=== PATIENT | female | born 1955 | race Caucasian/White ===

== ENCOUNTER 2025-02-01 17:14 | Outpatient (REF) | payer MEDICARE, MEDICAID, SELFPAY ==
[2025-02-01 17:38] LABS: Hematocrit 44.9 % (36.0-48.0); Hemoglobin 14.3 g/dL (12.0-16.0); Immature Granulocytes Abs Auto 0.18 10^3/uL (0.00-0.03); Immature Granulocytes Pct Auto 1.7 % (0.0-0.5); Lymphocytes Absolute Auto 2.8 10^3/uL (1.2-3.8); Mean Corpuscular HGB Conc 31.8 g/dL (29.9-35.2); Mean Corpuscular Hemoglobin 32.4 pg (26.7-34.0); Mean Corpuscular Volume 101.8 fL (81.0-99.0); Platelet Count 181 10^3/uL (150-450); Red Blood Count 4.41 10^6/uL (4.20-5.40); White Blood Count 10.5 10^3/uL (4.0-11.0)
[2025-02-01 17:52] LABS: Alanine Aminotransferase 16 U/L (14-59); Albumin Globulin Ratio 0.7; Albumin Level 3.0 g/dL (3.4-5.0); Alkaline Phosphatase 174 U/L (46-116); Anion Gap 9.6; Aspartate Amino Transferase 22 U/L (15-37); Blood Urea Nitrogen 15.0 mg/dL (7.0-18.0); Calcium 9.1 mg/dL (8.5-10.1); Carbon Dioxide 34.0 mmol/L (21.0-32.0); Chloride 105 mmol/L (98-107); Estimated GFR (African America >60 (>=60 mL/min/1.73m^2); Estimated GFR (Non-African Ame >60 (>=60 mL/min/1.73m^2); Globulin 4.6 g/dL; Glucose 77 mg/dL (74-106); Magnesium 2.0 mg/dL (1.8-2.4); Potassium 4.6 mmol/L (3.5-5.1); Sodium 144 mmol/L (136-145); Total Protein 7.6 g/dL (6.4-8.2)
== END 2025-02-01 17:15 | disposition home or self-care (01) ==
LOC: LAB 17:14
PROVIDERS: PCP Nurse Practitioner Family; Visit Provider Nurse Practitioner Family
DX: R41.82 Altered mental status, unspecified (principal)
CPT/HCPCS: 36415; 80053; 80164; 83735; 85025

== ENCOUNTER 2025-02-04 14:55 | Outpatient (REF) | payer MEDICARE, MEDICAID, SELFPAY ==
--- OUTSIDE RECORDS SUMMARY | 2025-01-21 15:16 | XMS_ITS | Encounter Summary ---
Author Organization [facility] [employer] [facility] Address [id number] [address] [place] [address] Care Team Providers Care Record Center Specialist Name Role Phone Sandy Tejeda ORCHARD WORKER-PASSENGER SERVICE AGENT Primary Care Provider [phone] Reason for Visit * Reason Comments Fall Pt arrives via ems f [facility]. Pt states she bent over to pick something up and fell backwards falling to her buttocks first. Pt c/o lower back, right ankle, and neck pain. Encounter Details Date Type Department Care Team (Late st Contact Info) Description 01/21/2025 3:16 PM EDT - 01/21/2025 6:10 PM EDT Emergency [facility] - Emergency [address] [place] [id number] Carmen Tejeda, DO [address] [place] [address] Fall, initial encounter (Primary Dx) Discharge Disposition: Home Social History Tobacco Use Types Packs/Day Years Used Date Smoking Tobacco: Former Cigarettes 1 20 Smokeless Tobacco: Never Comments:quit in early 's Alcohol Use Standard Drinks/Week Comments No 0 (1 standard drink = 0.6 oz pur e alcohol) Childcare Answer Date Recorded Childcare Unknown 12/27/2018 Employment Answer Date Recorded Employment Unknown 12/27/2018 Hunger Screening Answer Date Recorded Within the past 12 months we worried whether our food would run out before we got money to buy more. Never True 01/21/2025 Within the past 12 months th e food we bought just didn't last and we didn't have money to get more. Never True 01/21/2025 Purpose - Life Answer Date Recorded Purpose and direction in life Unknown Comments No Sex and Gender Information Value Date Recorded Sex Assigned at Female 08/08/2018 11:46 PM EST Legal Sex Female 11:59 AM EDT Gender Identity Female 08/08/2018 11:46 PM EST Sexual Orientation Straight 08/08/2018 11 :46 PM EST documented as of this encounter Last Filed Vital Signs Vital Sign Reading Time Taken Comments Blood Pressure 138/81 01/21/2025 3:17 PM EDT Pulse 78 01/21/2025 3:17 PM EDT Temperature 36.7 C (98.1 F) 01/21/2025 3:17 PM EDT Respiratory Rate 18 01/21/2025 3:17 PM EDT Oxygen Saturation 93% 01/21/2025 3:17 PM EDT Inhaled Oxygen Concentration - - Weight 81.6 kg (180 lb) 01/21/2025 3:17 PM EDT Height 167.6 cm (5' 6 ) 01/21/2025 3:17 PM EDT Body Mass Index 29.05 01/21/2025 3:17 PM EDT documented in this encounter Discharge Instructions * Discharge Instructions* Carmen Tejeda DO - 01/21/2025 6:01 PM EDT Please continue antibiotics as directed for your uti. If symptoms are persistent or become worse, please return to the emergency department immediately. If you have any other questions or concerns, please return to the emergency department immediately. documented in this encounter Medications at Time of Discharge amantadine (SYMMETREL) 100 mg tablet 02/18/2022 aspirin 81 mg chewable tablet Chew 1 tablet (81 mg total) and swallow in the morning. Stopped on 03/18/2017 for surgery. carbidopa-levodop a (SINEMET) 25-100 mg per tablet Take 1 tablet by mouth 3 (three) times a day. 10/16/2024 divalproex (DEPAKOTE) 500 mg EC tablet Take 1,000 mg by mouth nightly. lamoTRIgine (LaMICtal) 150 mg tablet Take 150 mg by mouth daily. mirabegron (MYRBETRIQ) 25 mg tablet extended release 24 hr Take 1 tablet (25 mg total) by mouth in the morning. 30 tablet 02/24/2022 multivitamin (THERAGRAN) tablet Take 1 tablet by mouth daily. OLANZapine (ZyPREXA) 5 mg tablet Take 5 mg by mouth nightly. propranolol LA (INDERAL LA) 120 mg 24 hr capsule Take 160 mg by mouth daily with breakfast. simvastatin (ZOCOR) 20 mg tablet Take 20 mg by mouth nightly. CEPHalexin (KEFLEX) 500 mg capsule Take 1 capsule (500 mg total) by mouth in the morning and 1 capsule (500 mg total) at noon and 1 capsule (500 mg total) in the evening and 1 capsule (500 mg total) before bedtime. Do all this for 7 days. 28 capsule 01/19/2025 01/26/2025 documented as of this encounter ED Notes * Tara Ho APRN-PASSENGER SERVICE AGENT - 01/21/2025 4:46 PM EDT Images from the original note were not included. [facility] - EMERGENCY Pt Name: Rosemary Horowitz Birthdate: 1955 Chief Complaint: Chief Complaint Patient presents with Fall Pt arrives via ems from [facility]. Pt states she bent over to pick something up and fell backwards falling to her buttocks first. Pt c/o lower back, right ankle, and neck pain. History of Present Illness: Patient here following a fall. She lives in an assisted living facility. Patient was recently diagnosed with urinary tract infection was started on antibiotics yesterday. Today she was bending over to pick something up when she lost her balance and fell backwards onto her buttocks. She was unsure if she was struck her head or lost consciousness. She does not appear to take a blood thinner. She was complaining of lower back pain. Also reports neck pain but states that this is chronic for her. Nochest or abdomen pain. No numbness tingling or weakness. No dizziness or lightheadedness. She does have history of Parkinson's, hyperlipidemia, hypertension, and bipolar disorder Past Medical History: Past Medical History: Diagnosis Date Bipolar affective disorder ([facility]-HCC) Broken wrist right Cancer ([facility]-HCC) skin cancer RODRIGUEZ (headache) HL (hearing loss) Hyperlipidemia Hyperparathyroidism Hypertension unsure how long Skin cancer Tremors of nervous system started on cogentin 2 weeks ago for this Urinary tract infection Visual impairment Past Surgical History: Past Surgical History: Procedure Laterality Date BACK SURGERY CARDIAC CATHETERIZATION unsure where or when COLONOSCOPY 2105 polyps removed COLONOSCOPY N/A 04/30/2021 Performed by Tanmay Ospina MD at [facility] CYSTOSCOPY N/A 04/14/2022 Performed by Xiang Murray MD at [facility] CYSTOSCOPY RETROGRADE PYELOGRAM WITH [facility] BLADDER SOLUTION Bilateral 04/14/2022 Performed by Xiang Murray MD at [facility] FRACTURE SURGERY 01/2017 right wrist PARATHYROIDECTOMY MINIMALLY INVASIVE /PTHI N/A 03/25/2017 Performed by Eliud Bradford MD at [facility] [place] SKIN LESION EXCISION x2 skin cancer TONSILLECTOMY age 6 TUBAL LIGATION Family History: Family History Problem Relation Age of Onset Cancer Mother Lung cancer Mother Hypertension Father Anesthesia problems Neg Hx Social History: Social History Socioeconomic History Marital status: Tobacco Use Smoking status: Former Current packs/day: 1.00 Average packs/day: 1 pack/day for 20.0 years (20.0 ttl pk-yrs) Types: Cigarettes Smokeless tobacco: Never Tobacco comments: quit in early Vaping Use Vaping status: Never Used Substance and Sexual Activity Alcohol use: No Drug use: No Sexual activity: Defer Social Drivers of Health Food Insecurity: No Food Insecurity (01/21/2025) Hunger Screening Food Insecurity - Worry: Never True Food Insecurity - Inability: Never True Review of Systems: Review of Systems Physical Exam: ED Triage Vitals [01/21/25 151] Temp Heart Rate Resp BP SpO2 36.7 ??C (98.1 ??F) 78 18 138/81 93 % Temp src Heart Rate Source Patient Position BP Location FiO2 (%) -- -- -- -- -- Vitals: 01/21/257 BP: 138/81 Temp: 36.7 ??C (98.1 ??F) Pulse: 78 Resp: 18 SpO2: 93% Height: 167.6 cm (5' 6 ) Weight: 81.6 kg (180 lb) 93 Physical Exam Vitals reviewed. HENT: Head: Normocephalic and atraumatic. Eyes: Conjunctiva/sclera: Conjunctivae normal. Neck: Comments: In his C-collar Cardiovascular: Rate and Rhythm: Normal rate. Pulmonary: Effort: Pulmonary effort is normal. Breath sounds: Normal breath sounds. Abdominal: General: There is no distension. Palpations: Abdomen is soft. Musculoskeletal: General: Tenderness present. Normal range of motion. Comments: Tender midline lumbar no obvious contusion or abrasion Skin: General: Skin is warm and dry. Neurological: General: No focal deficit present. Mental Status: She is alert and oriented to person, place, and time. GCS: GCS eye subscore is 4. GCS verbal subscore is 5. GCS motor subscore is 6. Procedure: Procedures Re-evaluation: Re-Evaluation Medical Decision Making Patient here for fall at a nursing facility. She leaned over to pick something up lost her balance and fell backwards onto her buttocks. She complains of back pain. CT scan of the head as neck and lumbar spine show no acute process though they noted some ground-glass opacities in the apex of her lung on CT neck. Patient was absolutely no respiratory complaints and she was saturating adequately. She can follow-up with a primary care provider regarding this. She will be discharged back to her nursing facility Amount and/or Complexity of Data Reviewed Radiology: ordered. Details: CT head interpreted by radiology shows no acute process CT cervical spine interpreted by radiology shows no acute process in the cervical spine but notes ground-glass opacities on left lung apex CT lumbar spine interpreted by radiology shows no acute process Pelvis x-ray interpreted by radiology shows no acute process Risk OTC drugs. ED Course: Clinical Impressions as of 01/21/251 Fall, initial encounter . ED Disposition ED Disposition Discharge Date/Time TueJan 21, 2025 6:01 PM Comment At the time of discharge, the plan has been discussed with the patient regarding the diagnosis and prognosis. All questions have been answered. Verbal discharge instructions were discussed with the patient. The patient has been advised to follow up w ith their Primary Care Provider within 1-2 days.The patient was also instructed to return to the ED if their symptoms change, worsen, new symptoms a rise or if they have any additional concerns. Shared/Split Visit 17:38 EDT IPhi), scribed for and in the presence of: Dr. Tejeda who performed the above service. I, Dr. Tejeda personally performed a [id number] diagnostic evaluation on this patient. I personally made and approved the management plan for this patient and take responsibility for the patient management. Additional Notes/Findings: ----- IPhi (scribe), documented on behalf of Dr. Tejeda. 5:39 PM Rosemary Horowitz is a 70 y.o. female presenting to the ED for chief complaint of a fall. Dr. Tejdea personally saw and evaluated the patient. Dr. Tejeda discussed the plan with the LUIS E/ Resident. Dr. Tejeda personally made/approved the management plan for this patient and takes responsibility for the patient management. Exam findings as follows: Constitutional: Awake and alert HENT: Normocephalic and atraumatic Eyes: Conjunctiva unremarkable Cardiovascular: Heart rate regular Pulmonary: Easy work of breathing, speaking in full sentences Abdominal: Flat and non-distended Skin: Warm and dry Musculoskeletal: Moving all extremities spontaneously ----- Please note that portions of this note were completed with a voice recognition program. Efforts were made to edit the dictations but occasionally words are mis-transcribed. ALETA Haddad 01/21/25 1648 Nam Levine 01/21/25 1740 ALETA Haddad 01/21/25 2201 Cosigned by Carmen Tejeda DO at 01/28/2025 10:02 AM EDT documented in this encounter Plan of Treatment Not on file documented as of this encounter Procedures Procedure Name Priority Date/Time Associated Diagnosis Comments XR PELVIS 1 OR 2 VWS STAT 01/21/2025 5:[address] LUMBAR SPINE WO CONT STAT 01/21/2025 4:[address] CERVICAL SPINE WO CONT STAT 01/21/2025 4:[address] BRAIN WO CONT STAT 01/21/2025 4:32 PM EDT documented in this encounter Results * X-ray pelvis 1 or 2 views (01/21/2025 5:53 PM EDT) Anatomical Region Laterality Modality MSK, Pelvis N/A Computed Radiogr aphy 01/21/2025 6:01 PM EDT Narrative 01/21/2025 6:01 PM EDT XR PELVIS 1 OR 2 VWS: 01/21/2025 5:44 PM Clinical: Injury with pain EXAM: PELVIS RADIOGRAPH Number of views: 1 Comparison: None Findings: There is no fracture or destructive lesion. Mild bilateral hip and lower lumbar degenerative changes. There is no distraction of SI joints or pubic symphysis. Impression: * No acute findings to limits of this single view. Finalized by Darryn Key MD on 01/21/2025 6:01 PM Procedure Note Darryn Key MD - 01/21/2025 XR PELVIS 1 OR 2 VWS: 01/21/2025 5:44 PM Clinical: Injury with pain EXAM: PELVIS RADIOGRAPH Number of views: 1 Comparison: None Findings: There is no fracture or destructive lesion. Mild bilateral hip and lower lumbar degenerative changes. There is no distraction of SI joints or pubic symphysis. Impression: * No acute findings to limits of this single view. Finalized by Darryn Key MD on 01/21/2025 6:01 PM us Tara Ho ORCHARD WORKER-PASSENGER SERVICE AGENT IMG DIAGNOSTIC IMAGIN G ORDERABLES Final Result * CT lumbar spine without contrast (01/21/2025 4:33 PM EDT) Anatomical Region Laterality Modality MSK, Neuro, Spine, L-spine, Spine Covera N/A Computed Tomography 01/21/2025 5:13 PM EDT Narrative 01/21/2025 5:15 PM EDT CLINICAL INFORMATION: Fall with low back pain COMPARISON: None TECHNIQUE: CT lumbar spine without contrast. All CT scans at this facility dose modulation, iterative reconstruction, and/or weight based dosing when appropriate to reduce radiation dose to as low as reasonably achievable. FINDINGS: Satisfactory alignment of the lumbar spine. There is partial sacralization at L5. Vertebral body heights are preserved. No compression fracture visualized. Moderate intervertebral disc space height loss with osteophyte formation at L3-4 and L4-5. Mild intervertebral disc space height loss with osteophyte formation at L2-L3. The posterior elements are intact. Mild facet joint hypertrophy at L4-5. The SI joints are symmetric with mild degenerative sclerosis. No paraspinal mass or fluid collection. IMPRESSION: 1. No acute osseous abnormality in the lumbar spine. 2. Mild to moderate degenerative changes in the lower lumbar spine as above. Finalized by uMmtaz Fox MD on 01/21/2025 5:15 PM Procedure Note Mumtaz Fox MD - 01/21/2025 CLINICAL INFORMATION: Fall with low back pain COMPARISON: None TECHNIQUE: CT lumbar spine without contrast. All CT scans at this facilitydose modulation, iterative reconstruction, and/or weight based dosing whenappropriate to reduce radiation dose to as low as reasonably achievable. FINDINGS: Satisfactory alignment of the lumbar spine. There is partial sacralization at L5. Vertebral body heights are preserved. No compression fracturevisualized. Moderate intervertebral disc space height loss with osteophyte formationat L3-4 and L4-5. Mild intervertebral disc space height loss withosteophyte formation at L2- L3. The posterior elements are intact. Mild facet joint hypertrophy at L4-5. The SI joints are symmetric with mild degenerative sclerosis. No paraspinal mass or fluid collection. IMPRESSION: 1. No acute osseous abnormality in the lumbar spine. 2. Mild to moderate degenerative changes in the lower lumbar spine asabove. Finalized by Mumtaz Fox MD on 01/21/2025 5:15 PM us Tara Ho ORCHARD WORKER-PASSENGER SERVICE AGENT IMG CT ORDERABLES Fin al Result * CT cervical spine without contrast (01/21/2025 4:33 PM EDT) Anatomical Region Laterality Modality MSK, Neuro, Spine, C-spine, Spine Covera N/A Computed Tomography 01/21/2025 4:50 PM EDT Narrative 01/21/2025 4:[address] CERVICAL SPINE WO CONT INDICATION: Fall, neck trauma. TECHNIQUE: CT of the cervical spine without intravenous contrast. Sagittal and coronal reformats created and reviewed. COMPARISON: None. FINDINGS: Straightening of the usual cervical lordosis. There is no evidence of acute fracture or dislocation. The spinal canal is patent. No prevertebral or paraspinal soft tissue swelling. If there is concern for ligamentous or cord injury MRI could be helpful in further evaluation. There are mild multilevel degenerative changes without significant spinal stenosis. Subtle groundglass changes left lung apex. Recommend chest CT. Heterogeneous thyroid with calcifications, nodules, largest nodule on the left roughly 7 mm. IMPRESSION: 1. No acute traumatic injury of the cervical spine. If there is concern for ligamentous or cord injury MRI could be helpful in further evaluation. 2. Subtle groundglass changes left lung apex. Recommend chest CT. THIS REPORT CONTAINS A SIGNIFICANT RESULT AND/OR RECOMMENDATION, WHICH REQUIRES THE ATTENTION OF THE LICENSED CAREGIVER RESPONSIBLE FOR THIS PATIENT. THEREFORE, I SPECIFICALLY DESIGNATED THIS REPORT TO BE TELEPHONED BY THE RADIOLOGY DEPARTMENT. FINDINGS WERE INSTRUCTED TO BE CALLED TO THE CLINICAL SERVICE ON 01/21/2025 4:[address] scans at this facility use dose modulation, iterative reconstruction, and/or weight based dosing when appropriate to reduce radiation dose to as low as reasonably achievable. Finalized by Jason Acevedo MD on 01/21/2025 4:55 PM Procedure Note Jason Acevedo MD - 01/21/2025 CT CERVICAL SPINE WO CONT INDICATION: Fall, neck trauma. TECHNIQUE: CT of the cervical spine without intravenous contrast. [place] coronal reformats created and reviewed. COMPARISON: None. FINDINGS: Straightening of the usual cervical lordosis. There is no evidence ofacute fracture or dislocation. The spinal canal is patent. No prevertebralor paraspinal soft tissue swelling. If there is concern for ligamentous orcord injury MRI could be helpful in further evaluation. There are mild multilevel degenerative changes without significant spinalstenosis. Subtle groundglass changes left lung apex. Recommend chest CT. Heterogeneous thyroid with calcifications, nodules, largest nodule on theleft roughly 7 mm. IMPRESSION: 1. No acute traumatic injury of the cervical spine. If there is concernfor ligamentous or cord injury MRI could be helpful in further evaluation. 2. Subtle groundglass changes left lung apex. Recommend chest CT. THIS REPORT CONTAINS A SIGNIFICANT RESULT AND/OR RECOMMENDATION, WHICHREQUIRES THE ATTENTION OF THE LICENSED CAREGIVER RESPONSIBLE FOR THISPATIENT. THEREFORE, I SPECIFICALLY DESIGNATED THIS REPORT TO BE TELEPHONED BY THERADIOLOGY DEPARTMENT. FINDINGS WERE INSTRUCTED TO BE CALLED TO THE CLINICAL SERVICE ON 54:[address] scans at this facility use dose modulation, iterativereconstruction, and/or weight based dosing when appropriate to reduceradiation dose to as low as reasonably achievable. Finalized by Jason Acevedo MD on 01/21/2025 4:55 PM us Tara Ho ORCHARD WORKER-PASSENGER SERVICE AGENT IMG CT ORDERABLES Fin al Result * CT brain without contrast (01/21/2025 4:32 PM EDT) Anatomical Region Laterality Modality Neuro, Head, Head and Neck, Neuro Covera N/A Computed Tomography 01/21/2025 4:36 PM EDT Narrative 01/21/2025 4:[address] BRAIN WO CONT INDICATION: Fall, head injury. TECHNIQUE: CT of the head without intravenous contrast. Reviewed in brain, bone, and soft tissue windows. COMPARISON: 06/26/2024. FINDINGS: No intracranial hemorrhage. Scattered periventricular and deep cortical white matter areas of low attenuation, likely representing sequelae of chronic microangiopathy. No territorial loss of west-white differentiation. Mild to moderate cerebral volume loss with appropriate size and morphology of the ventricular system. No extra-axial fluid collections or shift of midline structures. Patent basal cisterns. No depressed or displaced calvarial fracture. IMPRESSION: 1. No acute intracranial abnormality. 2. Senescent changes including cerebral volume loss and sequelae of chronic microangiopathy. 3. If there is sufficient clinical concern for acute ischemia or an occult abnormality, further evaluation with brain MRI is recommended. All CT scans at this facility use dose modulation, iterative reconstruction, and/or weight based dosing when appropriate to reduce radiation dose to as low as reasonably achievable. Finalized by Jason Acevedo MD on 01/21/2025 4:42 PM Procedure Note Jason Acevedo MD - 01/21/2025 CT BRAIN WO CONT INDICATION: Fall, head injury. TECHNIQUE: CT of the head without intravenous contrast. Reviewed inbrain, bone, and soft tissue windows. COMPARISON: 06/26/2024. FINDINGS: No intracranial hemorrhage. Scattered periventricular and deep corticalwhite matter areas of low attenuation, likely representing sequelae ofchronic microangiopathy. No territorial loss of west-whitedifferentiation. Mild to moderate cerebral volume loss with appropriate size and morphologyof the ventricular system. No extra-axial fluid collections or shift ofmidline structures. Patent basal cisterns. No depressed or displaced calvarial fracture. IMPRESSION: 1. No acute intracranial abnormality. 2. Senescent changes including cerebral volume loss and sequelae ofchronic microangiopathy. 3. If there is sufficient clinical concern for acute ischemia or an occultabnormality, further evaluation with brain MRI is recommended. All CT scans at this facility use dose modulation, iterativereconstruction, and/or weight based dosing when appropriate to reduceradiation dose to as low as reasonably achievable. Finalized by Jason Acevedo MD on 01/21/2025 4:42 PM Tara Ho ORCHARD WORKER-PASSENGER SERVICE AGENT IMG CT ORDERABLES Fin al Result documented in this encounter Visit Diagnoses Diagnosis Fall, initial encounter- Primary documented in this encounter Administered Medications Inactive Administered Medications - up to 3 most recent administrations Medication Order MAR Action Action Date Dose Rate Site acetaminophen (TYLENOL EXTRA STRENGTH) tablet 1,000 mg 1,000 mg, oral, Once, On Tue01/21/25 at 1735, For 1 dose Given 01/21/2025 5:35 PM EDT 1,000 mg documented in this encounter Active and Recently Administered Medications Times are shown in EDT. Scheduled Medication Order 01/19/2025 01/20/2025 01/21/2025 acetaminophen (TYLENOL EXTRA STRENGTH) tablet 1,000 mg (COMPLETED) 1,000 mg, oral, Once, On Tue01/21/25 at 1735, For 1 dose 1735 (Given - Provid er: Maria Hodges RN) documented in this encounter Care Teams Record Center Specialist Relationship Specialty Start Date End Date Sandy Tejeda, ORCHARD WORKER-PASSENGER SERVICE AGENT [address] [id number] PCP - General Nurse Practitioner 10/18/24 documented as of this encounter
--- OUTSIDE RECORDS SUMMARY | 2025-02-04 14:58 | XMS_ITS | Encounter Summary ---
Author Organization [facility] tem Address [id number] [address] [place] [address] Care Team Providers Care Data Miner Name Role Phone Sandy Tejeda CULLED FRUIT PACKER-ENGLISH INSTRUCTOR Primary Care Provider [phone]- [phone] Encounter Details Date Type Department Care Team ([facility] st Contact Info) Description 03/25/2022 Telephone [facility] [address] [place] [phone] Heather Gregorio PA [address] [place], [place] [id number] Social History Tobacco Use Types Packs/Day Years Used Date Smoking Tobacco: Former Smokeless Tobacco: Never Comments:quit 2007 Alcohol Use Standard Drinks/Week Comments No 0 (1 standard drink = 0.6 oz pur e alcohol) Childcare Answer Date Recorded Childcare Unknown 12/27/2018 Employment Answer Date Recorded Employment Unknown 12/27/2018 Purpose - Life Answer Date Recorded Purpose and direction in life Unknown Comments No Sex and Gender Information Value Date Recorded Sex Assigned at Female 08/08/2018 11:46 PM EST Legal Sex Female 11:59 AM EDT Gender Identity Female 08/08/2018 11:46 PM EST Sexual Orientation Straight 08/08/2018 11 :46 PM EST COVID-19 Exposure Response Date Recorded In the last month, have you been in contact with someone who was confirmed or suspected to have Coronavirus / COVID-19? No / Unsure 03/24/2022 9:40 AM EDT documented as of this encounter Miscellaneous Notes * Telephone Encounter - ADRIÁN Arceo - 03/25/2022 6:10 PM EDT Please schedule her for a renal ultrasound in 1 year and an appointment with Dr. Murray in [place] for the results documented in this encounter Plan of Treatment Not on file documented as of this encounter Visit Diagnoses Diagnosis Angiomyolipoma- Primary documented in this encounter Care Teams Data Miner Relationship Specialty Start Date End Date Sandy Tejeda, CULLED FRUIT PACKER-ENGLISH INSTRUCTOR [address] [place] [address] PCP - General Nurse Practitioner 10/18/24 documented as of this encounter
--- OUTSIDE RECORDS SUMMARY | 2025-02-04 14:58 | XMS_ITS | Encounter Summary ---
Author Organization [facility] [facility] Address [id number] [address] [place] [address] Care Team Providers Care Supervisor Fish Bait Processing Name Role Phone Sandy Tejeda AUDITOR MEDICAL CLAIMS-SENIOR VICE PRESIDENT Primary Care Provider [phone]- [phone] Encounter Details Date Type Department Care Team ([facility] st Contact Info) Description 08/18/2022 [facility] [address] [place] [phone] External, Scanning Provider Social History Tobacco Use Types Packs/Day Years Used Date Smoking Tobacco: Former Cigarettes 1 20 Smokeless Tobacco: Never Comments:quit in early Alcohol Use Standard Drinks/Week Comments No 0 [...] PM EST documented as of this encounter Plan of Treatment Not on file documented as of this encounter Procedures Procedure Name Priority Date/Time Associated Diagnosis Comments XR ABDOMEN AP AND ERECT ONLY Routine 08/20/2022 12:51 PM EST documented in this encounter Results * X-ray abdomen ap and erect only (08/20/2022 12:51 PM EST) Anatomical Region Laterality Modality Body, Abdomen N/A Computed Radiogr aphy us Scanning Provider External IMG DIAGNOSTIC IMAGIN G ORDERABLES Final Result documented in this encounter Visit Diagnoses Not on filedocumented in this encounter Care Teams Supervisor Fish Bait Processing Relationship Specialty Start Date End Date Sandy Tejeda, AUDITOR MEDICAL CLAIMS-SENIOR VICE PRESIDENT [address] [address] PCP - General Nurse Practitioner 10/18/24 documented as of this encounter
--- OUTSIDE RECORDS SUMMARY | 2025-02-04 14:58 | XMS_ITS | Clinical Summary ---
Author Organization [facility] Address [id number] [address] [place] [address] Care Team Providers Care Proposal Manager Writer Name Role Phone Sandy Tejeda FOREIGN STUDENT ADVISER-WORKFLOW DEVELOPER Primary Care Provider [phone]- [phone] Allergies Active Allergy Reactions Criticality Noted Date Comments Oxycodone-Acetaminophen Nausea 02/24/2022 Medications propranolol LA (INDERAL LA) 120 mg 24 hr capsule Take 160 mg by mouth daily with breakfast. Active divalproex (DEPAKOTE) 500 mg EC tablet Take 1,000 mg by mouth nightly. Active simvastatin (ZOCOR) 20 mg tablet Take 20 mg by mouth nightly. Active aspirin 81 mg chewable tablet Chew 1 tablet (81 mg total) and swallow in the morning. Stopped on 03/18/2017 for surgery. Active multivitamin (THERAGRAN) tablet Take 1 tablet by mouth daily. Active OLANZapine (ZyPREXA) 5 mg tablet Take 5 mg by mouth nightly. Active lamoTRIgine (LaMICtal) 150 mg tablet Take 150 mg by mouth daily. Active amantadine (SYMMETREL) 100 mg tablet 02/18/2022 Active mirabegron (MYRBETRIQ) 25 mg tablet extended release 24 hr Take 1 tablet (25 mg total) by mouth in the morning. 30 tablet 02/24/2022 Active carbidopa-levod opa (SINEMET) 25-100 mg per tablet Take 1 tablet by mouth 3 (three) times a day. 10/16/2024 Active CEPHalexin (KEFLEX) 500 mg capsule Take 1 capsule (500 mg total) by mouth in the morning and 1 capsule (500 mg total) at noon and 1 capsule (500 mg total) in the evening and 1 capsule (500 mg total) before bedtime. Do all this for 7 days. 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 We will recheck in 1 year with an ultrasound Recurrent UTI 02/24/2022 Overview (05/31/2022): ==== 05/31/2022 ==== ### cystoscopy negative for cystitis. Retrograde pyelogram no filling defects or obstruction. Some increased ability of bladder but eventually cleared. U of M solution placed as well. ====03/25/22====US showed concerned for renal calcifications. She agreed to CT for further characterization which was negative for renal stones. ====02/24/22====We will check renal/bladder US with PVR and schedule cystoscopy/possible BRPG/U of M instillation. Assessment & Plan (05/31/2022 4:45 PM EST): No interval UTI since last visit. Assessment & Plan (02/24/2022 12:36 PM EDT): I told her to call any time she suspects a Urinary tract infection so we can place an order for UA/C&S. She is symptomatic today although UA is negative, we will send for culture. We will call her with the results. Urinary frequency 02/24/2022 Overview (02/24/2022): ====02/24/22==== longstanding urinary frequency and urgency. Recent abdominal cramping. We will try her on Myrbetriq 25 mg. Assessment & Plan (02/24/2022 12:36 PM EDT): She will call if she wants me to place an order to her pharmacy or if she wants to try the higher dose. We will check a PVR at the time of her ultrasound MADDISON (obstructive sleep apnea) 06/08/2017 Primary hyperparathyroidism 03/16/2017 Encounters Date Type Department Care Team Description 01/21/2025 3:16 PM EDT - 01/21/2025 6:10 PM EDT Emergency [facility] [address] [place] [address] Carmen Tejeda DO Fall, initial encounter (Primary Dx) Discharge Disposition: Home 01/21/2025 Travel 01/19/2025 7:49 PM EDT - 01/19/2025 9:20 PM EDT Emergency [facility] - Emergency [address] [place] [address] Penelope Lui, Acute cystitis with hematuria (Primary Dx) Discharge Disposition: Home 01/19/2025 Travel 11/08/2024 10:30 AM EDT - 11/08/2024 11:59 PM EDT Hospital Encounter [facility] - Lab [address] [place] [address] Other residential (current) drug therapy (Primary Dx) Discharge Disposition: Home 11/08/2024 Travel from Last 3 Months Family History Medical History Relation Name Comments Hypertension Father Cancer Mother Lung cancer Mother Anesthesia problems Neg Hx Relation Name Status Comments Brother Alive Daughter Alive Father Mother Sister Alive Son Alive Social History Tobacco Use Types Packs/Day Years Used Date Smoking Tobacco: Former Cigarettes 1 20 Smokeless Tobacco: Never Tobacco Cessation:Counseling Given: Yes Comments:quit in early 's Alcohol Use Standard [...] Orientation Straight 08/08/2018 11 :46 PM EST Last Filed Vital Signs Vital Sign Reading [...] Mass Index 29.05 01/21/2025 3:17 PM EDT Plan of Treatment Health Maintenance Due Date Last Done Comments Depression Screening 1967 Adult BMI Follow Up Plan 01/12/1974 Zoster (Shingles) Vaccine (1 of 2) 01/12/2006 Fall Risk Screening 01/12/2021 Influenza Vaccine 03/18/2025 05/07/2019, , 06/26/2018, Additional history exists Adult BMI Screening 01/21/2026 01/21/2025 Tobacco Screening 01/21/2026 01/21/2025 DTaP,Tdap and Td Vaccines (2 - Td or Tdap) 05/12/2026 05/12/2016 Medical Devices Not on file Procedures Procedure Name Priority Date/Time Associated Diagnosis Comments XR PELVIS 1 OR 2 VWS STAT 01/21/2025 5:[address] LUMBAR SPINE WO CONT STAT 01/21/2025 4:[address] CERVICAL SPINE WO CONT STAT 01/21/2025 4:[address] BRAIN WO CONT STAT 01/21/2025 4:32 PM EDT URINE CULTURE STAT 01/19/2025 9:00 PM EDT POCT NURSING URINE MACROSCOPIC UA Routine 01/19/2025 8:02 PM EDT VALPROIC ACID DEPAKANE Routine 11/08/2024 10:37 AM EDT Other intermediate school teacher (current) drug therapy from Last 3 Months Results * X-ray pelvis 1 or 2 [...] Darryn Key MD on 01/21/2025 6:01 PM Tara Ho FOREIGN STUDENT ADVISER-WORKFLOW DEVELOPER IMG DIAGNOSTIC IMAGIN G ORDERABLES Final Result [...] lower lumbar spine as above. Finalized by Mumtaz Fox MD on 01/21/2025 5:15 PM Procedure [...] Mumtaz Fox MD on 01/21/2025 5:15 PM Tara Ho FOREIGN STUDENT ADVISER-WORKFLOW DEVELOPER IMG CT ORDERABLES [facility] al Result * CT cervical spine without [...] Jason Acevedo MD on 01/21/2025 4:55 PM Tara Ho FOREIGN STUDENT ADVISER-WORKFLOW DEVELOPER IMG CT ORDERABLES Fin al Result * [...] MD on 01/21/2025 4:42 PM Tara Ho FOREIGN STUDENT ADVISER-WORKFLOW DEVELOPER IM CT ORDERABLES Fin al Result * Urine Culture Urine, Clean Catch Midstream (01/19/2025 9:00 PM EDT) CULTURE RESULTS NO GROWTH AT <1000 CFU/mL 01/21/2025 9:29 AM EDT [facility] Urine Urine specimen collection, clean catch / Unknown 01/19/2025 9:00 PM EDT 01/19/2025 9:11 PM EDT Penelope Lui DO MICROBIOLOGY - GENERAL ORDER JOSE MARIA Final Result [facility] [address] [place] [address], [place] [phone] * (ABNORMAL) POCT Nursing Urine Macroscopic UA (01/19/2025 8:02 PM EDT) POC Urine Specific Mathis <=1.005(A) 1.010, 1.015, 1.020, 1.025 01/19/2025 7:55 PM EDT [facility] Urine Leukocyte Esterase Moderate(A) Negative 01/19/2025 7:55 PM EDT [facility] Urine Nitrite Negative Negative 01/19/2025 7:55 PM EDT [facility] Urine pH 6.0 5.0, 6.0, 6.5, 7.0, 7.5, 8.0, 8.5, 5.5 01/19/2025 7:55 PM EDT [facility] Urine Protein Negative Negative 01/19/2025 7:55 PM EDT [facility] Urine Glucose Negative Negative 01/19/2025 7:55 PM EDT [facility] Urine Ketones Negative Negative 01/19/2025 7:55 PM EDT [facility] Urine Urobilinogen 0.2 E.U./dL 01/19/2025 7:55 PM EDT [facility] Urine Bilirubin Negative Negative 01/19/2025 7:55 PM EDT [facility] Urine Blood/HGB Moderate(A) Negative 01/19/2025 7:55 PM EDT [facility] Urine 01/19/2025 8:02 PM EDT 01/19/2025 7:55 PM EDT us POINT OF CARE TEST ORDERABLES Fi nal Result [facility] [address] [place] [address], [place] * Valproic acid, depakane (11/08/2024 10:37 AM EDT) Valproic acid 61 50 - 100 ug/mL 11/08/2024 1:51 PM EDT [facility] 11/08/2024 10:3 7 AM EDT 11/08/2024 10:39 AM EDT us Nathalie Lindsay FOREIGN STUDENT ADVISER-WORKFLOW DEVELOPER LAB BLOOD ORDERABLES Fin al Result PA [facility] [address] [facility] [place] [address] from Last 3 Months Insurance [employer] [place] Care Teams Proposal Manager Writer Relationship Specialty Start Date End Date Sandy Tejeda, FOREIGN STUDENT ADVISER-WORKFLOW DEVELOPER [address] [facility] [address] [place] [address] PCP - General Nurse Practitioner 10/18/24
--- OUTSIDE RECORDS SUMMARY | 2025-02-04 14:58 | XMS_ITS | Clinical Summary ---
Author Organization [facility] Address [address] [place] [address] Care Team Providers Care Paper Inserter Name Role Phone Carmen Rosales Primary Care Provider [phone] Leida Morrison Unavailable Unavailable Allergies No known active allergies Medications propranolol ER (INDERAL LA) 160 mg Cs24 Take 160 mg by mouth once daily. Active lamoTRIgine (LAMICTAL) 100 mg tablet Take 100 mg by mouth once daily. Active simvastatin (ZOCOR) 20 mg tablet Take 20 mg by mouth daily at bedtime. Active divalproex ER (DEPAKOTE ER) 500 mg 24 hr tablet Take 500 mg by mouth once daily. Active olanzapine (ZYPREXA ORAL) Take by mouth at bedtime as needed. Active benztropine (COGENTIN) 1 mg tablet Take 1 mg by mouth twice daily. Active aspirin, enteric coated (ASPIRIN, ENTERIC COATED) 81 mg EC tablet Take 81 mg by mouth once daily. Active mv-mn/folic acid/calcium/vi t K (ONE-A-DAY WOMEN'S 50 PLUS ORAL) Take by mouth once daily. Active BENEFIBER, GUAR GUM, ORAL Take by mouth. Takes 2 Tsp at night Active IBUPROFEN ORAL Take by mouth as needed. Active acetaminophen (TYLENOL ORAL) Take by mouth as needed. Active meloxicam (MOBIC) 7.5 mg tablet Take 1 tablet by mouth daily with breakfast. 14 tablet 1 07/09/2019 Active Active Problems Problem Noted Date Diagnosed Date Thrombocytopenia 02/14/2018 Osteoarthritis of both knees 02/14/2018 Positive SANDRA (antinuclear antibody) 02/14/2018 Social History Tobacco Use Types Packs/Day Years Used Date Smoking Tobacco: Former Smokeless Tobacco: Never PHQ-2 Answer Date Recorded PHQ-2 score 4 06/22/2019 Area Deprivation Index Answer Date Juan rded National Score (1-100), lower number is lower ri sk Not on file 06/24/2020 State Score (1-10), lower number is lower risk N ot on file 06/24/2020 Data from: https://www.neighborhoodatlas.[facility]/. Last address used for calculation Not on file 06/24/2020 Comments Unknown Sex and Gender Information Value Date Recorded Sex Assigned at Not on file Legal Sex Female 9:08 AM EDT Gender Identity Not on file Sexual Orientation Not on file Last Filed Vital Signs Vital Sign Reading Time Taken Comments Blood Pressure 145/58 06/22/2019 7:44 AM EST Pulse 68 06/22/2019 7:44 AM EST Temperature 36.9 C (98.5 F) 06/22/2019 7:44 AM EST Respiratory Rate - - Oxygen Saturation - - Inhaled Oxygen Concentration - - Weight 75.2 kg (165 lb 12.8 oz) 06/22/2019 7:44 AM EST Height 162 cm (5' 3.78 ) 06/22/2019 7:44 AM EST Body Mass Index 28.66 06/22/2019 7:44 AM EST Plan of Treatment Health Maintenance Due Date Last Done Comments Anxiety Screening 01/12/1974 Depression Screening 01/12/1974 Hepatitis C Screening 01/12/[address] Colonography 01/12/2001 Cologuard (FIT-DNA) 01/12/2001 Colonoscopy 01/12/2001 Colorectal Cancer Screening 01/12/2001 Fecal Occult Blood 01/12/2001 Sigmoidoscopy 01/12/2001 Shingrix Vaccine (1 of 2) 01/12/2006 Pneumococcal Vaccine: 50+ (2 of 2 - PCV) 05/07/2020 05/07/2019 Covid-19 Vaccine (1 - 2023-2 5 season) 2024 Advance Directive Discussion 07/18/2024 Influenza Vaccine (#1) 2025 9, 03/21/2019, 05/13/2017, Additional history exists DTaP,Tdap,Td Vaccine (2 - Td or Tdap) 05/12/2026 05/12/2016 Diabetes Screening 06/26/2027 06/26/2024, 1 08/11/2023, 11/06/2021, Additional history exists Lipid Screening 07/02/2029 07/02/2024, 0401/2022, 09/19/2017 RSV Vaccine (1 - 1-dose 75+ series) 01/12/2031 Bone Density Screening Completed 08/08/2018 Procedures Procedure Name Priority Date/Time Associated Diagnosis Comments COMPREHENSIVE METABOLIC PANEL Routine 06/22/2019 9:14 AM EST Chronic pain of both knees Primary osteoarthritis of both knees from Last 3 Months or Most Recently Relevant to Health Maintenance Results * (ABNORMAL) COMP METABOLIC PANEL (06/22/2019 9:14 AM EST) Pathologist [facility] Protein, Total 7.8 6.3 - 8.0 g/dL 06/22/2019 11:48 AM EST [facility] Albumin 4.2 3.9 - 4.9 g/dL 06/22/2019 11:48 AM EST [facility] Calcium 9.4 8.5 - 10.2 mg/dL 06/22/2019 11:48 AM EST [facility] Bilirubin, Total 0.2 0.2 - 1.3 mg/dL 06/22/2019 11:48 AM EST [facility] Alkaline Phosphatase 92 34 - 123 U/L 06/22/2019 11:48 AM EST [facility] AST 16 13 - 35 U/L 06/22/2019 11:48 AM EST [facility] Glucose 102(H) 74 - 99 mg/dL 06/22/2019 11:48 AM EST [facility] Comment: The [place] Diabetes Association (ADA) provides guidance for cutoff values for fasting glucose and random glucose. The ADA defines fasting as no caloric intake for at least 8 hours. Fasting plasma glucose results between 100 to 125 mg/dL indicate increased risk for diabetes (prediabetes). Fasting plasma glucose results greater than or equal to 126 mg/dL meet the criteria for diagnosis of diabetes. In the absence of unequivocal hyperglycemia, results should be confirmed by repeat testing. In a patient with classic symptoms of hyperglycemia or hyperglycemic crisis, random plasma glucose results greater than or equal to 200 mg/dL meet the criteria for diagnosis of diabetes. Reference: Standards of Medical Care in Diabetes 2016, [place] Diabetes Association. Diabetes Care. 2016.39(Suppl 1). BUN 16 7 - 21 mg/dL 06/22/2019 11:48 AM EST [facility] Creatinine 0.60 0.58 - 0.96 mg/dL 06/22/2019 11:48 AM [facility] Sodium 143 136 - 144 mmol/L 06/22/2019 11:48 AM EST [facility] Potassium 4.5 3.7 - 5.1 mmol/L 06/22/2019 11:48 AM [facility] Chloride 104 97 - 105 mmol/L 06/22/2019 11:48 AM [facility] CO2 26 22 - 30 mmol/L 06/22/2019 11:48 AM [facility] Anion Gap 13 9 - 18 mmol/L 06/22/2019 11:48 AM [facility] ALT 7 7 - 38 U/L 06/22/2019 11:48 AM [facility] eGFR- >60 06/22/2019 11:48 AM [facility] eGFR-All Other Races >60 . 06/22/2019 11:48 AM EST [facility] Comment: eGFR (Estimated GFR) Units of measure: mL/min/1.73 meters squared eGFR is derived from the reexpressed MDRD Study equation using the following parameters: serum creatinine, age, gender and race. The creatinine assay has been calibrated to be traceable to IDMS. An eGFR <60 mL/min/1.73m2 for >3 months is consistent with chronic kidney disease. Refer to KDOQI guidelines for clinical interpretation. In patients with unstable renal function, e.g. those with acute kidney injury, the eGFR may not accurately reflect actual GFR. Blood specimen (specimen) BLOOD SPECIMEN / Unknown 06/22/2019 9:14 AM EST 06/22/2019 9:16 AM EST Daniel Lala DO LABORATORY Final Result [facility] [address] [place] [address] [facility] [address] [place] [address] from Last 3 Months or Most Recently Relevant to Health Maintenance Insurance [employer] Care Teams Paper Inserter Relationship Specialty Start Date End Date Carmen Rosales [address] [place] [id number] PCP - General Family Medicine 02/14/18 Leida Morrison Referring 06/19/19
--- OUTSIDE RECORDS SUMMARY | 2025-02-04 14:58 | XMS_ITS | Continuity of Care Document ---
Author [facility] Address [address] [place] [address] Problems Unknown Problems Results Test Value / Unit Interpretation Reference Ran ge SARS-CoV-2 (COVID-19), RT-PC R/TMA[[id number]] Collected: 04/27/2021 02:07 PM Specimen Received: 04/28/2021 06:15 PM SARS-CoV-2 INTERPRETATION [[id number]] Negative Fadumo l See Note SARS-CoV-2 RNA NOT DETECTEDN egative results do not preclude SARS-CoV-2 infection and should notbe used as the sole basis for patient management decisions. Negativeresults must be combined with clinical observations, patient history,and epidemiological information. Optimum specimen types and timingfor peak viral levels during infections caused by SARS-CoV-2 have notbeen determined. Collection of multiple specimens or types ofspecimens may be necessary to detect virus. Improper specimencollection and handling, sequence variability under primers/probes,or organism present below the limit of detection may lead to falsenegative results. Positive and negative predictive values oftesting are highly dependent on prevalence. False negative testresults are more likely when prevalence is high. SOURCE [[id number]] NASOPHARYNGEAL Normal Note: Methodology is Noreen Mlogas Real-Time RT-PCR. The expected result or reference range is NEGATIVE (Not Detected). For more information regarding COVID-19 testing to include clinicalinformation, methodology detail, intended use, FDA authorization andrecommended fact sheets for patients or healthcare providers, see NewTest Announcement: SARS-CoV-2 (COVID-19) by NAAT at URL below (note,fact sheets are provided by method given in report:[email or web address]/ Alternatively, see downloadable PDF fact sheet at:[email or web address]/[email or web address]-[email or web address]-PCR Allergies, adverse reactions, alerts No known allergies and adverse reactions Medications No administered medications reported Vital Signs No vital signs reported Social History No smoking Hx information available
--- OUTSIDE RECORDS SUMMARY | 2025-02-04 14:58 | XMS_ITS | Encounter Summary ---
Author Organization [employer] tem Address [id number] [address] [place] [address] Care Team Providers Care Powerhouse Mechanic Supervisor Name Role Phone Sandy Tejeda Primary Care Provider [phone] Encounter Details Date Type Department Care Team (Latest Contact Info) Description 01/21/2025 Travel Social History Tobacco Use Types Packs/Day Years [...] documented as of this encounter Visit Diagnoses Not on filedocumented in this encounter Care Teams Powerhouse Mechanic Supervisor Relationship Specialty Start Date End Date Sandy Tejeda, ALETA [address] [place] [address] PCP - General Nurse Practitioner 10/18/24 documented as of this encounter
--- OUTSIDE RECORDS SUMMARY | 2025-02-04 14:58 | XMS_ITS | Encounter Summary ---
Author Organization [facility] Address [id number] [address] [place] [address] Care Team Providers Care Boiler Welder Name Role Phone Sandy Tejeda PHOTONICS ENGINEER-SLOT TAG INSERTER Primary Care Provider [phone]- [phone] Reason for Referral * Diagnostic Imaging (Routine) - Closed Specialty Diagnoses / Procedures Referred By Haider egan Referred To Contact Radiology Diagnoses Abnormal ultrasound of both kidneys Procedures CT abdomen and pelvis without contrast Heather Gregorio PA [facility] [place] [address] Phone: tel: fax: [id number] [place] [address] Phone: tel: Referral ID Status Reason Start Date Expiration Date Visits Re quested Visits Authorized [id number] Closed 03/10/2022 03/10/2023 1 1 Encounter Details Date Type Department Care Team ([facility] st Contact Info) Description 03/10/2022 Telephone [facility] [address] [place] [address] Heather Gregorio PA [address] [place] [id number] Social History Tobacco Use Types Packs/Day Years [...] have Coronavirus / COVID-19? No / Unsure 03/10/2022 12:59 PM EDT documented as of this encounter Miscellaneous Notes * Telephone Encounter - ADRIÁN Arceo - 03/10/2022 2:56 PM EDT Please see report from renal US. I called and spoke to her guardian she agrees to CT for further evaluation Rylie: Please schedule her for a CT without contrast. documented in this encounter Plan of Treatment Not on file documented as of this encounter Results * CT abdomen and pelvis without contrast (03/24/2022 10:04 AM EDT) Anatomical Region Laterality Modality Body, Abdomen, Body Covera N/A Compu elo Tomography 03/25/2022 2:30 PM EDT Narrative 03/25/2022 2:36 PM EDT CLINICAL INFORMATION: Abnormal ultrasound of both kidneys TECHNIQUE: CT Abdomen and Pelvis without intravenous contrast. All CT scans at this facility use dose modulation, iterative reconstruction, and/or weight based dosing when appropriate to reduce radiation dose to as low as reasonably achievable. COMPARISON: Renal ultrasound 03/10/2022, CT abdomen/pelvis 05/30/2015 FINDINGS: Visualized lung bases are unremarkable. Hepatic steatosis. No focal liver mass. The gallbladder, spleen, adrenal glands, and pancreas are unremarkable. There is a 1.8 cm left renal cyst. Partial duplication of the right kidney. Right renal angiomyolipoma measuring 0.9 cm. No collecting system dilatation or obstructing urinary tract stones. Punctate parenchymal calcifications in the upper pole of the left kidney. The bladder is unremarkable. The uterus is present. No enlarged abdominal or pelvic lymph nodes. Left ovarian cyst measuring 2.2 cm, unchanged. No free fluid in the abdomen or pelvis. No free intraperitoneal air. Normal appendix. The small and large bowel are of normal caliber with no evidence of bowel wall thickening. IMPRESSION: * No urinary tract stones or collecting system dilatation * Punctate parenchymal calcifications in the upper pole of the left kidney. * Right renal angiomyolipoma measuring 0.9 cm and left renal cyst measuring 1.8 cm. * Unchanged left ovarian cyst measuring 2.2 cm. Finalized by Marky Waller MD on 03/25/2022 2:36 PM Procedure Note Marky Waller MD - 03/25/2022 CLINICAL INFORMATION: Abnormal ultrasound of both kidneys TECHNIQUE: CT Abdomen and Pelvis without intravenous contrast. All CT scans at this facility use dose modulation, iterativereconstruction, and/or weight based dosing when appropriate to reduceradiation dose to as low as reasonably achievable. COMPARISON: Renal ultrasound 03/10/2022, CT abdomen/pelvis 05/30/2015 FINDINGS: Visualized lung bases are unremarkable. Hepatic steatosis. No focalliver mass. The gallbladder, spleen, adrenal glands, and pancreas areunremarkable. There is a 1.8 cm left renal cyst. Partial duplication ofthe right kidney. Right renal angiomyolipoma measuring 0.9 cm. Nocollecting system dilatation or obstructing urinary tract stones. Punctate parenchymalcalcifications in the upper pole of the left kidney. The bladder isunremarkable. The uterus is present. No enlarged abdominal or pelviclymph nodes. Left ovarian cyst measuring 2.2 cm, unchanged. No freefluid in the abdomen or pelvis. No free intraperitoneal air. Normal appendix. Thesmall and large bowel are of normal caliber with no evidence of bowel wallthickening. IMPRESSION: * No urinary tract stones or collecting system dilatation * Punctate parenchymal calcifications in the upper pole of the leftkidney. * Right renal angiomyolipoma measuring 0.9 cm and left renal cystmeasuring 1.8 cm. * Unchanged left ovarian cyst measuring 2.2 cm. Finalized by Marky Waller MD on 03/25/2022 2:36 PM us Heather SAMPSON IMG CT ORDERABLES Final Res ult documented in this encounter Visit Diagnoses Diagnosis Abnormal ultrasound of both kidneys- Primary Abnormal ultrasound of both kidneys documented in this encounter Care Teams Boiler Welder Relationship Specialty Start Date End Date Sandy Tejeda, PHOTONICS ENGINEER-SLOT TAG INSERTER [address] [facility] [address] [place] [id number] PCP - General Nurse Practitioner 10/18/24 documented as of this encounter
--- OUTSIDE RECORDS SUMMARY | 2025-02-04 14:58 | XMS_ITS | Clinical Summary ---
Author Organization [facility] Address [address], [address] [place] [address] Care Team Providers Care Care Transition Mgr Name Role Phone Marla Acevedo MD Primary Care Provider Social History Tobacco Use Types Packs/Day Years Used Date Smoking Tobacco: Never Assessed Comments Unknown Sex and Gender Information Value Date Recorded Sex Assigned at Female 02/04/2022 10:23 AM EDT Legal Sex Female 12:03 PM EST Gender Identity Female 02/04/2022 10:23 AM EDT Sexual Orientation Straight 02/04/2022 10 :23 AM EDT Plan of Treatment Health Maintenance Due Date Last Done Comments DTaP/Tdap/Td vaccine (1 - Tdap) 01/12/1975 COVID-19 Vaccine ( - 2023-2 5 season) 2024 Flu vaccine (#1) 02/15/2025 Respiratory Syncytial Virus (RSV) or age 60 yrs+ (1 - 1-dose 75+ series) 01/12/2031 Polio vaccine Aged Out No longer elig ible based on patient's age to complete this topic Care Teams Care Transition Mgr Relationship Specialty Start Date End Date Marla Acevedo MD [address] [place] [address] PCP - General Psychiatry 11/11/21
[2025-02-04 15:31] LABS: Glucose Urine UA NEGATIVE (NEGATIVE)
== END 2025-02-04 14:56 | disposition home or self-care (01) ==
LOC: LAB 14:55
PROVIDERS: PCP Nurse Practitioner Family; Visit Provider Nurse Practitioner Family
DX: R41.82 Altered mental status, unspecified (principal)
CPT/HCPCS: 81003

== ENCOUNTER 2025-04-09 17:17 | Outpatient (REF) | payer MEDICARE, MEDICAID, SELFPAY ==
--- OUTSIDE RECORDS SUMMARY | 2025-04-09 17:21 | XMS_ITS | Encounter Summary ---
Author Organization [employer] [facility] Address [id number] [address] [place] [address] Care Team Providers Care Quality Control Representative Name Role Phone Sandy Tejeda GOLF COURSE MANAGER-CORDUROY CUTTER OPERATOR Primary Care Provider [phone]- [phone] Encounter Details Date Type Department Care Team ([facility] st Contact Info) Description 08/18/2022 Abstract [facility] [address] [place] [id number] External, Scanning Provider Social History Tobacco Use [...] Diagnoses Not on filedocumented in this encounter Additional Health Concerns Infection Onset Date Last Indicated Resolved Time Meningitis Rule-Out 03/20/2025 03/22/2025 03/22/20 11:43 AM EDT documented as of this encounter Care Teams Quality Control Representative Relationship Specialty Start Date End Date Sandy Tejeda, GOLF COURSE MANAGER-CORDUROY CUTTER OPERATOR [address] [facility] [address] [place] [address] PCP - General Nurse Practitioner 10/18/24 documented as of this encounter
--- OUTSIDE RECORDS SUMMARY | 2025-04-09 17:21 | XMS_ITS | Clinical Summary ---
Author Organization [facility] Address [address] [place] [address] Care Team Providers Care Locomotive Pipe Fitter Name Role Phone Carmen Rosales MD Primary Care Provider [phone] Leida Morrison Unavailable Unavailable Allergies No known [...] N ot on file 06/24/2020 Data from: [email or web address] Last address used for calculation Not on [...] (2 of 2 - PCV) 05/07/2020 05/07/2019 Advance Directive Discussion 07/18/2024 Influenza Vaccine (#1) 2025 9, 03/21/2019, 05/13/2017, Additional history exists DTaP,Tdap,Td Vaccine (2 - Td or Tdap) 05/12/2026 05/12/2016 Diabetes Screening 06/26/2027 06/26/2024, 1 08/11/2023, 11/06/2021, Additional history exists Lipid Screening 07/02/2029 07/02/2024, 10/17, 09/19/2017 RSV Vaccine (1 - 1-dose 75+ series) 01/12/2031 Bone Density Screening Completed 08/08/2018 Procedures Procedure Name Priority Date/Time Associated Diagnosis Comments COMPREHENSIVE METABOLIC PANEL Routine 06/22/2019 9:14 AM EST Chronic pain of both knees Primary osteoarthritis of both knees from Last 3 Months or Most Recently Relevant to Health Maintenance Results * (ABNORMAL) COMP METABOLIC PANEL (06/22/2019 9:14 AM EST) Pathologist [facility] Protein, Total 7.8 6.3 - 8.0 g/dL 06/22/2019 11:48 AM EST [facility] Albumin 4.2 3.9 - 4.9 g/dL 06/22/2019 11:48 AM EST [facility] Calcium 9.4 8.5 - 10.2 mg/dL 06/22/2019 11:48 AM EST [facility] Bilirubin, Total 0.2 0.2 - 1.3 mg/dL 06/22/2019 11:[address] [facility] Alkaline Phosphatase 92 34 - 123 U/L 06/22/2019 11:48 AM EST [facility] AST 16 13 - 35 U/L 06/22/2019 11:[address] [facility] Glucose 102(H) 74 - 99 mg/dL 06/22/2019 11:[address] [facility] Comment: The [place] Diabetes Association (ADA) provides guidance for cutoff [...] Standards of Medical Care in Diabetes 2016, [place] Diabetes Association. Diabetes Care. 2016.39(Suppl 1). BUN 16 7 - 21 mg/dL 06/22/2019 11:48 AM EST [facility] Creatinine 0.60 0.58 - 0.96 mg/dL 06/22/2019 11:48 AM [facility] Sodium 143 136 - 144 mmol/L 06/22/2019 11:48 AM [facility] Potassium 4.5 3.7 - 5.1 mmol/L 06/22/2019 11:48 AM [facility] Chloride 104 97 - 105 mmol/L 06/22/2019 11:48 AM [facility] CO2 26 22 - 30 mmol/L 06/22/2019 11:48 AM [facility] Anion Gap 13 9 - 18 mmol/L 06/22/2019 11:48 AM [facility] ALT 7 7 - 38 U/L 06/22/2019 11:48 AM [facility] eGFR- >60 06/22/2019 11:48 AM [facility] eGFR-All Other Races >60 . 06/22/2019 11:48 AM [facility] Comment: eGFR (Estimated GFR) Units of [...] EST Daniel Lala DO LABORATORY Final Result [facility] [address] [place] [address] [facility] [address] [place] [address] from Last 3 Months or Most Recently Relevant to Health Maintenance Insurance [employer] Care Teams Locomotive Pipe Fitter Relationship Specialty Start Date End Date Carmen Rosales MD [address] [place] [address] PCP - General Family Medicine 02/14/18 Leida Morrison Referring 06/19/19
--- OUTSIDE RECORDS SUMMARY | 2025-04-09 17:21 | XMS_ITS | Continuity of Care Document ---
Author Organization [facility] Address [address] [place] [address] Care Team Providers Care Pinball Machine Repairer Name Role Phone Tim Andrews MD Attending Physician [phone] Medications Medication Frequency Instructions Diagnosis Start Date End Date Last Administered acetaminophen 325 mg tablet Every 4 Hours - PRN 2 tablets, oral, Every 4 Hours - PRN S32.019D : Unspecified fracture of first lumbar vertebra, subsequent encounter for fracture with routine healing 025 03/26/2025 07:45 PM acidophilus-pecti n, citrus 25 million cell -100 mg tablet Once A Day 1 tablet, oral, Once A Day, Health maintenance 025 03/31/2025 08:20 AM aspirin 81 mg tablet,delayed release (DR/EC) Once A Day 1 tablet, oral, Once A Day, Preventative 025 03/31/2025 08:20 AM atorvastatin 40 mg tablet At Bedtime 1 tablet, oral, At Bedtime E78.2 : Mixed hyperlipidemia 03/30/2025 07:43 PM bisacodyl 10 mg suppository Once A Day - PRN 1 supp, rectal, Once A Day - PRN K59.00 : Constipation, unspecified carbidopa-levodop a 25-100 mg tablet Three Times A Day 1 tablet, oral, Three Times A Day G20.A1 : Parkinson's disease without dyskinesia, without mention of fluctuations 03/31/2025 11:26 AM cholecalciferol (vitamin D3) 50 mcg (2,000 unit) tablet Once A Day 1 tablet, oral, Once A Day E55.9 : Vitamin D deficiency, unspecified 03/31/2025 08:20 AM clonazepam 0.5 mg tablet Twice A Day 1 tablet, oral, Twice A Day R25.1 : Tremor, unspecified 03/31/2025 08:20 AM divalproex 250 mg tablet,delayed release (DR/EC) Once A Day 1 tablet, oral, Once A Day, Take with 500mg dose to equal 750mg F31.9 : Bipolar disorder, unspecified 03/31/2025 08:20 AM divalproex 500 mg tablet,delayed release (DR/EC) Once A Day 1 tablet, oral, Once A Day, Take with 250mg to equal 750mg F31.9 : Bipolar disorder, unspecified 03/31/2025 08:20 AM divalproex 500 mg tablet,delayed release (DR/EC) At Bedtime 2 tablets, oral, At Bedtime F31.9 : Bipolar disorder, unspecified 03/30/2025 07:43 PM fentanyl 25 mcg/hr patch 72 hour Once A Day Every 3 Days one patch, transdermal, Once A Day Every 3 Days S32.019D : Unspecified fracture of first lumbar vertebra, subsequent encounter for fracture with routine healing furosemide 20 mg tablet Once A Day 1 tablet, oral, Once A Day I10 : Essential (primary) hypertension 03/31/2025 08:20 AM gabapentin 400 mg capsule Three Times A Day 1 capsule, oral, Three Times A Day R29.90 : Unspecified symptoms and signs involving the nervous system 03/31/2025 05:43 AM lamotrigine 200 mg tablet Once A Day 1 tablet, oral, Once A Day F31.9 : Bipolar disorder, unspecified 03/31/2025 08:20 AM latanoprost 0.005 % drops Once A Day 1 gtt both eyes, ophthalmic (eye), Once A Day H40.10X0 : Unspecified open-angle glaucoma, stage unspecified 03/30/2025 08:18 AM loperamide 2 mg capsule As Needed 1 tab, oral, As Needed, Give 1 tab as needed every 6 hours as needed for loose stools. Maalox Advanced (alum-mag hydroxide-simeth) 200-200-20 mg/5 mL suspension Every 6 Hours - PRN 30ml, oral, Every 6 Hours - PRN, Dyspepsia magnesium oxide 400 mg magnesium tablet Once A Day 400mg, oral, Once A Day R25.1 : Tremor, unspecified 03/31/2025 11:26 AM melatonin 10 mg tablet At Bedtime 1 tablet, oral, At Bedtime R45.1 : Restlessness and agitation 03/30/2025 07:43 PM Metamucil (psyllium husk) 3.4 gram/5.4 gram powder Once A Day 3.4 grams, oral, Once A Day K59.00 : Constipation, unspecified 03/31/2025 08:20 AM Miralax (polyethylene glycol 3350) 17 gram/dose powder Once A Day - PRN 17 grams, oral, Once A Day - PRN K59.00 : Constipation, unspecified mirtazapine 15 mg tablet At Bedtime 1 tablet, oral, At Bedtime F31.9 : Bipolar disorder, unspecified 03/30/2025 07:43 PM Multiple Vitamins (multivitamin) - tablet Once A Day 1 tablet, oral, Once A Day, savage maintenance 03/31/2025 08:20 AM naloxone 4 mg/actuation spray,non-aerosol Once A Day - PRN 1 spray into alt nostrils, nasal, Once A Day - PRN, opioid use primidone 50 mg tablet Once A Day 4 tablets, oral, Once A Day, Take 4 tablets to equal 200mg F31.9 : Bipolar disorder, unspecified 03/31/2025 08:20 AM primidone 50 mg tablet Once A Day 5 tablets, oral, Once A Day, Administer 5 tablets at HS to equal 250mg total F31.9 : Bipolar disorder, unspecified 03/30/2025 07:43 PM psyllium husk (bulk) 100 % powder Once A Day 1 3.4 g packet, miscellaneous, Once A Day K59.00 : Constipation, unspecified 03/31/2025 08:20 AM Saline Nasal (sodium chloride) 0.65 % aerosol,spray Every 2 Hours - PRN 2 sprays each nostril, nasal, Every 2 Hours - PRN, dryness of the nose sennosides-docusa te sodium 8.6-50 mg tablet Twice A Day - PRN 1 tablet, oral, Twice A Day - PRN K59.00 : Constipation, unspecified timolol 0.5 % drops Once A Day 1 gtt in both eyes, ophthalmic (eye), Once A Day H40.10X0 : Unspecified open-angle glaucoma, stage unspecified 03/31/2025 08:20 AM tizanidine 2 mg tablet Every 8 Hours - PRN 1 tablet, oral, Every 8 Hours - PRN S32.019D : Unspecified fracture of first lumbar vertebra, subsequent encounter for fracture with routine healing tramadol 50 mg tablet Every 6 Hours - PRN 1 tablet, oral, Every 6 Hours - PRN S32.019D : Unspecified fracture of first lumbar vertebra, subsequent encounter for fracture with routine healing 03/31/2025 02:19 AM diphenhydramine HCl 50 mg capsule Every 6 Hours 1 capsule, oral, Every 6 Hours R45.1 : Restlessness and agitation 202403/23/2025 12:03 AM diphenhydramine HCl 50 mg capsule Every 6 Hours - PRN 1 capsule, oral, Every 6 Hours - PRN R45.1 : Restlessness and agitation 2024 haloperidol 5 mg tablet Every 6 Hours - PRN 1 tablet, oral, Every 6 Hours - PRN R45.1 : Restlessness and agitation 2024 magnesium 200 mg tablet Once A Day 2, oral, Once A Day, Health supplement 2024 naloxone 4 mg/actuation spray,non-aerosol Once A Day - PRN 1 spray into alt nostrils, nasal, Once A Day - PRN 2024 primidone 250 mg tablet At Bedtime 1 tablet, oral, At Bedtime R25.1 : Tremor, unspecified 2024 primidone 50 mg tablet At Bedtime 5 tablets, oral, At Bedtime, Administer 5 tablets at HS to equal 250mg total 2024 Problems Code Type Problem ICD Code Effective Date Status ICD-10 Unspecified fracture of first lumbar vertebra, subsequent encounter for fracture with routine healing S32.019D 03/15/2025 Active ICD-10 Parkinson's disease without dyskinesia, without mention of fluctuations G20.A1 03/15/2025 Active ICD-10 Dysphagia, unspecified R13.10 03/15/2025 Ac tive ICD-10 Primary hyperparathyroidism E21.0 03/15/20 25 Active ICD-10 Obstructive sleep apnea (adult) (pediatric) G47 .33 03/15/2025 Active ICD-10 Vitamin D deficiency, unspecified E55.9 Active ICD-10 Essential (primary) hypertension I10 Active ICD-10 Bipolar disorder, unspecified F31.9 2024 Active ICD-10 Tremor, unspecified R25.1 03/15/2025 Activ e ICD-10 Mixed hyperlipidemia E78.2 03/15/2025 Acti ve ICD-10 Unspecified symptoms and signs involving the nervous system R29.90 03/15/2025 Active ICD-10 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 6 03/23/2025 Active ICD-10 Nutritional deficiency, unspecified E63.9 03/26/2025 Active ICD-10 Other speech disturbances R47.89 03/25/2025 Active Current Allergies and Intolerances Category Substance Type Reaction Severity Begin Date Status Drug allergy Percocet Allergy 03/22/2025 Active Vital Signs Height: 65.0 in Date / Time Temperature Pulse (per minute) Respirations (per minute) Systolic BP (mmHg) Diastolic BP (mmHg) O2 Saturation (%) Weight BMI 2024 11:05 AM 98.2 F 79 16 126 63 95.0 2024 11:17 AM 97.8 F 69 16 110 54 95.0 2024 10:52 AM 97.8 F 69 16 110 54 95.0 2024 08:33 AM 98.5 F 86 18 131 79 96.0 2024 12:13 PM 97.8 F 85 18 120 61 96.0 2024 10:46 AM 98.1 F 78 16 130 62 97.0 2024 09:17 AM 98.0 F 82 16 135 66 97.0 2024 02:35 AM 165.5 lbs 27.5 4 2024 12:02 PM 97.8 F 69 16 110 54 95.0 2024 10:45 AM 97.8 F 69 16 110 54 95.0 2024 11:31 PM 97.0 2024 11:30 PM 98.0 F 82 18 132 70 2024 06:21 PM 167.5 lbs 27.8 7 Advance Directives Directive Note Full Code Insurance Providers Payer Policy type Group Name Group number Policy ID Address Phone Medicare A Medicare Part A [id number] P pete: Fax: Private Insurance Levels - [employer] [id number] [address] [place] [address] Fax: Insurance Part B - [employer] Like Medicare Part B [id number] [address] [place] [address] Fax: Vaccinations - [employer] Medicare Part B [id number] [address] [place] [address] Fax: Managed Coins Medicaid [place]) [id number] Default, [address] [place] [address] Phone: Fax: Resident Resource Private Phone: Fax: Private Pay Private Phone: Fax: Immunizations Vaccine Site Safety Manager Date Status Dose Series Complete Pneumococcal Vaccine 05/07/2019 Completed Tetanus Vaccine 05/12/2016 Completed Procedures Not available for this record Results Name Date Time Positive/Negative Value Unit Range TB test 03/22/2025 22:00 Negative 0.0 mm Goals Goal Date The resident will be free from complicat ions r/t med use. 06/22/2025 Resident will have BM at least every 3 d ays until next review 06/22/2025 The resident will be free fr om s/s of complications of cardiac problems through the review date. 06/22/2025 Resident will be free from a dverse reactions from use of blood-thinning medication through review date 06/22/2025 Resident's code status decision will be honored daily through next review 06/22/2025 Resident will maintain psych osocial well being in half-way setting AEB: resident will accept care daily, positive expressions, positive body language thru next review 06/22/2025 Resident will have proper nu trition and hydration/ will be free of pain or bleeding in the oral cavity through next review 06/22/2025 Resident will not have an in terruption in normal activities d/t pain through the next review 06/22/2025 The resident will remain derrek e of further s/sx, discomfort or complications related to Parkinson's disease through review date 06/22/2025 Resident will see (printed m aterial, television, self-care items, faces, etc.)./Resident will not have unrecognized declines in visual impairment. 06/22/2025 Resident's mobility status will return t o pre-fracture status. 06/22/2025 Resident will not exhibit complications . 06/22/2025 Resident will not exhibit si gns of side effects of complications secondary to diuretic use. 06/22/2025 Resident will state feeling rested. 12/2024 Resident will not exhibit si gns of drug related: sedation, hypotension, or anticholinergic symptoms. 06/22/2025 Resident's skin will remain intact. 12/2024 Resident will remain free from injury. 1 08/23/2024 Resident needs will be met w [facility] staff assistance as needed. Res will improve in transfers and dressing. 06/24/2025 Resident will maintain with continent ep isodes daily thru next review 06/24/2025 Promote/encourage independence and resid ent safety at meals 06/29/2025 2. Will be free of s/s dehyd ration, fluid overload, electrolyte imbalance through next review 06/29/2025 1. Will be free of significa nt weight changes q month 5% +/- per nursing/grand rounds, weight reports 06/29/2025 Encounters Admission Date Discharge Date Description MRN Visit Count 03/22/2025 17:45 LTPAC Admission [id number] 01
--- OUTSIDE RECORDS SUMMARY | 2025-04-09 17:21 | XMS_ITS | Encounter Summary ---
Author Organization [facility] Healthcare Address [address] [place] [address] Care Team Providers Care Tour Actor Name Role Phone Carmen Rosales MD Primary Care Provider [phone] Jelena Caldwell CLOTH WEAVER Unavailable [phone] Unallocated, Campbell Provider Primary Care Provi epi Reason for Visit * Reason Comments Med Refill Encounter Details Date Type Department Care Team ([facility] Contact Info) Description 06/03/2023 Refill [facility] Family Medicine [address] [place] [phone] Verónica Choi NP [address] [place], [place] [id number] Essential hypertension (Primary Dx) Social History Tobacco Use Types Packs/Day Years Used Date Smoking Tobacco: Never Smokeless Tobacco: Never Alcohol Use Standard Drinks/Week Comments Not Currently 0 (1 standard drink = 0.6 oz pur e alcohol) Comments Unknown Sex and Gender Information Value Date Recorded Sex Assigned at Not on file Legal Sex Female 7:25 PM EDT Gender Identity Not on file Sexual Orientation Not on file documented as of this encounter Miscellaneous Notes * Telephone Encounter - Maribel Gee NP - 06/03/2023 2:42 PM EST Due for wellness with labs, please schedule documented in this encounter Plan of Treatment Not on file documented as of this encounter Visit Diagnoses Diagnosis Essential hypertension- Primary Unspecified essential hypertension documented in this encounter Care Teams Tour Actor Relationship Specialty Start Date End Date Carmen Rosales MD [address] [place], [place] [phone] PCP - General Family Medicine 01/06/23 06/06/24 Unallocated, Noms Provider, [address] [place] [address] PCP - General Family Medicine 06/07/24 Jelena Caldwell LSW [address] [place] [address] Forest Fire Prevention Manager Family Medicine 10/05/23 03/01/24 documented as of this encounter
--- OUTSIDE RECORDS SUMMARY | 2025-04-09 17:21 | XMS_ITS | Encounter Summary ---
Author Organization [facility] Address [id number] [address] [place] [address] Care Team Providers Care Overlock Operator Name Role Phone Sandy Tejeda TRANSPORTATION MECHANIC-MOLDED GOODS EMBOSSING PRESS OPERATOR Primary Care Provider [phone] Encounter Details Date Type Department Care Team ([facility] st Contact Info) Description 03/10/2025 Results Follow-Up [facility] - Emergency [address] [place] [phone] Mandy Wilson, SUNNY Urine Culture Urine, Clean Catch Midstream Social History Tobacco Use Types Packs/Day Years Used Date Smoking Tobacco: Former Cigarettes 1 20 Smokeless Tobacco: Never Comments:quit in early s Alcohol Use Standard Drinks/Week Comments No 0 (1 standard drink = 0.6 oz pur e alcohol) [facility] Utilities Answer Date Recorded In the past 12 months has e electric, gas, oil, or water company threatened to shut off services in your home? No 03/12/2025 PRAPARE - Transportation Answer Date Re corded In the past 12 months, has l ack of transportation kept you from medical appointments or from getting medications? No 02/16 In the past 12 months, has l ack of transportation kept you from meetings, work, or from getting things needed for daily living? No 03/12/2025 Housing Instability Answer Date Recorde d Are you worried or concerned that in the next two months you may not have stable housing that you own, rent or stay in as a part of a household? No 03/12/2025 Childcare Answer Date Recorded Childcare Unknown 12/27/2018 Employment Answer Date Recorded Employment Unknown 12/27/2018 Hunger Screening Answer Date Recorded Within the past 12 months we worried whether our food would run out before we got money to buy more. Never True 03/12/2025 Within the past 12 months th e food we bought just didn't last and we didn't have money to get more. Never True 03/12/2025 Purpose - Life Answer Date Recorded Purpose and direction in life Unknown Comments No Sex and Gender Information Value Date Recorded Sex Assigned at Female 08/08/2018 11:46 PM EST Legal Sex Female 11:59 AM EDT Gender Identity Female 08/08/2018 11:46 PM EST Sexual Orientation Straight 08/08/2018 11 :46 PM EST documented as of this encounter Functional Status documented as of this encounter Mental Status * Question Answer Entry Date Author Overall Cognitive Status WFL 03/13/2025 1:44 PM EDT Duane Fischer OTR/L * Question Answer Entry Date Author Overall Cognitive Status X 03/13/2025 9:45 AM EDT Emmy Gray, MIKY-NURSERY ATTENDANT documented in this encounter Plan of Treatment Not on file documented as of this encounter Goals Goal Patient Goal Type Associated Problems Recent Progress Patient-Stated? Author return to [facility] per patient; await Guardian confirmation General Yes Christa Das, TEA Note: Evaluation of progress towards goal: echo today, ST evaluation; pt was up in chair documented as of this encounter Visit Diagnoses Not on filedocumented in this encounter Additional Health Concerns Infection Onset Date Last Indicated Resolved Time Meningitis Rule-Out 03/20/2025 03/22/2025 03/22/20 11:43 AM EDT documented as of this encounter Care Teams Overlock Operator Relationship Specialty Start Date End Date Sandy Tejeda, TRANSPORTATION MECHANIC-MOLDED GOODS EMBOSSING PRESS OPERATOR [address] [facility] [address] [place] [address] PCP - General Nurse Practitioner 10/18/24 documented as of this encounter
--- OUTSIDE RECORDS SUMMARY | 2025-04-09 17:21 | XMS_ITS | Encounter Summary ---
[facility] Address [id number] [address] [place] [address] Care Team Providers Care Natural History Collections Curator Name Role Phone Sandy Tejeda MIXED SIGNAL DESIGN ENGINEER-ANIMAL CONTROL OFFICER Primary Care Provider [phone] Encounter Details Date Type Department Care Team ([facility] st Contact Info) Description 03/25/2025 Telephone [facility], A Department of [facility] [address] [facility] [address] [place] [address] Manuela Martin Social History Tobacco Use Types Packs/Day Years Used Date Smoking Tobacco: Former Cigarettes 1 20 Smokeless Tobacco: Never Comments:quit in early Alcohol Use Standard Drinks/Week Comments No 0 (1 standard drink = 0.6 oz pur e alcohol) [facility] Utilities Answer Date Recorded In the [...] PM EST documented as of this encounter Miscellaneous Notes * Telephone Encounter - Manuela Martin - 03/25/2025 9:24 AM EDT What is the reason for the call? Hospital follow up If appointment requested, what is the reason for the appointment? Stroke like symptoms Is there a referral in the chart? Ed visit 03/09/25- Were they seen in the hospital? What hospital were they seen at? Yes, [facility] What is a good call back number? Please call Trevor or ask for nurse station [phone] * Telephone Encounter - Lindsey Betts RN - 03/25/2025 9:[address] Castle to provide follow up recommendations. Can likely follow up with her [facility], established neurologist. * Telephone Encounter - Claire Angulo - 03/25/2025 9:24 AM EDT 1st attempt: Water Conservationist contacted patient and offered to schedule a hospital follow up appointment as we have received a provider message requesting to see patient in office. Water Conservationist contacted [phone]. Same number is listed for Naima in the patients chart. Naima claimed she does not know a Delmis. Unable to schedule. * Telephone Encounter - Geovani Castle MD - 03/25/2025 9:24 AM EDT Stroke team wanted general Neurology to evaluate the patient, I saw the patient on the consult service. Stroke team signed off. She can follow up with primary neurologist if there is none she can follow up with resident Clinic as per earliest availability of any of the restless * Telephone Encounter - Claire Angulo - 03/25/2025 9:24 AM EDT 2nd attempt: Water Conservationist contacted primary number in the patients chart. CallerNaima states that she is no longer the patient guardian and would like her number removed from the chart. She stated she will have the patients family contact the office to schedule. documented in this encounter Plan of Treatment Not on file documented as of this encounter Goals Goal Patient Goal Type Associated Problems Recent Progress Patient-Stated? Author return to [facility] per patient; await Guardian confirmation General Yes Christa Das LSW Note: Evaluation of progress towards goal: echo today, ST evaluation; pt was up in chair documented as of this encounter Visit Diagnoses Not on filedocumented in this encounter Care Teams Natural History Collections Curator Relationship Specialty Start Date End Date Sandy Tejeda, MIXED SIGNAL DESIGN ENGINEER-ANIMAL CONTROL OFFICER [address] [facility] [address] [place] [address] PCP - General Nurse Practitioner 10/18/24 documented as of this encounter
--- OUTSIDE RECORDS SUMMARY | 2025-04-09 17:21 | XMS_ITS | Encounter Summary ---
Author Organization [facility] Address [id number] [address] [place] [address] Care Team Providers Care Snuff Box Finisher Name Role Phone Sandy Tejeda POLICE LIEUTENANT-SOLE TACKER Primary Care Provider [phone] Reason for Referral * Diagnostic Imaging (Routine) - Closed Specialty Diagnoses / Procedures Referred By Haider egan Referred To Contact Radiology Diagnoses Abnormal ultrasound of both kidneys Procedures CT abdomen and pelvis without contrast Heather Gregorio PA [facility] [place] [address] Phone: tel: fax: [place] [id number] [place] [address] Phone: tel: Referral ID Status Reason Start Date Expiration Date Visits Re quested Visits Authorized [id number] Closed 03/10/2022 03/10/2023 1 1 Encounter Details Date Type Department Care Team ([facility] st Contact Info) Description 03/10/2022 Telephone [facility] [address] [place] [address] Heather Gregorio PA [address] [place] [id number] Social History Tobacco Use Types Packs/Day [...] of both kidneys documented in this encounter Additional Health Concerns Infection Onset Date Last Indicated Resolved Time Meningitis Rule-Out 03/20/2025 03/22/2025 03/22/20 11:43 AM EDT documented as of this encounter Care Teams Snuff Box Finisher Relationship Specialty Start Date End Date Sandy Tejeda, POLICE LIEUTENANT-SOLE TACKER [address] [id number] PCP - General Nurse Practitioner 10/18/24 documented as of this encounter
--- OUTSIDE RECORDS SUMMARY | 2025-04-09 17:21 | XMS_ITS | Encounter Summary ---
Author Organization [facility] Address [id number] [address] [place] [address] Care Team Providers Care Classroom Aide Name Role Phone Sandy Tejeda TELEPHONE MAINTAINER-TALENT ACQUISITION SPECIALIST Primary Care Provider [phone] Encounter Details Date Type Department Care Team ([facility] st Contact Info) Description 03/25/2022 Telephone [facility] [address] [place] [phone] Heather Gregorio PA [address] [place], [place] [id number] Social History Tobacco Use Types Packs/Day Years [...] and an appointment with Dr. Murray in [place] for the results documented in this encounter Plan of Treatment Not on file documented as of this encounter Visit Diagnoses Diagnosis Angiomyolipoma- Primary documented in this encounter Additional Health Concerns Infection Onset Date Last Indicated Resolved Time Meningitis Rule-Out 03/20/2025 03/22/2025 03/22/20 11:43 AM EDT documented as of this encounter Care Teams Classroom Aide Relationship Specialty Start Date End Date Sandy Tejeda, TELEPHONE MAINTAINER-TALENT ACQUISITION SPECIALIST [address] [facility] [address] [place] [address] PCP - General Nurse Practitioner 10/18/24 documented as of this encounter
--- OUTSIDE RECORDS SUMMARY | 2025-04-09 17:21 | XMS_ITS | Encounter Summary ---
Author Organization [facility] Healthcare Address [address] [place] [address] Care Team Providers Care Senior Sales Associate Name Role Phone Carmen Rosales MD Primary Care Provider Jelena Caldwell STRIP POLISHER Unavailable [phone] Unallocated, Campbell Tamez MD Primary Care Provi epi Encounter Details Date Type Department [facility] Team ([facility] Contact Info[facility] Description 04/25/2023 Abstract [facility] Family Medicine [address] [place] [phone] Carmen Rosales MD [address] [place] [address] Social History Tobacco Use Types Packs/Day Years [...] on file documented as of this encounter Plan of Treatment Not on file documented as of this encounter Visit Diagnoses Not on filedocumented in this encounter Care Teams Senior Sales Associate Relationship Specialty Start Date End Date Carmen Rosales MD [address] [place] [address] PCP - General Family Medicine 01/06/23 06/06/24 Unallocated, Campbell Tamez MD [address] [place] [address] PCP - General Family Medicine 06/07/24 Jelena Caldwell, TEA [address] [place] [address] Automobile Lights Assembler Family Medicine 10/05/23 03/01/24 documented as of this encounter
--- OUTSIDE RECORDS SUMMARY | 2025-04-09 17:22 | XMS_ITS | Encounter Summary ---
Author Organization [facility] Address [address] [facility] [place] [address] Care Team Providers Care Lamp Shades Supervisor Name Role Phone Unallocated, Noms Provider [facility] Encounter Details Date Type Department Care Team ([facility] Contact Info) Description 07/05/2024 Abstract JASWANT Mcgowan [facility] [address] [facility] [address] [place] [phone] Unallocated, Noms ProviderMD [address] [place] [address] Social History Tobacco Use Types Packs/Day Years [...] on filedocumented in this encounter Care Teams Lamp Shades Supervisor Relationship Specialty Start Date End Date Unallocated, Jaswant Tamez MD [address] [place] [address] PCP - General Family Medicine 06/07/24 documented as of this encounter
--- OUTSIDE RECORDS SUMMARY | 2025-04-09 17:22 | XMS_ITS | Encounter Summary ---
Author Organization [facility] Address [address] [place] [address] Care Team Providers Care Radiological Technologist Name Role Phone Unallocated, Noms Provider Primary Care [facility] epi Encounter Details Date Type Department Care Team ([facility] st Contact Info) Description 03/19/2025 Abstract [facility] DEPARTMENT [address] [place] [phone] Unallocated, [place] [address] Social History Tobacco Use Types Packs/Day Years [...] on filedocumented in this encounter Care Teams Radiological Technologist Relationship Specialty Start Date End Date Unallocated, Jaswant Tamez MD [address] [place] [address] PCP - General Family Medicine 06/07/24 documented as of this encounter
--- OUTSIDE RECORDS SUMMARY | 2025-04-09 17:22 | XMS_ITS | Encounter Summary ---
Author Organization [facility] Address [address] [place] [address] Care Team Providers Care Lodging Facilities Manager Name Role Phone Unallocated, Noms Provider Primary Care Provi epi Encounter Details Date Type Department Care Team ([facility] Contact Info) Description 03/10/2025 [facility] [address] [facility] [address] [place] [phone] Sandy Tejeda, RESTAURANT HOSPITALITY MANAGER [address] [facility] [address] [place] [address] ALL URINALYSIS Social History Tobacco Use Types Packs/Day Years [...] on filedocumented in this encounter Care Teams Lodging Facilities Manager Relationship Specialty Start Date End Date Unallocated, Noms Provider, [place] [address] PCP - General Family Medicine 06/07/24 documented as of this encounter
--- OUTSIDE RECORDS SUMMARY | 2025-04-09 17:22 | XMS_ITS | Encounter Summary ---
Author Organization [facility] Address [address] [place] [address] Care Team Providers Care Set Illustrator Name Role Phone Unallocated, Noms Provider Primary Care [facility] epi Reason for Visit * Reason Comments Med Refill Encounter Details Date Type Department Care Team ([facility] Contact Info) Description 04/01/2025 Refill JASWANT Mcgowan [facility] [address] [facility] [address] [place] [phone] Sandy Tejeda, LINUX ADMIN [address] [facility] [address] [place] [address] Anxiety about health Social History Tobacco Use Types Packs/Day Years [...] as of this encounter Visit Diagnoses Diagnosis Anxiety about health documented in this encounter Care Teams Set Illustrator Relationship Specialty Start Date End Date Unallocated, Noms Provider, [place] [address] PCP - General Family Medicine 06/07/24 documented as of this encounter
--- OUTSIDE RECORDS SUMMARY | 2025-04-09 17:22 | XMS_ITS | Clinical Summary ---
Author Organization [facility] Address [address] [place] [address] Care Team Providers Care Manager Instrumentation Name Role Phone Unallocated, Noms Provider Primary Care Provi epi Allergies Active Allergy Reactions Criticality Noted Date Comments Oxycodone-Acetaminophen Nausea Only 02/24/2022 Medications aspirin 81 MG chewable tablet Chew 81 mg 1 (one) time. Active divalproex (Depakote ER) 500 MG 24 hr tablet Take 500 mg by mouth in the morning. Active Multiple Vitamins-Minerals (Multivitamin Adults 50+) tablet Orally A ctive latanoprost (Xalatan) 0.005 % ophthalmic solution Administer 1 drop into both eyes Daily 4 Active lamoTRIgine (LaMICtal) 200 MG tablet Take 200 mg by mouth in the morning and 200 mg before bedtime. 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 60 tablet 4 Active ergocalciferol (Vitamin D2) 1.25 MG (69723 UT) capsuleIndications :Vitamin D deficiency Take 1 capsule (1.25 mg) by mouth 1 (one) time per week 4 capsule 11 4 025 Active carbidopa-levodopa (Sinemet) 10-100 MG tabletIndications: Tremor Take 1 tablet by mouth in the morning and 1 tablet in the evening and 1 tablet before bedtime. 90 tablet 2 5 Active carbidopa-levodopa (Sinemet) 25-100 MG tabletIndications: Parkinsonism, unspecified Parkinsonism type (HCC) TAKE 1 TABLET BY MOUTH 3 TIMES A DAY 90 tablet 4 5 Active primidone (Mysoline) 50 MG tabletIndications: Tremor TAKE 3 TABLETS AT BEDTIME 270 tablet 1 5 Active clonazePAM (KlonoPIN) 0.5 MG tabletIndications: Anxiety about health Take 1 tablet (0.5 mg) by mouth in the morning and 1 tablet (0.5 mg) before bedtime. 60 tablet 3 5 026 Active Active Problems Patient Care Coordination No te Formatting of this note migh t be different from the original. 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 We will recheck in 1 year with an ultrasound Recurrent UTI 02/24/2022 Overview (01/06/2023): ==== 05/31/2022 ==== ### cystoscopy negative for cystitis. Retrograde pyelogram no filling defects or obstruction. Some increased ability of bladder but eventually cleared. U of M solution placed as well. ====03/25/22====US showed concerned for renal calcifications. She agreed to CT for further characterization which was negative for renal stones. ====02/24/22====We will check renal/bladder US with PVR and schedule cystoscopy/possible BRPG/U of M instillation. Last Assessment & Plan: No interval UTI since last visit. Urinary frequency 02/24/2022 Overview (01/06/2023): ====02/24/22==== longstanding urinary frequency and urgency. Recent abdominal cramping. We will try her on Myrbetriq 25 mg. Last Assessment & Plan: She will call if she wants me to place an order to her pharmacy or if she wants to try the higher dose. 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 07/23/2016 Cyst of ovary 11/29/2015 Essential hypertension 11/29/2015 Hyperparathyroidism 11/29/2015 Localized edema 11/29/2015 Obstructive sleep apnea syndrome 11/29/2015 Primary malignant neoplasm 11/29/2015 Resolved Problems Problem Noted Date Diagnosed Date Resolved Date Parkinson's disease 08/22/2019 10/10/19 24 Encounters Date Type Department Care Team Description 04/01/2025 Refill [facility] [address] [facility] [address] [place] [phone] Sandy Tejeda, ESCROW CLERK Anxiety about health 03/26/2025 Abstract [facility] [address] [place] [address] Unallocated, Noms Provider, 03/24/2025 Telephone [facility] [address] [facility] [address] [place] [phone] Sandy Tejeda, ESCROW CLERK 03/19/2025 Abstract [facility] [address] [place] [address], [place] [phone] Unallocated, Noms ProviderMD 03/19/2025 Abstract [facility] [address] [place] [phone] Unallocated, Noms ProviderMD 03/10/2025 Results Follow-Up [facility] [address] [facility] [address] [place] [phone] Sandy Tejeda, ESCROW CLERK ALL URINALYSIS 03/10/2025 Results Follow-Up [facility] [address] [facility] [address] [place] [phone] Sandy Tejeda, ESCROW CLERK ALL CBC WITH AUTO DIFF, [facility] CMP (CMP) (FOR REMOTE [facility] USE), ALL MAGNESIUM, TBH DEPAKENE/ VALPROIC ACID 02/04/2025 Clinisync Result Encounter [facility] External Department Unsolicited Sandy Tejeda, MARIFER 02/01/2025 Clinisync Result Encounter [facility] External Department Unsolicited Sandy Tejeda, ESCROW CLERK from Last 3 Months Immunizations Immunization Administration Dates Next Due Influenza, injectable, quadrivalent 05/07/2019 Influenza, injectable, quadrivalent, preservativ e free 05/13/2017,05/12/2016 Influenza, seasonal, intradermal, preservative f ree 03/21/2019 Pneumococcal Polysaccharide PPSV23 05/07/2019 Tdap 05/12/2016 Family History Medical History Relation Name Comments Hypertension Father Cancer Mother liver, lung Relation Name Status Comments Father (Age 92) Mother (Age 87) Social History Tobacco Use Types Packs/Day Years Used Date Smoking Tobacco: Never Smokeless Tobacco: Never Tobacco Cessation:Counseling Given: Not Answered Alcohol Use Standard Drinks/Week Comments Not Currently 0 (1 standard drink = 0.6 oz pur e alcohol) Comments Unknown Sex and Gender Information Value Date Recorded Sex Assigned at Not on file Legal Sex Female 7:25 PM EDT Gender Identity Not on file Sexual Orientation Not on file Last Filed Vital Signs Vital Sign Reading Time Taken Comments Blood Pressure 138/82 09/26/2024 1:38 PM EDT Pulse 73 08/07/2024 2:22 PM EST Temperature 35.8 C (96.4 F) 10/06/2023 6:26 PM EDT Respiratory Rate 16 08/07/2024 2:22 PM EST Oxygen Saturation 93% 08/07/2024 2:22 PM EST Inhaled Oxygen Concentration - - Weight 81.6 kg (180 lb) 09/26/2024 1:38 PM EDT Height 167.6 cm (5' 6 ) 09/26/2024 1:38 PM EDT Body Mass Index 29.05 09/26/2024 1:38 PM EDT Plan of Treatment Health Maintenance Due Date Last Done Comments CT Colonography 1956 FIT-DNA 1956 FIT 1956 FOBT 1955 Sigmoidoscopy 1955 Skin Cancer Screening 01/12/1957 Mammogram 12/09/2016 12/10/2015 Pneumococcal Vaccine: 65+ Ye ars (2 of 2 - PCV) 05/07/2020 05/07/2019 Influenza Vaccine (#1) 2025 9, 03/21/2019, 06/26/2018, Additional history exists Colonoscopy 04/30/2031 04/30/2021, 04/17, 04/30/2021, Additional history exists Colorectal Cancer Screening 04/30/2031 Procedures Procedure Name Priority Date/Time Associated Diagnosis Comments ALL URINALYSIS Routine 02/04/2025 12:04 PM EDT TBH DEPAKENE/ VALPROIC ACID Routine 02/01/2025 4:40 PM EDT ALL MAGNESIUM Routine 02/01/2025 4:40 PM EDT [facility] CMP (CMP) (FOR REMOTE [facility] USE) Routine 02/01/2025 4:40 PM EDT ALL CBC WITH AUTO DIFF Routine 02/01/2025 4:40 PM EDT COLONOSCOPY Routine 04/30/2021 12:00 PM EDT from Last 3 Months or Most Recently Relevant to Health Maintenance Results * (ABNORMAL) ALL URINALYSIS (02/04/2025 12:04 PM EDT) COLOR URINE LT. YELLOW YELLOW TBH CLARITY URINE CLEAR CLEAR TBH SPECIFIC GRAVITY URINE 1.010 1.005 - 1.025 TBH PH URINE 7.0 5.0 - 9.0 TBH PROTEIN URINE NEGATIVE NEG/TRACE mg/dL TBH GLUCOSE URINE UA NEGATIVE NEGATIVE mg/dL TBH BILIRUBIN URINE NEGATIVE NEGATIVE TBH KETONES URINE NEGATIVE NEGATIVE mg/dL TBH BLOOD URINE NEGATIVE NEGATIVE TBH NITRITE URINE NEGATIVE NEGATIVE TBH UROBILINOGEN URINE 0.2 0.2 - 1.0 EU/dL TBH LEUKOCYTE ESTERASE URINE TRACE(A) NEGATIVE TBH 02/04/2025 12:0 4 PM EDT 02/04/2025 3:03 PM EDT Narrative CLINISYNC - 02/04/2025 3:33 PM EDT Sandy Tejeda ESCROW CLERK CLINISYNC Final Result CLINISYNC TBH * TBH DEPAKENE/ VALPROIC ACID (02/01/2025 4:40 PM EDT) Pathologist [facility] TB VALPROIC ACID 50.0 50.0 - 100.0 ug/mL TBH 02/01/2025 4:40 PM EDT 02/01/2025 5:33 PM EDT Narrative CLINISYNC - 02/01/2025 5:54 PM EDT us Sandy Tejeda NP CLINISYNC Final Result CLINISYNC TB * (ABNORMAL) [facility] CMP (CMP) (FOR REMOTE [facility] USE) (02/01/2025 4:40 PM EDT) SODIUM 144 136 - 145 mmol/L TBH POTASSIUM 4.6 3.5 - 5.1 mmol/L TBH CHLORIDE 105 98 - 107 mmol/L TBH CARBON DIOXIDE 34.0(H) 21.0 - 32.0 mmol/L TBH ANION GAP 9.6 TBH GLUCOSE 77 74 - 106 mg/dL TBH BLOOD UREA NITROGEN 15.0 7.0 - 18.0 mg/dL TBH CREATININE 0.57 0.55 - 1.02 mg/dL TBH TBH EGFR-AF BELARUSIAN >60 >=60 mL/min/1. 73m 2 TBH TBH EGFR-NON AF BELARUSIAN >60 >=60 mL/min/1. 73m 2 TBH BUN CREATININE RATIO 26.3 TBH CALCIUM 9.1 8.5 - 10.1 mg/dL TBH BILIRUBIN TOTAL 0.2 0.2 - 1.0 mg/dL TBH ASPARTATE AMINO TRANSFERASE 22 15 - 37 U/L TBH ALANINE AMINOTRANSFERASE 16 14 - 59 U/L TBH ALKALINE PHOSPHATASE 174(H) 46 - 116 U/L TBH TOTAL PROTEIN 7.6 6.4 - 8.2 g/dL TBH ALBUMIN LEVEL 3.0(L) 3.4 - 5.0 g/dL TBH GLOBULIN 4.6 g/dL TBH ALBUMIN GLOBULIN RATIO 0.7 TBH 02/01/2025 4:40 PM EDT 02/01/2025 5:33 PM EDT Narrative CLINISYNC - 02/01/2025 5:54 PM EDT us Sandy Tejeda ESCROW CLERK CLINISYNC Final Result CLINISYNC TBH * ALL MAGNESIUM (02/01/2025 4:40 PM EDT) MAGNESIUM 2.0 1.8 - 2.4 mg/dL TBH 02/01/2025 4:40 PM EDT 02/01/2025 5:33 PM EDT Narrative CLINISYNC - 02/01/2025 5:54 PM EDT Sandy Tejeda ESCROW CLERK CLINISYNC Final Result CLINISYNC TB * (ABNORMAL) ALL CBC WITH AUTO DIFF (02/01/2025 4:40 PM EDT) [facility] TB WBC 10.5 4.0 - 11.0 10 3/uL TBH TBH RBC 4.41 4.20 - 5.40 10 6/uL TBH TBH HGB 14.3 12.0 - 16.0 g/dL TBH TBH HCT 44.9 36.0 - 48.0 % TBH TBH MCV 101.8(H) 81.0 - 99.0 fL TBH TBH MCH 32.4 26.7 - 34.0 pg TBH TBH MCHC 31.8 29.9 - 35.2 g/dL TB TBH RDW 13.2 11.0 - 15.0 % TBH TBH PLT 181 150 - 450 10 3/uL TBH TBH MPV 10.0 9.5 - 13.5 fL TBH NEUTROPHILS PERCENT AUTO 60.7 43.0 - 75.0 % TBH LYMPHOCYTES PERCENT AUTO 26.8 20.5 - 60.0 % TBH MONOCYTES PERCENT AUTO 8.1 1.7 - 12.0 % TBH TBH EO % 2.2 0.9 - 7.0 % TBH BASOPHILS PERCENT AUTO 0.5 0.2 - 2.0 % TBH IMMATURE GRANULOCYTES PCT AUTO 1.7(H) 0.0 - 0.5 % TBH NEUTROPHILS ABSOLUTE AUTO 6.4 1.4 - 6.5 10 3/uL TBH LYMPHOCYTES ABSOLUTE AUTO 2.8 1.2 - 3.8 10 3/uL TBH MONOCYTES ABSOLUTE AUTO 0.9(H) 0.3 - 0.8 10 3/uL TBH TBH EO # 0.2 0.0 - 0.7 10 3/uL TBH BASOPHILS ABSOLUTE AUTO 0.1 0.0 - 0.1 10 3/uL TBH IMMATURE GRANULOCYTES ABS AUTO 0.18(H) 0.00 - 0.03 10 3/uL TBH 02/01/2025 4:40 PM EDT 02/01/2025 5:33 PM EDT Narrative CLINISYNC - 02/01/2025 5:40 PM EDT us Sandy Tejeda NP CLINISYNC Final Result CLINISYNC TBH * Colonoscopy (04/30/2021 12:00 PM EDT) Anatomical Region Laterality Modality Endoscopy 04/30/2021 12:0 0 PM EDT Narrative 04/30/2021 12:00 PM EDT PERFORMED AT [facility] LOCATION:[id number] Procedure Note CONVERSION, GENERIC - 12/01/[address] [facility] LOCATION:[id number] us Carmen Rosales MD ENDOSCOPY PROCEDURE ORDERABLE S Final Result from Last 3 Months or Most Recently Relevant to Health Maintenance Insurance [employer] MEDICAID [place] Care Teams Manager Instrumentation Relationship Specialty Start Date End Date Unallocated, Noms Provider, [address] [place] [address] PCP - General Family Medicine 06/07/24
--- OUTSIDE RECORDS SUMMARY | 2025-04-09 17:22 | XMS_ITS | Encounter Summary ---
Author Organization [facility] Address [address] [place] [address] Care Team Providers Care Print Buyer Name Role Phone Unallocated, Noms Provider Primary Care Provi epi Encounter Details Date Type Department Care Team ([facility] Contact Info) Description 09/07/2024 Abstract [facility] [address] [facility] [address] [place] [phone] Unallocated, Jaswant Tamez MD [address] [place] [address] Social History Tobacco Use Types Packs/Day Years [...] on filedocumented in this encounter Care Teams Print Buyer Relationship Specialty Start Date End Date Unallocated, Jaswant Tamez MD [address] [place] [address] PCP - General Family Medicine 06/07/24 documented as of this encounter
--- OUTSIDE RECORDS SUMMARY | 2025-04-09 17:22 | XMS_ITS | Encounter Summary ---
Author Organization [facility] Address [address] [place] [address] Care Team Providers Care Deck Engine Operator Name Role Phone Unallocated, Noms Provider Primary Care [facility] epi Encounter Details Date Type Department Care Team ([facility] st Contact Info) Description 03/26/2025 Abstract [facility] [address] [place] [phone] Unallocated, Jaswant [place] [address] Social History Tobacco Use Types Packs/Day Years [...] on filedocumented in this encounter Care Teams Deck Engine Operator Relationship Specialty Start Date End Date Unallocated, Jaswant Tamez MD [address] [place] [address] PCP - General Family Medicine 06/07/24 documented as of this encounter
--- OUTSIDE RECORDS SUMMARY | 2025-04-09 17:22 | XMS_ITS | Encounter Summary ---
Author Organization [facility] Address [address] [place] [address] Care Team Providers Care Patient Case Manager Name Role Phone Unallocated, Noms Provider Primary Care [facility] epi Encounter Details Date Type Department Care Team ([facility] st Contact Info) Description 03/19/2025 Abstract [facility] [address] [place] [phone] Unallocated, [place] [address] Social History Tobacco Use Types Packs/Day Years [...] on filedocumented in this encounter Care Teams Patient Case Manager Relationship Specialty Start Date End Date Unallocated, Jaswant Tamez MD [address] [place] [address] PCP - General Family Medicine 06/07/24 documented as of this encounter
--- OUTSIDE RECORDS SUMMARY | 2025-04-09 17:22 | XMS_ITS | Clinical Summary ---
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 Active multivitamin (THERAGRAN) tablet Take 1 tablet by mouth in the morning. Active carbidopa-levodop a (SINEMET) 25-100 mg per tablet Take 1 tablet by mouth in the morning and 1 tablet at noon and 1 tablet before bedtime. 025 Active diphenhydrAMINE (BENADRYL) 50 mg capsule Take 1 capsule (50 mg total) by mouth every 6 (six) hours as needed (agitation). Active clonazePAM (KlonoPIN) 0.5 mg tablet Take 1 tablet (0.5 mg total) by mouth in the morning and 1 tablet (0.5 mg total) before bedtime. For anxiety/depres martín/tremors. Active divalproex (DEPAKOTE ER) 250 mg 24 hr tablet Take 1 tablet (250 mg total) by mouth in the morning. Take with the 500mg dose to equal 750mg in the AM. Active gabapentin (NEURONTIN) 400 mg capsule Take 1 capsule (400 mg total) by mouth 3 (three) times a day. Active haloperidoL (HALDOL) 5 mg tablet Take 1 tablet (5 mg total) by mouth every 6 (six) hours as needed for agitation. Active furosemide (LASIX) 20 mg tablet Take 1 tablet (20 mg total) by mouth daily. Active latanoprost (XALATAN) 0.005 % ophthalmic solutionIndicatio ns:open angle glaucoma Administer 1 drop to both eyes in the morning. Indications: wide-angle glaucoma. Active magnesium oxide (MAGOX) 400 mg tablet Take 1 tablet (400 mg total) by mouth at noon. Active melatonin 10 mg tablet Take 10 mg by mouth nightly. Active primidone (MYSOLINE) 50 mg tablet Take 4 tablets (200 mg total) by mouth in the morning. Active acidophilus-pecti n, citrus 25 million cell -100 mg tablet Take 1 tablet by mouth daily with breakfast. Active cholecalciferol, vitamin D3, 2,000 units tablet Take 1 tablet (2,000 Units total) by mouth in the morning. Active acetaminophen (TYLENOL) 325 mg tablet Take 2 tablets (650 mg total) by mouth every 4 (four) hours as needed for pain. Active aspirin 81 mg capsule Take 1 capsule by mouth in the morning. Active divalproex (DEPAKOTE ER) 500 mg 24 hr tablet Take 1 tablet (500 mg total) by mouth in the morning. Active lamoTRIgine (LaMICtal) 200 mg tablet Take 1 tablet (200 mg total) by mouth in the morning. Active loperamide (IMODIUM A-D) 2 mg tablet Take 2 tablets (4 mg total) by mouth as needed for diarrhea. Take 2 tabs as needed for diarrhea after the 1st loose stool. Repeat 1 tab after each consecutive loose stool. Do not exceed 4 tabs in 24hrs Active mirtazapine (REMERON) 15 mg tablet Take 1 tablet (15 mg total) by mouth nightly. Active sodium chloride (Saline NasaL) 0.65 % nasal sprayIndications: dry nose Administer 2 sprays into each nostril every 2 (two) hours as needed Indications: dryness of the nose. Active timolol (TIMOPTIC) 0.5 % ophthalmic solution Administer 1 drop to both eyes in the morning. Active tiZANidine (ZANAFLEX) 2 mg tablet Take 1 tablet (2 mg total) by mouth every 8 (eight) hours as needed for muscle spasms. For low back pain Active primidone (MYSOLINE) 50 mg tablet Take 5 tablets (250 mg total) by mouth nightly. Active alum-mag hydroxide-simeth (MAALOX) 200-200-20 mg/5 mL suspensionIndicat ions:dyspepsia Take 30 mL by mouth 4 (four) times daily after meals and at bedtime as needed (dyspepsia) Indications: indigestion. Active atorvastatin (LIPITOR) 40 mg tablet Take 1 tablet (40 mg total) by mouth nightly. Active bisacodyL (DULCOLAX) 10 mg suppository Insert 1 suppository (10 mg total) into the rectum daily as needed for constipation. Active polyethylene glycol (GLYCOLAX) 17 gram packet Take 17 g by mouth daily as needed (constipation) . Active psyllium (METAMUCIL) 3.4 gram packet Take 1 packet (3.4 g total) by mouth in the morning. Active sennosides-docusa te sodium (SENOKOT-S) 8.6-50 mg Take 1 tablet by mouth 2 (two) times a day as needed for constipation. Active naloxone (NARCAN) 4 mg/actuation spray,non-aerosol nasal spray Administer 1 spray (4 mg total) into alternating nostrils as needed for opioid reversal. Active propranolol LA (INDERAL LA) 120 mg 24 hr capsule Take 1 capsule (120 mg total) by mouth daily with breakfast. 2024 Discontinued(S top Taking at Discharge) simvastatin (ZOCOR) 20 mg tablet Take 20 mg by mouth nightly. 2024 Discontinued(D ose adjustment) aspirin 81 mg chewable tablet Chew 1 tablet (81 mg total) and swallow in the morning. Stopped on 03/18/2017 for surgery. 2024 Discontinued lamoTRIgine (LaMICtal) 150 mg tablet Take 200 mg by mouth in the morning. 2024 Discontinued(D ose adjustment) acetaminophen (TYLENOL EXTRA STRENGTH) 500 mg tablet Take 1 tablet (500 mg total) by mouth every 4 (four) hours as needed for pain. 2024 Discontinued(T herapy completed) LORazepam (ATIVAN) 1 mg tablet Take 1 tablet (1 mg total) by mouth every 6 (six) hours as needed for anxiety. 2024 Discontinued(S top Taking at Discharge) hydrALAZINE (APRESOLINE) 25 mg tablet Take 1 tablet (25 mg total) by mouth 3 (three) times a day as needed (for sbp >150). 2024 Discontinued(S top Taking at Discharge) loperamide (IMODIUM) 2 mg capsule Take 1 capsule (2 mg total) by mouth 4 (four) times a day as needed for diarrhea. 2024 Discontinued(T herapy completed) mirtazapine (REMERON FAREED-TAB) 15 mg disintegrating tablet Dissolve 1 tablet (15 mg total) on tongue nightly. 2024 Discontinued potassium chloride (KLOR-CON SPRINKLE) 10 MEQ CR capsule Take 1 capsule (10 mEq total) by mouth in the morning. 2024 Discontinued(S top Taking at Discharge) primidone (MYSOLINE) 250 mg tablet Take 1 tablet (250 mg total) by mouth nightly. 2024 Discontinued timoloL (BETIMOL) 0.5 % ophthalmic solution Administer 1 drop to both eyes nightly. 2024 Discontinued simvastatin (ZOCOR) 40 mg tablet Take 1 tablet (40 mg total) by mouth nightly. 025 2024 Discontinued(S top Taking at Discharge) traMADoL (ULTRAM) 50 mg tabletIndications :Closed wedge compression fracture of L1 vertebra, initial encounter ([facility]) Take 1 tablet (50 mg total) by mouth every 6 (six) hours as needed for pain for up to 3 days. 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 Overview (03/25/2022): 03/25/22: CT 03/24/22 [...] Encounters Date Type Department Care Team Description 03/25/2025 Telephone [facility] Neurology, A Department of [facility] [address] [place] [id number] Lyndsay Lepe 03/25/2025 Telephone [facility] Neurology, A Department of [facility] [address] [place] [address] Manuela Martin 03/12/2025 4:13 PM EDT - 03/22/2025 4:17 PM EDT Hospital Encounter [facility] - GEN [address] Acute [address] [place] [address] Mey Cooper MD Pillai, Kanchan M, MD Closed wedge compression fracture of L1 vertebra, initial encounter ([facility]) (Primary Dx) Discharge Disposition: Senior Living Facility-Medicare Cert 03/12/2025 Travel 03/10/2025 Results Follow-Up [facility] Emergency [address] [place] [address] Mandy Wilson RN Urine Culture Urine, Clean Catch Midstream 03/09/2025 2:32 PM EDT - 03/12/2025 3:00 PM EDT Hospital Encounter [facility] - Acute Care [address] [place] [address] Wild De Los Santos DO Banerjee, Sunita, MD Asif, Zane Martinez MD Tremulousness (Primary Dx); Stroke-like symptoms Discharge Disposition: [facility] 03/08/2025 11:49 AM EDT - 03/08/2025 5:59 PM EDT Emergency [facility] - Emergency [address] [place] [address] Pawan Trinidad MD Fall, initial encounter (Primary Dx); Acute cystitis without hematuria; Closed compression fracture of L1 lumbar vertebra, initial encounter ([facility]); Facial abrasion, initial encounter Discharge Disposition: Home 03/08/2025 Travel 01/21/2025 3:16 PM EDT - 01/21/2025 6:10 PM EDT Emergency [facility] - Emergency [address] [place] [address] Carmen Tejeda DO Fall, initial encounter (Primary Dx) Discharge Disposition: Home 01/21/2025 Travel 01/19/2025 7:49 PM EDT - 01/19/2025 9:20 PM EDT Emergency [facility] - Emergency [address] [place] [address] Penelope Lui, Acute cystitis with hematuria (Primary Dx) Discharge Disposition: Home 01/19/2025 Travel from Last 3 Months Immunizations Immunization Administration Dates Next Due Influenza Split Preservative Free ID 03/21/2019 Influenza, Injectable, Quadrivalent 05/07/2019 Influenza, Injectable, quadrivalent (PF) 017,05/12/2016 Influenza, Unspecified 06/26/2018 Pneumococcal Polysaccharide 05/07/2019 Tdap 05/12/2016 Family History Medical History Relation Name Comments Hypertension Father Cancer Mother Lung cancer Mother Anesthesia problems Neg Hx Relation Name Status Comments Brother Alive Daughter Alive Father Mother Sister Alive Son Alive Social History Tobacco Use Types Packs/Day Years Used Date Smoking Tobacco: Former Cigarettes 1 20 Smokeless Tobacco: Never Tobacco Cessation:Counseling Given: Yes Comments:quit in early Alcohol Use Standard Drinks/Week Comments No 0 (1 standard drink = 0.6 oz pur e alcohol) [facility] Utilities Answer Date Recorded In the past 12 months has th e electric, gas, oil, or water company [...] Sign Reading Time Taken Comments Blood Pressure 122/76 03/22/2025 7:52 AM EDT Pulse 79 03/22/2025 7:52 AM EDT Temperature 36.7 C (98.1 F) 03/22/2025 7:52 AM EDT Respiratory Rate 16 03/22/2025 7:52 AM EDT Oxygen Saturation 99% 03/22/2025 4:13 AM EDT Inhaled Oxygen Concentration - - Weight 74 kg (163 lb 2.3 oz) 03/20/2025 4:05 AM EDT Height 165.1 cm (5' 5 ) 03/12/2025 6:27 PM EDT Body Mass Index 27.15 03/12/2025 6:27 PM EDT Plan of Treatment Health Maintenance Due Date Last Done Comments Depression Screening 1967 Adult BMI Follow Up Plan 01/12/1974 Zoster (Shingles) Vaccine (1 of 2) 01/12/2006 Fall Risk Screening 01/12/2021 Influenza Vaccine 03/18/2025 05/07/2019, , 06/26/2018, Additional history exists Tobacco Screening 03/09/2026 03/09/2025 Adult BMI Screening 03/20/2026 03/20/2025 DTaP,Tdap and Td Vaccines (2 - Td or Tdap) 05/12/2026 05/12/2016 Goals Goal Patient Goal Type Associated Problems Recent Progress Patient-Stated? Author return to [facility] per patient; await Guardian confirmation General Yes Christa Das LSW Note: Evaluation of progress towards goal: echo today, ST evaluation; pt was up in chair Medical Devices Not on file Procedures Procedure Name Priority Date/Time Associated Diagnosis Comments IR SPINAL PUNCTURE LUMBAR DIAGNOSTIC Routine 03/22/2025 9:08 AM EDT MENINGITIS PANEL, CSF Routine 03/22/2025 8:42 AM EDT GLUCOSE, CSF Routine 03/22/2025 8:42 AM EDT CSF IGG INDEX PROFILE Routine 03/22/2025 8:42 AM EDT CSF CELL COUNT Routine 03/22/2025 8:42 AM EDT TOTAL PROTEIN ON CSF Routine 03/22/2025 8:42 AM EDT ENCEPHALOPATHY - AUTOIMMUNE EVAL, CSF Routine 03/22/2025 8:42 AM EDT CSF SPINAL FLUID CULTURE INCLUDES GRAM STAIN Routine 03/22/2025 8:42 AM EDT OLIGOCLONAL BANDING CSF & SERUM STAT 03/22/2025 8:35 AM EDT IGG STAT Add-on 03/22/2025 7:40 AM EDT MAGNESIUM Routine 03/22/2025 6:38 AM EDT COMPREHENSIVE METABOLIC PANEL Routine 03/22/2025 6:38 AM EDT CBC WITH AUTO DIFFERENTIAL Routine 03/22/2025 6:38 AM EDT ENCEPHALOPATHY - AUTOIMMUNE EVAL, SERUM Routine 03/22/2025 12:21 AM EDT OBTAIN PULMONARY MECHANICS Routine 03/21/2025 8:00 AM EDT MAGNESIUM Routine 03/21/2025 5:52 AM EDT COMPREHENSIVE METABOLIC PANEL Routine 03/21/2025 5:52 AM EDT CBC WITH AUTO DIFFERENTIAL Routine 03/21/2025 5:52 AM EDT EXTRA TUBES SST TOP Routine 03/21/2025 5 :51 AM EDT EXTRA TUBES BLUE TOP Routine 03/21/2025 5:51 AM EDT EXTRA TUBES Routine 03/21/2025 5:51 AM EDT OBTAIN PULMONARY MECHANICS Routine 03/20/2025 8:00 PM EDT MAGNESIUM Routine 03/20/2025 5:19 AM EDT COMPREHENSIVE METABOLIC PANEL Routine 03/20/2025 5:19 AM EDT CBC WITH AUTO DIFFERENTIAL Routine 03/20/2025 5:19 AM EDT OBTAIN PULMONARY MECHANICS Routine 03/19/2025 8:00 AM EDT EXTRA TUBES SST TOP Routine 03/19/2025 5 :49 AM EDT EXTRA TUBES Routine 03/19/2025 5:49 AM EDT MAGNESIUM Routine 03/19/2025 5:49 AM EDT COMPREHENSIVE METABOLIC PANEL Routine 03/19/2025 5:49 AM EDT CBC WITH AUTO DIFFERENTIAL Routine 03/19/2025 5:49 AM EDT OBTAIN PULMONARY MECHANICS Routine 03/18/2025 8:00 AM EDT MAGNESIUM Routine 03/18/2025 6:55 AM EDT COMPREHENSIVE METABOLIC PANEL Routine 03/18/2025 6:55 AM EDT CBC WITH AUTO DIFFERENTIAL Routine 03/18/2025 6:55 AM EDT XR ABDOMEN AP 1 VW Routine 03/17/2025 12 :35 PM EDT US ABDOMEN LMTD Routine 03/17/2025 11:10 AM EDT MAGNESIUM Routine 03/17/2025 6:25 AM EDT COMPREHENSIVE METABOLIC PANEL Routine 03/17/2025 6:25 AM EDT CBC WITH AUTO DIFFERENTIAL Routine 03/17/2025 6:25 AM EDT OBTAIN PULMONARY MECHANICS Routine 03/16/2025 8:00 PM EDT URINALYSIS Routine 03/16/2025 2:09 PM EDT URINE CULTURE STAT 03/16/2025 2:09 PM EDT OBTAIN PULMONARY MECHANICS Routine 03/16/2025 12:27 PM EDT EXTRA TUBES SST TOP Routine 03/16/2025 1 1:33 AM EDT HEPATITIS PANEL, ACUTE Add-On 11:33 AM EDT EXTRA TUBES Routine 03/16/2025 11:33 AM EDT LACTATE W/ REFLEX Routine 03/16/2025 11: 33 AM EDT XR CHEST 1 VW Routine 03/16/2025 11:03 AM EDT BLOOD CULTURE STAT 03/16/2025 8:52 AM EDT BLOOD CULTURE STAT 03/16/2025 8:52 AM EDT PROCALCITONIN Add-On 03/16/2025 6:58 AM EDT MAGNESIUM Routine 03/16/2025 6:58 AM EDT COMPREHENSIVE METABOLIC PANEL Routine 03/16/2025 6:58 AM EDT CBC WITH AUTO DIFFERENTIAL Routine 03/16/2025 6:58 AM EDT MAGNESIUM Routine 03/15/2025 5:32 AM EDT COMPREHENSIVE METABOLIC PANEL Routine 03/15/2025 5:32 AM EDT CBC WITH AUTO DIFFERENTIAL Routine 03/15/2025 5:32 AM EDT IONIZED MAGNESIUM Routine 03/15/2025 12: 32 AM EDT POTASSIUM Routine 03/15/2025 12:31 AM EDT MAGNESIUM Routine 03/15/2025 12:31 AM EDT MAGNESIUM Routine 03/14/2025 8:04 AM EDT COMPREHENSIVE METABOLIC PANEL Routine 03/14/2025 8:04 AM EDT CBC WITH AUTO DIFFERENTIAL Routine 03/14/2025 8:04 AM EDT PROTIME & INR STAT 03/14/2025 8:03 AM EDT OBTAIN PULMONARY MECHANICS Routine 03/14/2025 8:00 AM EDT MYOGLOBIN, SERUM Add-On 03/13/2025 5:38 AM EDT CK TOTAL Add-On 03/13/2025 5:38 AM EDT VITAMIN D 25 HYDROXY Add-On 03/13/2025 5:38 AM EDT MAGNESIUM Routine 03/13/2025 5:38 AM EDT COMPREHENSIVE METABOLIC PANEL Routine 03/13/2025 5:38 AM EDT CBC WITH AUTO DIFFERENTIAL Routine 03/13/2025 5:38 AM EDT BEDSIDE GLUCOSE Routine 03/12/2025 4:42 PM EDT EXTRA TUBES BLUE TOP Routine 03/12/2025 4:12 AM EDT EXTRA TUBES Routine 03/12/2025 4:12 AM EDT COMPREHENSIVE METABOLIC PANEL Routine 03/12/2025 4:12 AM EDT CBC WITH AUTO DIFFERENTIAL Routine 03/12/2025 4:12 AM EDT ECHO COMPLETE WO CONTRAST Routine 03/11/2025 4:24 PM EDT MR THORACIC SPINE WO CONT Routine 03/11/2025 12:56 PM EDT MR LUMBAR SPINE WO CONT Routine 03/11/2025 12:56 PM EDT MR CERVICAL SPINE WO CONT Routine 03/11/2025 12:55 PM EDT MR BRAIN WO CONT Routine 03/11/2025 12:5 5 PM EDT EXTRA TUBES BLUE TOP Routine 03/11/2025 5:47 AM EDT EXTRA TUBES Routine 03/11/2025 5:47 AM EDT COMPREHENSIVE METABOLIC PANEL Routine 03/11/2025 5:47 AM EDT CBC WITH AUTO DIFFERENTIAL Routine 03/11/2025 5:47 AM EDT BEDSIDE GLUCOSE Routine 03/10/2025 8:27 PM EDT BEDSIDE GLUCOSE Routine 03/10/2025 4:09 PM EDT BEDSIDE GLUCOSE Routine 03/10/2025 11:20 AM EDT VITAMIN D 25 HYDROXY Add-On 03/10/2025 10:41 AM EDT FOLATE Add-On 03/10/2025 10:41 AM EDT VITAMIN B12 Add-On 03/10/2025 10:41 AM EDT LAMOTRIGINE, S Routine 03/10/2025 10:41 AM EDT VALPROIC ACID, FREE, S Routine 10:41 AM EDT EXTRA TUBES BLUE TOP Routine 03/10/2025 5:10 AM EDT EXTRA TUBES Routine 03/10/2025 5:10 AM EDT LIPID PROFILE Routine 03/10/2025 5:10 AM EDT COMPREHENSIVE METABOLIC PANEL Routine 03/10/2025 5:10 AM EDT CBC WITH AUTO DIFFERENTIAL Routine 03/10/2025 5:10 AM EDT TROP I, HIGH SENSITIVITY 1 HOUR STAT 03/09/2025 3:[address] CTA CAROTID STAT 03/09/2025 2:56 PM EDT ECG 12-LEAD STAT 03/09/2025 2:[address] CTA HEAD STAT 03/09/2025 2:51 PM EDT XR CHEST 1 VIEW STROKE STAT 2:51 PM EDT APTT STAT 03/09/2025 2:36 PM EDT PROTIME & INR STAT 03/09/2025 2:[address] BRAIN WO CONT STROKE ALERT STAT 03/09/2025 2:35 PM EDT HEMOGLOBIN A1C Add-On 03/09/2025 2:35 PM EDT TROPONIN I, HIGH SENSITIVITY 0 HOUR STAT 03/09/2025 2:35 PM EDT LIVER PANEL STAT 03/09/2025 2:35 PM EDT CBC WITH AUTO DIFFERENTIAL STAT 03/09/2025 2:35 PM EDT BASIC METABOLIC PANEL STAT 03/09/2025 2:35 PM EDT TROPONIN I, HIGH SENSITIVITY 0 HOUR STAT 03/09/2025 2:35 PM EDT PM ED CRITICAL CARE Routine 03/09/2025 2 :29 PM EDT ED PHYSICIAN NIHSS AND THROMBOLYTIC DECISION Routine 03/09/2025 2:29 PM EDT POCT NURSING URINE MACROSCOPIC UA Routine 03/08/2025 2:59 PM EDT ER EXTRA URINE MARBLE STAT 03/08/2025 2:50 PM EDT ER EXTRA URINE CULTURE STAT 2:50 PM EDT ER EXTRA URINE STAT 03/08/2025 2:50 PM EDT URINE CULTURE STAT 03/08/2025 2:50 PM EDT ECG 12-LEAD STAT 03/08/2025 2:22 PM EDT TROP I, HIGH SENSITIVITY 1 HOUR STAT 03/08/2025 1:48 PM EDT EXTRA TUBES BLUE TOP Routine 03/08/2025 12:32 PM EDT EXTRA TUBES Routine 03/08/2025 12:32 PM EDT TROPONIN I, HIGH SENSITIVITY 0 HOUR STAT 03/08/2025 12:32 PM EDT TROPONIN I, HIGH SENSITIVITY 0 HOUR STAT 03/08/2025 12:32 PM EDT COMPREHENSIVE METABOLIC PANEL STAT 03/08/2025 12:32 PM EDT LACTATE W/ REFLEX STAT 03/08/2025 12: 32 PM EDT CBC WITH AUTO DIFFERENTIAL STAT 03/08/2025 12:32 PM EDT XR SPINE LUMBAR 2 OR 3 VWS STAT 03/08/2025 12:28 PM EDT XR HIP LT 2-3 VIEWS W OR WO PELVIS STAT 03/08/2025 12:28 PM EDT XR CHEST 1 VW STAT 03/08/2025 12:[address] FACIAL BONES WO CONT STAT 03/08/2025 12:[address] CERVICAL SPINE WO CONT STAT 03/08/2025 12:[address] BRAIN WO CONT STAT 03/08/2025 12:2 3 PM EDT XR PELVIS 1 OR 2 VWS STAT 01/21/2025 5:[address] LUMBAR SPINE WO CONT STAT 01/21/2025 4:[address] CERVICAL SPINE WO CONT STAT 01/21/2025 4:[address] BRAIN WO CONT STAT 01/21/2025 4:32 PM EDT URINE CULTURE STAT 01/19/2025 9:00 PM EDT POCT NURSING URINE MACROSCOPIC UA Routine 01/19/2025 8:02 PM EDT from Last 3 Months Results * IR spinal puncture lumbar diagnostic (03/22/2025 9:08 AM EDT) Anatomical Region Laterality Modality IR N/A X-Ray Angiograph y 03/22/2025 7:13 PM EDT Narrative 03/22/2025 7:16 PM EDT LUMBAR PUNCTURE UNDER FLUOROSCOPY CLINICAL INDICATION: 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 CONSENT: The risks, benefits, and expectations of the procedure were eplained to the patient who signed a written consent. ANESTHESIA: Lidocaine 1%, 6 ml used for skin and soft tissue. TIME OUT: Pingree Protocol Time Out Verification performed. PROCEDURE: Automatic radiation exposure lowering techniques were utilized. All elements of maximal sterile barrier techniques followed including: cap and mask and sterile gown and sterile gloves and a large sterile sheet and hand hygiene and 2% chlorhexidine for cutaneous antisepsis. The total fluoroscopic time used during the procedure was 0.3 minutes, 1 fluoroscopic spot images were obtained and saved in PACS, and the reference air kerma was 6.64 mGy. The patient was positioned prone on the fluoroscopic table. A suitable site for lumbar puncture was identified, at the L3-L4 level. The patient was prepped and draped in usual sterile fashion. Lidocaine 1%, 5 mL was used for skin and subcutaneous tissue local anesthesia. Using intermittent fluoroscopic guidance, a 20-gauge spinal needle was advanced down through the interlaminar space. Lateral view was used to confirm proper depth of needle placement. The stylette was removed and clear CSF returned. Opening pressure was recorded with a manometer, at 1 cm water. A total of 16 mL of CSF was passively removed, into 4 separate test tubes. At the completion of CSF sampling, the stylet was replaced and the needle was removed. Hemostasis was obtained with manual compression. Estimated blood loss: 1 ml of blood. Press Manager: None. Complications: None. IMPRESSION: 1. Fluoroscopically guided LP, details as noted above. Opening pressure 1 cm water. Finalized by Yan Ulloa MD on 03/22/2025 7:16 PM Procedure Note Yan Ulloa MD - 03/22/2025 LUMBAR PUNCTURE UNDER FLUOROSCOPY CLINICAL INDICATION: Suspected AIDP, requires lumbar puncture fordiagnosis. CONSENT: The risks, benefits, and expectations of the procedure wereeplained to the patient who signed a written consent. ANESTHESIA: Lidocaine 1%, 6 ml used for skin and soft tissue. TIME OUT: Pingree Protocol Time Out Verification performed. PROCEDURE: Automatic radiation exposure lowering techniques were utilized.All elements of maximal sterile barrier techniques followed including: capand mask and sterile gown and sterile gloves and a large sterile sheet andhand hygiene and 2% chlorhexidine for cutaneous antisepsis. The total fluoroscopic time used during the procedure was 0.3 minutes, 1fluoroscopic spot images were obtained and saved in PACS, and thereference air kerma was 6.64 mGy. The patient was positioned prone on the fluoroscopic table. A suitablesite for lumbar puncture was identified, at the L3-L4 level. The patientwas prepped and draped in usual sterile fashion. Lidocaine 1%, 5 mL wasused for skin and subcutaneous tissue local anesthesia. Usingintermittent fluoroscopic guidance, a 20-gauge spinal needle was advanced down throughthe interlaminar space. Lateral view was used to confirm proper depth ofneedle placement. The stylette was removed and clear CSF returned. Opening pressure was recorded with a manometer, at 1 cm water. A total of16 mL of CSF was passively removed, into 4 separate test tubes. At thecompletion of CSF sampling, the stylet was replaced and the needle wasremoved. Hemostasis was obtained with manual compression. Estimated blood loss: 1 ml of blood. Press Manager: None. Complications: None. IMPRESSION: 1. Fluoroscopically guided LP, details as noted above. Opening pressure 1cm water. Finalized by Yan Ulloa MD on 03/22/2025 7:16 PM True Arriaga MD IMG IR ORDERABLES Final Result * (ABNORMAL) CSF IgG Index Profile (03/22/2025 8:42 AM EDT) CSF IGG INDEX PROFILE SEE COMMENTS( A) 03/26/2025 1:27 PM EDT [facility] copygram Comment: Test Result Flag Unit RefValue CSF IgG Index Profile IgG Index, CSF 0.54 <=0.70 IgG, CSF 3.0 mg/dL <=8.1 Albumin, CSF 11.0 mg/dL <=27.0 IgG/Albumin, CSF 0.27 H <=0.21 Synthesis Rate, CSF 0.07 mg/24 h <=12 IgG, S 1600 H mg/dL 767 - 1590 IgG/Albumin, S 0.50 H <=0.40 Albumin Quotient, CSF/Serum 3.44 <=14 Albumin, S 3200 L mg/dL 3500 - 5000 Test Performed by: [facility] [address] [place] [address] Procurement Services Manager: Haile Bianchi Ph.D.; CLIA# [id number] Test Performed by: [place] [address] Procurement Services Manager: Haile Bianchi Ph.D.; CLIA# [id number] Cerebrospinal Fluid (Back) 03/22/2025 8:42 AM EDT 03/22/2025 9:59 AM EDT us [facility] BLOOD ORDERABLES [place] [address], * Meningitis Panel, CSF (03/22/2025 8:42 AM EDT) E COLI K1 Not Detected Not Detected 03/22/2025 11:43 AM EDT [facility] H INFLUENZAE Not Detected Not Detected 03/22/2025 11:43 AM EDT [facility] L MONOCYTOGENES Not Detected Not Detected 03/22/2025 11:43 AM EDT [facility] N MENINGITIDIS Not Detected Not Detected 03/22/2025 11:43 AM EDT [facility] S AGALACTIAE Not Detected Not Detected 03/22/2025 11:43 AM EDT [facility] [facility] S PNEUMONIAE Not Detected Not Detected 03/22/2025 11:43 AM EDT [facility] CMV Not Detected Not Detected 03/22/2025 11:43 AM EDT [facility] ENTEROVIRUS Not Detected Not Detected 03/22/2025 11:43 AM EDT [facility] HERPES SIMPLEX 1 Not Detected Not Detected 03/22/2025 11:43 AM EDT [facility] HERPES SIMPLEX 2 Not Detected Not Detected 03/22/2025 11:43 AM EDT [facility] HERPES VIRUS 6 Not Detected Not Detected 03/22/2025 11:43 AM EDT [facility] PARECHOVIRUS Not Detected Not Detected 03/22/2025 11:43 AM EDT [facility] VARICELLA ZOSTER Not Detected Not Detected 03/22/2025 11:43 AM EDT [facility] C NEOFORMANS Not Detected Not Detected 03/22/2025 11:43 AM EDT [facility] Cerebrospinal Fluid Cerebrospinal fluid / Unknown 03/22/2025 8:42 AM EDT 03/22/2025 9:57 AM EDT us Charissa Epps PA BODY FLUIDS AND STOOLS ORDERA BLES Final Result Performing Organization Address City/[facility]/ZIP Co de Phone Number [facility] [address] [place] [address], * Csf total protein (03/22/2025 8:42 AM EDT) Pathologist [facility] CSF TOTAL PROTEIN 34 15 - 45 mg/dL 03/22/2025 10:52 AM EDT [facility] Cerebrospinal Fluid Cerebrospinal fluid / Unknown 03/22/2025 8:42 AM EDT 03/22/2025 9:57 AM EDT us Charissa Epps PA BODY FLUIDS AND STOOLS ORDERA BLES Final Result [facility] [address] [place] [address], * Encephalopathy - Autoimmune Eval, CSF (03/22/2025 8:42 AM EDT) ENCEPHALOPATHY-AUT OIMMUNE EVAL - CSF SEE COMMENTS 03/27/2025 5:08 PM EDT [facility] Comment: Test Result Flag Unit RefValue Enceph, Autoimm/Paraneo, CSF Encephalopathy, Interpretation, CSF SEE COMMENTS No informative autoantibodies were detected in this evaluation. However, a negative result does not exclude autoimmune encephalopathy, idiopathic or paraneoplastic. Sensitivity and specificity of antibody testing are enhanced by testing both serum and CSF. IFA Notes None. AMPA-R Ab CBA, CSF Negative Negative ADDITIONAL INFORMATION This test was developed and its performance characteristics determined by [facility] in a manner consistent with CLIA requirements. This test has not been cleared or approved by the U.S. Food and Drug Administration. Amphiphysin Ab, CSF Negative Negative ADDITIONAL INFORMATION This test was developed and its performance characteristics determined by [facility] in a manner consistent with CLIA requirements. This test has not been cleared or approved by the U.S. Food and Drug Administration. AGNA-1, CSF Negative Negative ADDITIONAL INFORMATION This test was developed and its performance characteristics determined by [facility] in a manner consistent with CLIA requirements. This test has not been cleared or approved by the U.S. Food and Drug Administration. MASTER-1, CSF Negative Negative ADDITIONAL INFORMATION This test was developed and its performance characteristics determined by [facility] in a manner consistent with CLIA requirements. This test has not been cleared or approved by the U.S. Food and Drug Administration. MASTER-2, CSF Negative Negative ADDITIONAL INFORMATION This test was developed and its performance characteristics determined by [facility] in a manner consistent with CLIA requirements. This test has not been cleared or approved by the U.S. Food and Drug Administration. MASTER-3, CSF Negative Negative ADDITIONAL INFORMATION This test was developed and its performance characteristics determined by [facility] in a manner consistent with CLIA requirements. This test has not been cleared or approved by the U.S. Food and Drug Administration. CASPR2-IgG CBA, CSF Negative Negative ADDITIONAL INFORMATION This test was developed and its performance characteristics determined by [facility] in a manner consistent with CLIA requirements. This test has not been cleared or approved by the U.S. Food and Drug Administration. CRMP-5-IgG, CSF Negative Negative ADDITIONAL INFORMATION This test was developed and its performance characteristics determined by [facility] in a manner consistent with CLIA requirements. This test has not been cleared or approved by the U.S. Food and Drug Administration. DPPX Ab CBA, CSF Negative Negative ADDITIONAL INFORMATION This test was developed and its performance characteristics determined by [facility] in a manner consistent with CLIA requirements. This test has not been cleared or approved by the U.S. Food and Drug Administration. JAMEY-B-R Ab CBA, CSF Negative Negative ADDITIONAL INFORMATION This test was developed and its performance characteristics determined by [facility] in a manner consistent with CLIA requirements. This test has not been cleared or approved by the U.S. Food and Drug Administration. GAD65 Ab Assay, CSF 0.00 nmol/L <= 0.02 ADDITIONAL INFORMATION This test was developed and its performance characteristics determined by [facility] in a manner consistent with CLIA requirements. This test has not been cleared or approved by the U.S. Food and Drug Administration. GFAP IFA, CSF Negative Negative ADDITIONAL INFORMATION This test was developed and its performance characteristics determined by [facility] in a manner consistent with CLIA requirements. This test has not been cleared or approved by the U.S. Food and Drug Administration. mGluR1 Ab IFA, CSF Negative Negative ADDITIONAL INFORMATION This test was developed and its performance characteristics determined by [facility] in a manner consistent with CLIA requirements. This test has not been cleared or approved by the U.S. Food and Drug Administration. IgLON5 CBA, CSF Negative Negative ADDITIONAL INFORMATION This test was developed and its performance characteristics determined by [facility] in a manner consistent with CLIA requirements. This test has not been cleared or approved by the U.S. Food and Drug Administration. LGI1-IgG CBA, CSF Negative Negative ADDITIONAL INFORMATION This test was developed and its performance characteristics determined by [facility] in a manner consistent with CLIA requirements. This test has not been cleared or approved by the U.S. Food and Drug Administration. Neurochondrin IFA, CSF Negative Negative ADDITIONAL INFORMATION This test was developed and its performance characteristics determined by [facility] in a manner consistent with CLIA requirements. This test has not been cleared or approved by the U.S. Food and Drug Administration. NIF IFA, CSF Negative Negative ADDITIONAL INFORMATION This test was developed and its performance characteristics determined by [facility] in a manner consistent with CLIA requirements. This test has not been cleared or approved by the U.S. Food and Drug Administration. NMDA-R Ab CBA, CSF Negative Negative ADDITIONAL INFORMATION This test was developed and its performance characteristics determined by [facility] in a manner consistent with CLIA requirements. This test has not been cleared or approved by the U.S. Food and Drug Administration. DOMAIN ARCHITECT-Tr, CSF Negative Negative ADDITIONAL INFORMATION This test was developed and its performance characteristics determined by [facility] in a manner consistent with CLIA requirements. This test has not been cleared or approved by the U.S. Food and Drug Administration. DOMAIN ARCHITECT-1, CSF Negative Negative ADDITIONAL INFORMATION This test was developed and its performance characteristics determined by [facility] in a manner consistent with CLIA requirements. This test has not been cleared or approved by the U.S. Food and Drug Administration. DOMAIN ARCHITECT-2, CSF Negative Negative ADDITIONAL INFORMATION This test was developed and its performance characteristics determined by [facility] in a manner consistent with CLIA requirements. This test has not been cleared or approved by the U.S. Food and Drug Administration. PDE10A Ab IFA, CSF Negative Negative ADDITIONAL INFORMATION This test was developed and its performance characteristics determined by [facility] in a manner consistent with CLIA requirements. This test has not been cleared or approved by the U.S. Food and Drug Administration. Septin-7 IFA, CSF Negative Negative ADDITIONAL INFORMATION This test was developed and its performance characteristics determined by [facility] in a manner consistent with CLIA requirements. This test has not been cleared or approved by the U.S. Food and Drug Administration. TRIM46 Ab IFA, CSF Negative Negative ADDITIONAL INFORMATION This test was developed and its performance characteristics determined by [facility] in a manner consistent with CLIA requirements. This test has not been cleared or approved by the U.S. Food and Drug Administration. Test Performed by: [facility] [place] [address] [address] Procurement Services Manager: Haile Bianchi Ph.D.; CLIA# [id number] Cerebrospinal Fluid (Lumbar Puncture) 03/22/2025 8:42 AM EDT 03/22/2025 9:55 AM EDT us Charissa SAMPSON BODY FLUIDS AND STOOLS ORDERA BLES Final Result [address] [address], * Spinal Fluid culture includes gram stain, CSF (03/22/2025 8:42 AM EDT) CULTURE RESULTS NO GROWTH 5 DAYS 03/27/2025 7:34 AM EDT [facility] GRAM STAIN White Blood Cells Present 03/27/2025 7:34 AM EDT [facility] GRAM STAIN No organisms seen 03/27/2025 7:34 AM EDT [facility] GRAM STAIN On Concentrated Smear 03/27/2025 7:34 AM EDT [facility] Cerebrospinal Fluid Cerebrospinal fluid / Unknown 03/22/2025 8:42 AM EDT 03/22/2025 9:57 AM EDT us Charissa SAMPSON MICROBIOLOGY - GENERAL ORDERA BLES Final Result [facility] [address] [place] [address], * CSF Spinal Fluid Cell Count (03/22/2025 8:42 AM EDT) CSF Color Colorless 03/22/2025 11:35 AM EDT [facility] Appearance, CSF Clear 11:35 AM EDT [facility] CSF supernatant Colorless 11:35 AM EDT [facility] CSF RBC 1 0 - 1 /uL 03/22/2025 11:35 AM EDT [facility] CSF Nucleated Cells 0 0 - 5 /uL 03/22/2025 11:35 AM EDT [facility] Cerebrospinal Fluid Cerebrospinal fluid / Unknown 03/22/2025 8:42 AM EDT 03/22/2025 9:57 AM EDT Narrative [facility] - 03/22/2025 11:35 AM EDT NUCLEATED CELLS <5/ L; DIFF NOT TESTED. us Charissa SAMPSON BODY FLUIDS AND STOOLS ORDERA BLES Final Result [facility] [address] [place] [address], * Glucose, CSF (03/22/2025 8:42 AM EDT) Pathologist [facility] CSF GLUCOSE 65 40 - 70 mg/dL 03/22/2025 10:52 AM EDT [facility] Cerebrospinal Fluid Cerebrospinal fluid / Unknown 03/22/2025 8:42 AM EDT 03/22/2025 9:57 AM EDT us Charissa SAMPSON BODY FLUIDS AND STOOLS ORDERA BLES Final Result [facility] [address] [place] [address], * Oligoclonal Banding CSF & Serum (03/22/2025 8:35 AM EDT) [facility] SERUM BANDS OLIG 6 bands 03/26/20 1:29 PM EDT [facility] CSF BANDS OLIG 7 bands 03/26/2025 1:29 PM EDT [facility] CSF OLIG BANDS INTERP 1 <2 bands 03/26/2025 1:29 PM EDT [facility] Comment: The oligoclonal band assay detected 1 unique IgG band in the CSF. This is a negative result. Test Performed by: [facility] [address] [place] [address] Procurement Services Manager: aHile Bianchi Ph.D.; CLIA# [id number] Cerebrospinal Fluid Venous blood / Unknown 03/22/2025 8:35 AM EDT 03/22/2025 8:36 AM EDT Liat Benson MD BODY FLUIDS AND STOOLS ORDERABL ES Final Result [facility] [address] [place] [address], * IgG (03/22/2025 7:40 AM EDT) IGG 1,629 635 - 1,741 mg/dL 03/22/2025 9:15 AM EDT [facility] Blood Venous blood / Unknown Venipuncture / Unknown 03/22/2025 7:40 AM EDT 03/22/2025 8:36 AM EDT us Liat Benson MD LAB BLOOD ORDERABLES Final Resu lt [facility] [address] [place] [address], [place] [phone] * (ABNORMAL) CBC auto differential (03/22/2025 6:38 AM EDT) Only the most recent of15 resultswithin the time period is included. WBC 9.0 4 - 11 x10E9/L 03/22/2025 9:00 AM EDT [facility] RBC Count 4.07 3.8 - 5.2 X10E12/L 03/22/2025 9:00 AM EDT [facility] Hemoglobin 13.3 11.7 - 15.5 g/dL 03/22/2025 9:00 AM EDT [facility] Hematocrit 39.6 35 - 47 % 03/22/2025 9:00 AM EDT [facility] MCV 98 80 - 100 fL 03/22/2025 9:00 AM EDT [facility] MCH 32.8 27 - 34 pg 03/22/2025 9:00 AM EDT [facility] MCHC 33.6 32 - 36 g/dL 03/22/2025 9:00 AM EDT [facility] RDW 13.7 11.5 - 15 % 03/22/2025 9:00 AM EDT [facility] Platelet Count 148(L) 150 - 450 X10E9/L 03/22/2025 9:00 AM EDT [facility] MPV 8.3 7 - 12 fL 03/22/2025 9:00 AM EDT [facility] Myelocyte % 8 % 03/22/2025 9:00 AM [facility] Comment:This is an appended report. These results have been appended to a previously preliminary verified report. Metamyelocytes % 3 % 03/22/20 25 9:00 AM [facility] Comment:This is an appended report. These results have been appended to a previously preliminary verified report. Bands % 2 % 03/22/2025 9:00 AM [facility] Comment:This is an appended report. These results have been appended to a previously preliminary verified report. Neutrophils % 51 % 03/22/2025 9:00 AM [facility] Comment:This is an appended report. These results have been appended to a previously preliminary verified report. Lymphocytes % 27 % 03/22/2025 9:00 AM [facility] Comment:This is an appended report. These results have been appended to a previously preliminary verified report. Monocytes % 6 % 03/22/2025 9:00 AM [facility] Comment:This is an appended report. These results have been appended to a previously preliminary verified report. Eosinophils % 1 % 03/22/2025 9:00 AM [facility] Comment:This is an appended report. These results have been appended to a previously preliminary verified report. Basophils % 1 % 03/22/2025 9:00 AM [facility] Comment:This is an appended report. These results have been appended to a previously preliminary verified report. Atypical Lymphs % 2 % 025 9:00 AM [facility] Comment:This is an appended report. These results have been appended to a previously preliminary verified report. Neutrophils Absolute (M) 4.8 1.5 - 6.6 10*3/uL 03/22/2025 9:00 AM [facility] Comment:This is an appended report. These results have been appended to a previously preliminary verified report. Lymphocytes Absolute 2.6 1.0 - 3.5 10*3/uL 03/22/2025 9:00 AM [facility] Comment:This is an appended report. These results have been appended to a previously preliminary verified report. Monocytes Absolute 0.5 0.0 - 0.9 10*3/uL 03/22/2025 9:00 AM EDT [facility] Comment:This is an appended report. These results have been appended to a previously preliminary verified report. Eosinophils Absolute 0.0 0.0 - 0.4 10*3/uL 03/22/2025 9:00 AM EDT [facility] Comment:This is an appended report. These results have been appended to a previously preliminary verified report. Basophils Absolute 0.0 0.0 - 0.2 10*3/uL 03/22/2025 9:00 AM EDT [facility] Comment:This is an appended report. These results have been appended to a previously preliminary verified report. RBC Morphology Normal 03/22/2025 9:00 AM EDT [facility] Comment:This is an appended report. These results have been appended to a previously preliminary verified report. Differential Type MANUAL DIFFERENTIAL 03/22/2025 9:00 AM EDT [facility] Comment:This is an appended report. These results have been appended to a previously preliminary verified report. Blood Venous blood / Unknown Venipuncture / Unknown 03/22/2025 6:38 AM EDT 03/22/2025 6:58 AM EDT Awilda Devi OBSTETRICS GYN PHYSICIAN-CUSHION MAKER HAND LAB BLOOD ORDERABLES Final Result [facility] [address] [place] [address], * Magnesium (03/22/2025 6:38 AM EDT) Only the most recent of11 resultswithin the time period is included. MAGNESIUM 1.8 1.8 - 2.6 mg/dL 03/22/2025 7:32 AM EDT [facility] Blood Venous blood / Unknown Venipuncture / Unknown 03/22/2025 6:38 AM EDT 03/22/2025 6:59 AM EDT Awilda Burgesso OBSTETRICS GYN PHYSICIAN-CUSHION MAKER HAND LAB BLOOD ORDERABLES Final Result [facility] [address] [place] [address], [place] [phone] * (ABNORMAL) Comprehensive metabolic panel (03/22/2025 6:38 AM EDT) Only the most recent of14 resultswithin the time period is included. SODIUM 140 134 - 146 mmol/L 03/22/2025 7:32 AM EDT [facility] POTASSIUM 4.1 3.5 - 5.0 mmol/L 03/22/2025 7:32 AM EDT [facility] CHLORIDE 100 98 - 109 mmol/L 03/22/2025 7:32 AM EDT [facility] CARBON DIOXIDE 31 22 - 32 mmol/L 03/22/2025 7:32 AM EDT [facility] ANION GAP 9 5 - 15 mmol/L 03/22/2025 7:32 AM EDT [facility] BLOOD UREA NITROGEN 10 5 - 27 mg/dL 03/22/2025 7:32 AM EDT [facility] CREATININE 0.37(L) 0.40 - 1.00 mg/dL 03/22/2025 7:32 AM EDT [facility] Comment:METHOD TRACEABLE TO IDMS STANDARD GLUCOSE 112(H) 65 - 99 mg/dL 03/22/2025 7:32 AM EDT [facility] CALCIUM 9.0 8.5 - 10.5 mg/dL 03/22/2025 7:32 AM EDT [facility] TOTAL PROTEIN 7.1 6.0 - 8.0 g/dL 03/22/2025 7:32 AM EDT [facility] ALBUMIN 3.2 3.2 - 5.3 g/dL 03/22/2025 7:32 AM EDT [facility] ALKALINE PHOSPHATASE 189(H) 39 - 130 U/L 03/22/2025 7:32 AM EDT [facility] AST 46(H) <=41 U/L 03/22/2025 7:32 AM EDT [facility] ALT 36(H) <=31 U/L 03/22/2025 7:32 AM EDT [facility] BILIRUBIN,TOTAL 0.2(L) 0.3 - 1.2 mg/dL 03/22/2025 7:32 AM EDT [facility] EGFR Non-Race Dependent >90 >=60 ml/min/1.7 3sq.m 03/22/2025 7:32 AM EDT [facility] Comment: Reported eGFR is based on the CKD-EPI 2020 equation that does not use a race coefficient. Blood Venous blood / Unknown Venipuncture / Unknown 03/22/2025 6:38 AM EDT 03/22/2025 6:59 AM EDT Awilda Devi OBSTETRICS GYN PHYSICIAN-CUSHION MAKER HAND LAB BLOOD ORDERABLES Final Result [facility] [address] [place] [address], * (ABNORMAL) Encephalopathy - Autoimmune Eval, Serum (03/22/2025 12:21 AM EDT) ENCEPHALOPATHY-AUTOI MMUNE EVAL - SERUM SEE COMMENTS (A) 04/02/2025 10:46 AM EDT [facility] Comment: Test Result Flag Unit RefValue Encephalopathy, Autoimm/Paraneo, S Encephalopathy, SEE COMMENTS Interpretation, S The following antibody was identified: Contactin-associated jonlgok-4-ZwJ (CASPR2). * Contactin-associated xmqyxko-4-GwH (CASPR2) antibodies were detected at a 1:10 dilution but were undetectable at a 1:100 dilution. * This result should be interpreted with caution. Low titer CASPR2 IgG has low specificity for CASPR2 neurological autoimmunity and can be detected in non-autoimmune neurological disorders (e.g., neurodegenerative diseases). * References: Marvin CORNEJO, Myrna Gerard, Nunu Nichols, Suyapa FREY, Ranjith T, Araceli M, Iskayley S, Jarod P, Rocio N, Danilo M, Massimo M, Oseas WR, von Natalio TJ, von Benedicto F, Sharon H, November TW. Fywx-smhrlspjp-zihjvpzdvq protein-2 encephalitis: relevance of antibody titres, presentation and outcome. Eur J Neurol. 2017 Jul;24(1):175-186. doi: 10.1111/moreno.49585. Epub 2015May 13. PMID: 15447978. * Vincent Christine Britton J, Kraus GJ, Milo GUZMAN, Ankur Mauro, Hi BROWN, Jewel Mauro, Edenilson RIVERA, Ed WILKS, Balaji D. GCQID0-DaU-fkvnhqfmmb autoimmune seizures. Epilepsia. 2021Aug 01. doi: 10.1111/epi.07480. Epub ahead of print. PMID: 48106384. * Vincent Christine Britton J, Kraus GJ, Milo GUZMAN, Ankur Mauro, Hi BROWN, Jewel Mauro, Edenilson RIVERA, Ed WILKS, Balaji D. HIQKG8-RdU-atloqceqlm autoimmune seizures. Epilepsia. 2021;63(3):709-722. doi: 10.1111/epi.06571. Epub 2021Aug 01. PMID: 04013048. * Titration scheme in the damaso CORNEJO et al. Eur J Neurol. 2017 study is slightly different. * IFA Notes None. AMPA-R Ab CBA, S Negative Negative ADDITIONAL INFORMATION This test was developed and its performance characteristics determined by [facility] in a manner consistent with CLIA requirements. This test has not been cleared or approved by the U.S. Food and Drug Administration. Amphiphysin Ab, S Negative Negative ADDITIONAL INFORMATION This test was developed and its performance characteristics determined by [facility] in a manner consistent with CLIA requirements. This test has not been cleared or approved by the U.S. Food and Drug Administration. AGNA-1, S Negative Negative ADDITIONAL INFORMATION This test was developed and its performance characteristics determined by [facility] in a manner consistent with CLIA requirements. This test has not been cleared or approved by the U.S. Food and Drug Administration. MASTER-1, S Negative Negative ADDITIONAL INFORMATION This test was developed and its performance characteristics determined by [facility] in a manner consistent with CLIA requirements. This test has not been cleared or approved by the U.S. Food and Drug Administration. MASTER-2, S Negative Negative ADDITIONAL INFORMATION This test was developed and its performance characteristics determined by [facility] in a manner consistent with CLIA requirements. This test has not been cleared or approved by the U.S. Food and Drug Administration. MASTER-3, S Negative Negative ADDITIONAL INFORMATION This test was developed and its performance characteristics determined by [facility] in a manner consistent with CLIA requirements. This test has not been cleared or approved by the U.S. Food and Drug Administration. CASPR2-IgG CBA, S Positive 1:10 H Negative Contactin-associated drfigho-5-IoE (CASPR2) antibodies were detected at a 1:10 dilution but were undetectable at a 1:100 dilution * This result should be interpreted with caution. Low titer CASPR2 IgG has low specificity for CASPR2 neurological autoimmunity and can be detected in non-autoimmune neurological disorders (e.g., neurodegenerative diseases). * References: Marvin CORNEJO, Myrna Gerard, Nunu Nichols, Suyapa FREY, Ranjith T, Araceli M, Sergio S, Jarod P, Rocio N, Danilo M, Massimo M, Scha ADDITIONAL INFORMATION This test was developed and its performance characteristics determined by [facility] in a manner consistent with CLIA requirements. This test has not been cleared or approved by the U.S. Food and Drug Administration. CRMP-5-IgG, S Negative Negative ADDITIONAL INFORMATION This test was developed and its performance characteristics determined by [facility] in a manner consistent with CLIA requirements. This test has not been cleared or approved by the U.S. Food and Drug Administration. DPPX Ab CBA, S Negative Negative ADDITIONAL INFORMATION This test was developed and its performance characteristics determined by [facility] in a manner consistent with CLIA requirements. This test has not been cleared or approved by the U.S. Food and Drug Administration. JAMEY-B-R Ab CBA, S Negative Negative ADDITIONAL INFORMATION This test was developed and its performance characteristics determined by [facility] in a manner consistent with CLIA requirements. This test has not been cleared or approved by the U.S. Food and Drug Administration. GAD65 Ab Assay, S 0.00 nmol/L <= 0.02 ADDITIONAL INFORMATION This test was developed and its performance characteristics determined by [facility] in a manner consistent with CLIA requirements. This test has not been cleared or approved by the U.S. Food and Drug Administration. GFAP IFA, S Negative Negative ADDITIONAL INFORMATION This test was developed and its performance characteristics determined by [facility] in a manner consistent with CLIA requirements. This test has not been cleared or approved by the U.S. Food and Drug Administration. mGluR1 Ab IFA, S Negative Negative ADDITIONAL INFORMATION This test was developed and its performance characteristics determined by [facility] in a manner consistent with CLIA requirements. This test has not been cleared or approved by the U.S. Food and Drug Administration. IgLON5 CBA, S Negative Negative ADDITIONAL INFORMATION This test was developed and its performance characteristics determined by [facility] in a manner consistent with CLIA requirements. This test has not been cleared or approved by the U.S. Food and Drug Administration. LGI1-IgG CBA, S Negative Negative ADDITIONAL INFORMATION This test was developed and its performance characteristics determined by [facility] in a manner consistent with CLIA requirements. This test has not been cleared or approved by the U.S. Food and Drug Administration. Neurochondrin IFA, S Negative Negative ADDITIONAL INFORMATION This test was developed and its performance characteristics determined by [facility] in a manner consistent with CLIA requirements. This test has not been cleared or approved by the U.S. Food and Drug Administration. NIF IFA, S Negative Negative ADDITIONAL INFORMATION This test was developed and its performance characteristics determined by [facility] in a manner consistent with CLIA requirements. This test has not been cleared or approved by the U.S. Food and Drug Administration. NMDA-R Ab CBA, S Negative Negative ADDITIONAL INFORMATION This test was developed and its performance characteristics determined by [facility] in a manner consistent with CLIA requirements. This test has not been cleared or approved by the U.S. Food and Drug Administration. DOMAIN ARCHITECT-1, S Negative Negative ADDITIONAL INFORMATION This test was developed and its performance characteristics determined by [facility] in a manner consistent with CLIA requirements. This test has not been cleared or approved by the U.S. Food and Drug Administration. DOMAIN ARCHITECT-2, S Negative Negative ADDITIONAL INFORMATION This test was developed and its performance characteristics determined by [facility] in a manner consistent with CLIA requirements. This test has not been cleared or approved by the U.S. Food and Drug Administration. DOMAIN ARCHITECT-Tr, S Negative Negative ADDITIONAL INFORMATION This test was developed and its performance characteristics determined by [facility] in a manner consistent with CLIA requirements. This test has not been cleared or approved by the U.S. Food and Drug Administration. PDE10A Ab IFA, S Negative Negative ADDITIONAL INFORMATION This test was developed and its performance characteristics determined by [facility] in a manner consistent with CLIA requirements. This test has not been cleared or approved by the U.S. Food and Drug Administration. Septin-7 IFA, S Negative Negative ADDITIONAL INFORMATION This test was developed and its performance characteristics determined by [facility] in a manner consistent with CLIA requirements. This test has not been cleared or approved by the U.S. Food and Drug Administration. TRIM46 Ab IFA, S Negative Negative ADDITIONAL INFORMATION This test was developed and its performance characteristics determined by [facility] in a manner consistent with CLIA requirements. This test has not been cleared or approved by the U.S. Food and Drug Administration. Test Performed by: [facility] - [address] [address] Procurement Services Manager: Haile Bianchi Ph.D.; CLIA# [id number] Blood Venous blood / Unknown Venipuncture / Unknown 03/22/2025 12:21 AM EDT 03/22/2025 1:11 AM EDT Lashay Clement MD LAB BLOOD ORDERABLES Final R esult Performing Organization Address [facility]/ZIP Co de Phone Number [address] [address], * [facility] TOP (03/21/2025 5:51 AM EDT) Only the most recent of3 resultswithin the time period is included. Extra Tube Auto Resulted 03/21/2025 7:01 AM EDT [facility] Blood Venous blood / Unknown 03/21/2025 5:51 AM EDT 03/21/2025 6:32 AM EDT Lashay Clement MD LAB BLOOD ORDERABLES Final R esult Performing Organization Address City/[facility]/ZIP Co de Phone Number [facility] [address] [place] [address], [place] [phone] * Light Blue Top (03/21/2025 5:51 AM EDT) Only the most recent of5 resultswithin the time period is included. Extra Tube Auto Resulted 03/21/2025 7:01 AM EDT [facility] Blood Venous blood / Unknown 03/21/2025 5:51 AM EDT 03/21/2025 6:32 AM EDT Lashay Clement MD LAB BLOOD ORDERABLES Final R esult [facility] [address] [place] [address], [place] [phone] * X-ray abdomen ap 1 view (03/17/2025 12:35 PM EDT) Anatomical Region Laterality Modality Body, Abdomen N/A Computed Radiogr aphy 03/17/2025 1:54 PM EDT Narrative 03/17/2025 1:54 PM EDT EXAM: XR ABDOMEN AP 1 VW CLINICAL INFORMATION: Abd pain. COMPARISON: None. FINDINGS: There is no evidence of obstruction, pneumatosis, or free air. Fecal loading is noted within the colon; clinical correlation for symptoms attributable to constipation is recommended. IMPRESSION: Fecal loading is noted within the colon; clinical correlation for symptoms attributable to constipation is recommended. Finalized by Kaden Delgado MD on 03/17/2025 1:54 PM Procedure Note Kaden Delgado MD - 03/17/2025 EXAM: XR ABDOMEN AP 1 VW CLINICAL INFORMATION: Abd pain. COMPARISON: None. FINDINGS: There is no evidence of obstruction, pneumatosis, or free air. Fecalloading is noted within the colon; clinical correlation for symptomsattributable to constipation is recommended. IMPRESSION: Fecal loading is noted within the colon; clinical correlation for symptomsattributable to constipation is recommended. Finalized by Kaden Delgado MD on 03/17/2025 1:54 PM us Opal Monteropanfilo OBSTETRICS GYN PHYSICIAN-CUSHION MAKER HAND IMG DIAGNOSTIC IMAGING OR DERABLES Final Result * Ultrasound abdomen limited (03/17/2025 11:10 AM EDT) Anatomical Region Laterality Modality Body, Abdomen Ultrasound 03/17/2025 1:15 PM EDT Narrative 03/17/2025 1:15 PM EDT ULTRASOUND ABDOMEN LIMITED HISTORY: Elevation of liver enzymes COMPARISON: 11/19/2015 FINDINGS: Visualized portions of the pancreatic body are unremarkable. Remaining portions of the pancreas are obscured by overlying bowel gas. No cholelithiasis, gallbladder wall thickening, or pericholecystic fluid. Sonographic Gregorio's sign is negative. The liver is normal in echotexture and echogenicity with no focal liver mass. The main portal vein is patent with normal direction of flow. No intrahepatic or extrahepatic biliary ductal dilatation. The common duct measures 0.4 cm. IMPRESSION: Unremarkable right upper quadrant abdominal ultrasound. Finalized by Marky Waller MD on 03/17/2025 1:15 PM Procedure Note Marky Waller MD - 03/17/2025 ULTRASOUND ABDOMEN LIMITED HISTORY: Elevation of liver enzymes COMPARISON: 11/19/2015 FINDINGS: Visualized portions of the pancreatic body are unremarkable. Remainingportions of the pancreas are obscured by overlying bowel gas. No cholelithiasis, gallbladder wall thickening, or pericholecystic fluid.Sonographic Gregorio's sign is negative. The liver is normal in echotexture and echogenicity with no focal livermass. The main portal vein is patent with normal direction of flow. Nointrahepatic or extrahepatic biliary ductal dilatation. The common ductmeasures 0.4 cm. IMPRESSION: Unremarkable right upper quadrant abdominal ultrasound. Finalized by Marky Waller MD on 03/17/2025 1:15 PM us Opal Monteropanfilo OBSTETRICS GYN PHYSICIAN-CUSHION MAKER HAND IMG US ORDERABLES Final R esult * (ABNORMAL) Urinalysis (03/16/2025 2:09 PM EDT) COLOR Yellow Yellow 03/16/2025 4:00 PM EDT [facility] TURBIDITY Hazy(A) Clear 03/16/2025 4:00 PM EDT [facility] SPECIFIC GRAVITY 1.011 1.003 - 1.035 03/16/2025 4:00 PM EDT [facility] NITRITE Negative Negative 03/16/2025 4:00 PM EDT [facility] PH,URINE 7.0 5.0 - 8.5 03/16/2025 4:00 PM EDT [facility] LEUKOCYTE ESTERASE Small(A) Negative 03/16/2025 4:00 PM EDT [facility] PROTEIN Trace(A) Negative 03/16/2025 4:00 PM EDT [facility] KETONES (URINE) Negative Negative 4:00 PM EDT [facility] UROBILINOGEN <1.1 eu/dL <1.1 eu/dL 03/16/2025 4:00 PM EDT [facility] BILIRUBIN (URINE) Negative Negative 03/16/2025 4:00 PM EDT [facility] BLOOD/HGB Trace(A) Negative 03/16/2025 4:00 PM EDT [facility] R.B.CELLS 2 0 - 5 03/16/2025 4:00 PM EDT [facility] W.B.CELLS 7(H) 0 - 5 03/16/2025 4:00 PM EDT [facility] GLUCOSE (URINE) Negative Negative 4:00 PM EDT [facility] Urine (Urine, Indwelling Catheter) 03/16/2025 2:09 PM EDT 03/16/2025 2:41 PM EDT us Opal Dyer OBSTETRICS GYN PHYSICIAN-CUSHION MAKER HAND URINE ORDERABLES Final Re sult [facility] [address] [place] [address], [place] [phone] * (ABNORMAL) Urine Culture Urine, Indwelling Catheter (03/16/2025 2:09 PM EDT) Only the most recent of3 resultswithin the time period is included. CULTURE RESULTS >100,000 CFU/mL Escherichia coli(A) 03/19/2025 8:29 AM EDT [facility] Urine (Urine, Indwelling Catheter) 03/16/2025 2:09 PM EDT 03/16/2025 2:41 PM EDT Narrative Organism Antibiotic Method Susceptibility Escherichia coli Ampicillin >=32.0: Resistant Escherichia coli AMP/SULBACTAM >=32.0: Resistant Escherichia coli PIPERACIL/TAZOBACTAM 8.0: Susceptible Escherichia coli Cefazolin (non-urinary) 4.0: Intermediate Escherichia coli Cefazolin (urinary) 4.0: Susceptible Escherichia coli Ceftriaxone <=0.25: Susceptible Escherichia coli Gentamicin <=1.0: Susceptible Escherichia coli Ciprofloxacin 0.5: Intermediate Escherichia coli Levofloxacin 0.5: Susceptible Escherichia coli Nitrofurantoin <=16.0: Susceptible Escherichia coli Trimethoprim + Sulfamethoxazole <=1.0: Susceptible us Opal Dyer OBSTETRICS GYN PHYSICIAN-CUSHION MAKER HAND MICROBIOLOGY - GENERAL OR DERABLES Final Result [facility] [address] [place] [address], * Lactate w/ Reflex (03/16/2025 11:33 AM EDT) Only the most recent of2 resultswithin the time period is included. LACTATE W/REFLEX 1.7 0.4 - 2.0 mmol/L 03/16/2025 12:07 PM EDT [facility] Blood Venous blood / Unknown Venipuncture / Unknown 03/16/2025 11:33 AM EDT 03/16/2025 11:43 AM EDT Narrative [facility] - 03/16/2025 12:07 PM EDT Result did not trigger repeat Lactate, re-order if needed. Opal Dyer OBSTETRICS GYN PHYSICIAN-CUSHION MAKER HAND LAB BLOOD ORDERABLES Samantha singletary Result [facility] [address] [place] [address], [place] [phone] * Hepatitis panel, acute (03/16/2025 11:33 AM EDT) HEPATITIS B SURF AG Non-Reacti ve Non-Reacti ve 03/17/2025 9:40 AM EDT [facility] HEPATITIS A IGM Non-Reacti ve Non-Reacti ve 03/17/2025 9:40 AM EDT [facility] HEPATITIS B CORE IGM Non-Reacti ve Non-Reacti ve 03/17/2025 9:40 AM EDT [facility] ANTI HCV W/PCR REFLX Non-Reacti ve Non-Reacti ve 03/17/2025 9:40 AM EDT [facility] Comment: If recent infection suspected, recommend repeat testing (>2 months). Bimjiw-vk-upmmmf ratio is <1.0. Blood Venous blood / Unknown 03/16/2025 11:33 AM EDT 03/16/2025 11:44 AM EDT Opal Dyer OBSTETRICS GYN PHYSICIAN-CUSHION MAKER HAND LAB BLOOD ORDERABLES Samantha singletary Result Performing Organization Address City/[facility]/ZIP Co de Phone Number [facility] [address] [place] [address], [place] [phone] * X-ray chest 1 view (03/16/2025 11:03 AM EDT) Only the most recent of2 resultswithin the time period is included. Anatomical Region Laterality Modality Body, Chest N/A Computed Radiogr aphy 03/16/2025 11:1 8 AM EDT Narrative 03/16/2025 11:18 AM EDT CHEST 1 VIEW HISTORY: WBC and temperature elevation COMPARISON: 03/09/2025 FINDINGS: No focal airspace disease, pulmonary edema, pleural effusions, or pneumothorax. Normal cardiomediastinal silhouette. IMPRESSION: No acute cardiopulmonary disease. Finalized by Marky Waller MD on 03/16/2025 11:18 AM Procedure Note Marky Waller MD - 03/16/2025 CHEST 1 VIEW HISTORY: WBC and temperature elevation COMPARISON: 03/09/2025 FINDINGS: No focal airspace disease, pulmonary edema, pleural effusions, orpneumothorax. Normal cardiomediastinal silhouette. IMPRESSION: No acute cardiopulmonary disease. Finalized by Marky Waller MD on 03/16/2025 11:18 AM Opal Dyer APRN-[place] IMG DIAGNOSTIC IMAGING OR DERABLES Final Result * Blood culture #2 (03/16/2025 8:52 AM EDT) Only the most recent of2 resultswithin the time period is included. CULTURE RESULTS NO GROWTH 5 DAYS 03/21/2025 10:01 AM EDT [facility] Blood Venous blood / Unknown Venipuncture / Unknown 03/16/2025 8:52 AM EDT 03/16/2025 9:12 AM EDT us Opal Dyer APRN-CUSHION MAKER HAND MICROBIOLOGY - GENERAL OR DERABLES Final Result [facility] [address] [place] [address], [place] [phone] * (ABNORMAL) Procalcitonin (03/16/2025 6:58 AM EDT) PROCALCITONIN 0.08(H) <0.05 ng/mL 03/16/2025 11:33 AM EDT [facility] Blood Venous blood / Unknown Venipuncture / Unknown 03/16/2025 6:58 AM EDT 03/16/2025 7:32 AM EDT Narrative [facility] - 03/16/2025 11:33 AM EDT <0.50 ng/mL - Low risk of severe sepsis and/or septic shock. <2.00 ng/mL - Recommend retesting within 6-24 hours. >2.00 ng/mL - High risk of sepsis and/or septic shock. Opal Dyer OBSTETRICS GYN PHYSICIAN-CUSHION MAKER HAND LAB BLOOD ORDERABLES Samantha hayder Result [facility] [address] [place] [address], * Ionized magnesium (03/15/2025 12:32 AM EDT) IONIZED MAGNESIUM 0.54 0.45 - 0.74 mmol/L 03/15/2025 12:53 AM EDT [facility] Blood Venous blood / Unknown Venipuncture / Unknown 03/15/2025 12:32 AM EDT 03/15/2025 12:43 AM EDT Mey Cooper MD LAB BLOOD ORDERABLES Final Result Performing Organization Address City/[facility]/ZIP Co de Phone Number [facility] [address] [place] [address], [place] [phone] * Potassium (03/15/2025 12:31 AM EDT) POTASSIUM 4.5 3.5 - 5.0 mmol/L 03/15/2025 1:12 AM EDT [facility] Blood Venous blood / Unknown Venipuncture / Unknown 03/15/2025 12:31 AM EDT 03/15/2025 12:43 AM EDT Mey Cooper MD LAB BLOOD ORDERABLES Final Result [facility] [address] [place] [address], [place] [phone] * Protime & INR (03/14/2025 8:03 AM EDT) Only the most recent of2 resultswithin the time period is included. PROTIME 12.7 9.8 - 13.2 sec 03/14/2025 9:22 AM EDT [facility] INR 1.1 0.9 - 1.2 03/14/2025 9:22 AM EDT [facility] Blood Venous blood / Unknown Venipuncture / Unknown 03/14/2025 8:03 AM EDT 03/14/2025 8:40 AM EDT True Arriaga MD LAB BLOOD ORDERABLES Final Resu lt [facility] [address] [place] [address], * Vitamin D 25 hydroxy (03/13/2025 5:38 AM EDT) Only the most recent of2 resultswithin the time period is included. VITAMIN D 25 HYD TOT 50.6 30.0 - 100.0 ng/mL 03/13/2025 1:10 PM EDT [facility] Blood Venous blood / Unknown Venipuncture / Unknown 03/13/2025 5:38 AM EDT 03/13/2025 6:20 AM EDT Narrative [facility] - 03/13/2025 1:10 PM EDT Vitamin D status 25 [place] Vitamin D Deficiency <20 ng/mL Insufficiency 20-29 ng/mL Sufficiency 30-100 ng/mL Toxicity >100 ng/mL NOTE: A pediatric reference range has not been established by the laser technician of this kit. The [place] [employer] recommends a Vitamin D level of = or >20ng/mL in infants and children. Opal Dyer OBSTETRICS GYN PHYSICIAN-CUSHION MAKER HAND LAB BLOOD ORDERABLES Samantha singletary Result [facility] [address] [place] [address], * (ABNORMAL) Myoglobin, serum (03/13/2025 5:38 AM EDT) SERUM MYOGLOBIN 7.5(L) 14.3 - 65.8 ng/mL 03/13/2025 1:12 PM EDT [facility] Blood Venous blood / Unknown Venipuncture / Unknown 03/13/2025 5:38 AM EDT 03/13/2025 6:20 AM EDT Opal Dyer OBSTETRICS GYN PHYSICIAN-[employer] LAB BLOOD ORDERABLES Samantha singletary Result Performing Organization Address City/[facility]/ZIP Co de Phone Number [facility] [address] [place] [address], * (ABNORMAL) CK Total (03/13/2025 5:38 AM EDT) CPK <10(L) 24 - 170 U/L 03/13/2025 1:12 PM EDT [facility] Blood Venous blood / Unknown Venipuncture / Unknown 03/13/2025 5:38 AM EDT 03/13/2025 6:20 AM EDT Opal Monterotylerbalwinder OBSTETRICS GYN PHYSICIANQuero Rock LAB BLOOD ORDERABLES Samantha singletary Result [facility] [address] [place] [address], * (ABNORMAL) Bedside Glucose *Place/Obtain serum glucose if >500 per glucometer. (03/12/2025 4:42 PM EDT) Only the most recent of4 resultswithin the time period is included. Bedside Glucose (POC) 113(H) 65 - 99 mg/dL 03/12/2025 4:43 PM EDT [facility] arterial/capilla ry 03/12/2025 4:42 PM EDT 03/12/2025 4:43 PM EDT us Mey Cooper MD POINT OF CARE TEST ORDERAB LES Final Result [facility] [address] [place] [address], [place] * Echo complete W/O contrast (03/11/2025 4:24 PM EDT) LVOT stroke volume 64.09 ml XCELERA LV Systolic Volume 33.10 mL XCELERA EF 60 % XC[facility]A FS 40 28 - 44 % [facility] LV Diastolic Volume 81.90 mL [facility] LVIDd 4.20 4.33 - 6.02 cm [facility]ERA LVIDs 2.50 2.56 - 3.88 cm XCELERA IVS 0.90 0.6 - 1.1 cm XCELERA PW 0.90 0.6 - 1.1 cm [facility]A LVOT diameter 2.00 cm [facility]A TDI 8.81 cm/s [facility]A MV TDI E' (medial) 5.77 cm/s [facility] LA Volume Index 25.8 mL/m2 [facility] E/A ratio 0.61 XCELERA E wave deceleration time 257.00 msec [facility] MV Peak E Kanika 49.00 cm/s XCELERA MV Peak A Kanika 80.50 cm/s [facility]A LA size 3.50 cm [facility]ERA Aortic root 3.40 cm [facility] LA volume 48.00 cm3 [facility] RV diastolic dimension (basal) 32.0 mm [facility] RVID d 3.2 cm [facility] TAPSE 2.57 cm [facility]CELERA AV peak kanika 143.00 cm/s [facility] LVOT peak kanika 1.00 m/s [facility] AV VTI 29.40 cm X[facility]A LVOT peak VTI 20.40 cm XCELERA AV mean gradient 4.00 mmHg XC[facility]A AV peak gradient 8.18 mmHg XCELERA AV valve area 2.18 [facility]A Valve area - Index 1.2 [facility]A MV pressure 1/2 time 75.00 ms XCELERA MV valve area p 1/2 method 2.93 cm2 XC[facility]A TR Peak Kanika 1.7 m/s [facility]ELERA TR peak gradient 11.16 mmHg [facility]A PV mean gradient 2.00 mmHg X[facility]A PV peak gradient 2.97 mmHg [facility]A LV ESV A2C 45.30 mL [facility] LV ESV A4C 49.40 mL [facility] LV RWT 2D 42.86 [facility] Echo EF Estimated 60 % [facility] AV Velocity Ratio 0.69 [facility] Left Ventricle Mass 118.16519 [id number] 9 g [facility]A Interventricular Septum Diastolic Thickness by 2D 9 cm [facility]A Est. RA pressure 3 mmHg [facility] RA area 13.9 cm2 [facility] RV Peak Systolic Pressure 15 mmHg X[facility]A ZLVIDS -1.83 XCEL[facility]A ZLVIDD -1.95 [facility] Energy loss index 16.70 [facility] Anatomical Region Laterality Modality Chest N/A Ultrasound Narrative 03/11/2025 4:58 PM EDT Left Ventricle: Left ventricle appears normal in size. Systolic function is normal with an ejection fraction of 55-60%. The quantitative EF by 2D Slaughter biplane is 60%. Grade I diastolic dysfunction (impaired relaxation) is present. Lateral E' is 8.81 cm/s. Medial E' is 5.77 cm/s. Left Ventricle Left ventricle appears normal in size. Wall thickness is normal. Systolic function is normal with an ejection fraction of 55-60%. The quantitative EF by 2D Slaughter biplane is 60%. No obvious regional wall motion abnormalities. Grade I diastolic dysfunction (impaired relaxation) is present. Lateral E' is 8.81 cm/s. Medial E' is 5.77 cm/s. Right Ventricle Right ventricular size appears normal. The right ventricular basal diameter is 32.0 mm. Normal tricuspid annular plane systolic excursion. Normal systolic excursion velocity by TDI (>9.5 cm/s). Left Atrium Left atrium volume index is normal. The left atrial volume index is 25.8 mL/m2. There is no obvious interatrial septum shunt. . Right Atrium Right atrium is normal in size. The right atrial area is 13.9 cm2. IVC/SVC The right atrial pressure is estimated at 3 mmHg. There is normal collapse with deep inspiration. Mitral Valve The leaflets are mildly thickened. There is no regurgitation or stenosis. Tricuspid Valve Tricuspid valve appears to be normal. There is trace to mild regurgitation. There is no evidence of tricuspid valve stenosis. RVSP calculated at 15 mmHg. RVSP is based on RA pressure of 3 mmHg. Aortic Valve Probable trileaflet aortic valve. There is moderate sclerosis. There is trace regurgitation. There is no evidence of aortic valve stenosis. Pulmonic Valve The pulmonic valve was not well visualized. There is no regurgitation or stenosis. The peak gradient is 2.97 mmHg. The mean gradient is 2.00 mmHg. Ascending Aorta The aortic root is normal in size. Pericardium The pericardium has a fat pad. Study Details A complete echo was performed using complete 2D, color flow Doppler and spectral Doppler. Overall the study quality was adequate. The study was difficult due to patient's body habitus and unable to lay left lateral. BP 129/72 Wall Scoring Baseline Score Index: 1.00 The left ventricular wall motion is normal. Roldan Horowitz OBSTETRICS GYN PHYSICIAN-CUSHION MAKER HAND CV ECHO ORDERABLES Final Result * MR thoracic spine without contrast (03/11/2025 12:56 PM EDT) Anatomical Region Laterality Modality MSK, Neuro, Spine, T-spine, Spine Covera N/A Magnetic Resonance 03/11/2025 1:02 PM EDT Narrative 03/11/2025 1:21 PM EDT MR THORACIC SPINE WO CONT HISTORY: bilateral lower extremity weakness. TECHNIQUE: Multiplanar multisequence MR of the thoracic spine was performed without intravenous contrast. COMPARISON: None. FINDINGS: L1 fracture deformity, as reported separately. No suspicious bone marrow replacing process throughout the thoracic spine. No robust bone marrow edema. Several scattered benign vertebral body hemangiomas [T2, T3, T7, T8]. No acute thoracic fracture deformity. No substantial listhesis. Cord visualized from the lower cervical spine through the conus, terminating at L1. No thoracic cord compression, morphologic distortion or convincing thoracic cord signal change. No high-grade thecal sac or neural foraminal stenosis. IMPRESSION: 1. No acute thoracic spine findings. No clear etiology to account for reported lower extremity weakness.. Finalized by Philippe Del Toro MD on 03/11/2025 1:21 PM Procedure Note Philippe Del Toro MD - 03/11/2025 MR THORACIC SPINE WO CONT HISTORY: bilateral lower extremity weakness. TECHNIQUE: Multiplanar multisequence MR of the thoracic spine wasperformed without intravenous contrast. COMPARISON: None. FINDINGS: L1 fracture deformity, as reported separately. No suspicious bone marrowreplacing process throughout the thoracic spine. No robust bone marrowedema. Several scattered benign vertebral body hemangiomas [T2, T3, T7,T8]. No acute thoracic fracture deformity. No substantial listhesis. Cordvisualized from the lower cervical spine through the conus, terminating at L1. Nothoracic cord compression, morphologic distortion or convincing thoraciccord signal change. No high-grade thecal sac or neural foraminal stenosis. IMPRESSION: 1. No acute thoracic spine findings. No clear etiology to account forreported lower extremity weakness.. Finalized by Philippe Del Toro MD on 03/11/2025 1:21 PM us Maribel Garg OBSTETRICS GYN PHYSICIAN-CUSHION MAKER HAND IMG MRI ORDERABLES Samantha singletary Result * MR lumbar spine without contrast (03/11/2025 12:56 PM EDT) Anatomical Region Laterality Modality MSK, Neuro, Spine, L-spine, Spine Covera N/A Magnetic Resonance 03/11/2025 12:5 9 PM EDT Narrative 03/11/2025 1:19 PM EDT LUMBAR SPINE MRI WITHOUT CONTRAST History: Lower extremity weakness, progressive. Fracture. Comparison: None. Technique: Multiplanar multisequence MR imaging of the lumbar spine was performed without contrast. Findings: Superior endplate depression of L1, eccentric to the right, 25% height loss, associated edema. No suspicious bone marrow replacing process. Transitional lumbosacral anatomy, partial sacralization of L5. Conus terminates at L1, no distal cord signal change. T12-L1:Disc bulge. Minimal thecal sac stenosis. L1-L2:Disc bulge. Minimal thecal sac and neural foraminal stenosis. L2-L3:Disc bulge with marginal disc osteophyte extending into the foraminal and extra foraminal regions. Ligamentum flavum thickening. Mild thecal sac stenosis. Mild bilateral neural foraminal stenosis. L3-L4:Disc bulge, marginal disc osteophyte extends into the right greater than left foraminal and extra foraminal regions. Ligamentum flavum thickening. Moderate thecal sac stenosis. Xhjg-qf-zuskekcy right, mild left, neural foraminal stenosis. L4-L5:Disc bulge, marginal disc osteophyte extends into the foraminal and extra foraminal regions. Suspect prior right hemilaminectomy, recommend ligamentum flavum thickening. Kyxt-ka-feiwxgrp bilateral neural foraminal stenosis. L5-S1:Minimal thecal sac and neural frontal stenosis. Partial fatty replacement, volume loss within the lower lumbar paraspinal musculature Urinary bladder distention.. Circumscribed T2 hypointense renal observation. Additional microcysts within the kidneys. Impression: 1. Acute superior endplate fracture of L1, eccentric to the right, up to 25% height loss. 2. No high-grade thecal sac stenosis. Multilevel degenerative changes, as detailed. 3. Urinary bladder distention, correlate for clinical signs of urinary retention. 4. Subtle circumscribed T2 hypointense renal observations, these are indeterminate, consistent with simple cysts. Differential includes papillary renal cell carcinoma or hemorrhagic/proteinaceous cyst. Abdomen MR without and with contrast could more definitively assess, as appropriate. Finalized by Philippe Del Toro MD on 03/11/2025 1:19 PM Procedure Note Philippe Del Toro MD - 03/11/2025 LUMBAR SPINE MRI WITHOUT CONTRAST History: Lower extremity weakness, progressive. Fracture. Comparison: None. Technique: Multiplanar multisequence MR imaging of the lumbar spine wasperformed without contrast. Findings: Superior endplate depression of L1, eccentric to the right, 25% heightloss, associated edema. No suspicious bone marrow replacing process. Transitional lumbosacralanatomy, partial sacralization of L5. Conus terminates at L1, no distal cord signal change. T12-L1:Disc bulge. Minimal thecal sac stenosis. L1-L2:Disc bulge. Minimal thecal sac and neural foraminal stenosis. L2-L3:Disc bulge with marginal disc osteophyte extending into theforaminal and extra foraminal regions. Ligamentum flavum thickening. Mildthecal sac stenosis. Mild bilateral neural foraminal stenosis. L3-L4:Disc bulge, marginal disc osteophyte extends into the right greaterthan left foraminal and extra foraminal regions. Ligamentum flavumthickening. Moderate thecal sac stenosis. Fvhs-lw-aehdupfv right, mildleft, neural foraminal stenosis. L4-L5:Disc bulge, marginal disc osteophyte extends into the foraminal andextra foraminal regions. Suspect prior right hemilaminectomy, recommendligamentum flavum thickening. Onte-ri-rmogkysp bilateral neural foraminalstenosis. L5-S1:Minimal thecal sac and neural frontal stenosis. Partial fatty replacement, volume loss within the lower lumbar paraspinalmusculature Urinary bladder distention.. Circumscribed T2 hypointense renalobservation. Additional microcysts within the kidneys. Impression: 1. Acute superior endplate fracture of L1, eccentric to the right, up to25% height loss. 2. No high-grade thecal sac stenosis. Multilevel degenerative changes, asdetailed. 3. Urinary bladder distention, correlate for clinical signs of urinaryretention. 4. Subtle circumscribed T2 hypointense renal observations, these areindeterminate, consistent with simple cysts. Differential includespapillary renal cell carcinoma or hemorrhagic/proteinaceous cyst. AbdomenMR without and with contrast could more definitively assess, asappropriate. Finalized by Philippe Del Toro MD on 03/11/2025 1:19 PM Roldan Horowitz OBSTETRICS GYN PHYSICIAN-CUSHION MAKER HAND IMG MRI ORDERABLES Final Result * MR cervical spine without contrast (03/11/2025 12:55 PM EDT) Anatomical Region Laterality Modality MSK, Neuro, Spine, C-spine, Spine Covera N/A Magnetic Resonance 03/11/2025 12:5 9 PM EDT Narrative 03/11/2025 1:06 PM EDT MR CERVICAL SPINE WO CONT: 03/11/2025 PROVIDED HISTORY: * 70 years old Female * bilateral lower extremity weakness COMPARISON: 03/08/2025 TECHNIQUE: Multiplanar multisequence cervical spine protocol MR performed. Examination performed without the administration of intravenous contrast. FINDINGS: Mild straightening of the cervical lordosis. No evidence of traumatic listhesis. Vertebral body heights and facet joint alignment are relatively preserved. Craniocervical junction is relatively intact. No acute abnormality in the visualized intracranial compartment. Cervical vascular flow voids are relatively preserved. Incidental note, medialization of the carotid arterial vasculature bilaterally. No focal cord signal abnormality. C2-C3: No significant spinal canal or foraminal stenosis. C3-C4: Central disc osteophyte complex. No significant spinal canal foraminal stenosis. C4-C5: Disc osteophyte complex with left central protrusion component, uncovertebral spurring. Mild spinal canal stenosis. No significant right and mild left foraminal stenosis. C5-C6: No significant spinal canal or foraminal stenosis. C6-C7: No significant spinal canal or foraminal stenosis. C7-T1: No significant spinal canal or foraminal stenosis. No significant abnormality of the paravertebral or prevertebral soft tissues. IMPRESSION: 1. No cord signal abnormality. 2. Mild multilevel spondylotic changes, without evidence of high-grade spinal canal or foraminal stenosis. Finalized by Filemon Hartman MD on 03/11/2025 1:06 PM Procedure Note Filemon Hartman MD - 03/11/2025 MR CERVICAL SPINE WO CONT: 03/11/2025 PROVIDED HISTORY: * 70 years old Female * bilateral lower extremity weakness COMPARISON: 03/08/2025 TECHNIQUE: Multiplanar multisequence cervical spine protocol MR performed.Examination performed without the administration of intravenouscontrast. FINDINGS: Mild straightening of the cervical lordosis. No evidence of traumaticlisthesis. Vertebral body heights and facet joint alignment are relatively preserved.Craniocervical junction is relatively intact. No acute abnormality in the visualized intracranial compartment. Cervicalvascular flow voids are relatively preserved. Incidental note,medialization of the carotid arterial vasculature bilaterally. No focal cord signal abnormality. C2-C3: No significant spinal canal or foraminal stenosis. C3-C4: Central disc osteophyte complex. No significant spinal canalforaminal stenosis. C4-C5: Disc osteophyte complex with left central protrusion component,uncovertebral spurring. Mild spinal canal stenosis. No significant rightand mild left foraminal stenosis. C5-C6: No significant spinal canal or foraminal stenosis. C6-C7: No significant spinal canal or foraminal stenosis. C7-T1: No significant spinal canal or foraminal stenosis. No significant abnormality of the paravertebral or prevertebral softtissues. IMPRESSION: 1. No cord signal abnormality. 2. Mild multilevel spondylotic changes, without evidence of high-gradespinal canal or foraminal stenosis. Finalized by Filemon Hartman MD on 03/11/2025 1:06 PM us Maribel Garg OBSTETRICS GYN PHYSICIAN-CUSHION MAKER HAND IMG MRI ORDERABLES Samantha hayder Result * MR brain without contrast (03/11/2025 12:55 PM EDT) Anatomical Region Laterality Modality Neuro, Head, Head and Neck, Neuro Covera N/A Magnetic Resonance 03/11/2025 12:5 6 PM EDT Narrative 03/11/2025 1:23 PM EDT STUDY: MRI brain without contrast CLINICAL HISTORY: cva; cva r/o COMPARISON: None. TECHNIQUE: Routine multiplanar multisequence MR imaging of the brain was performed without contrast. FINDINGS: No abnormal restricted diffusion. No ventricular outflow obstruction. No acute intracranial hemorrhage. Mild global parenchymal volume loss. Minimal burden white matter FLAIR hyperintensities. Unremarkable intracranial vascular flow voids. Unremarkable visualized suprahyoid neck, scalp soft tissues. Hyperostosis frontalis interna. Edentulous maxilla. IMPRESSION: 1. No acute intracranial abnormality. No clear etiology to account for weakness or falls. Finalized by Philippe Del Toro MD on 03/11/2025 1:23 PM Procedure Note Philippe Del Toro MD - 03/11/2025 STUDY: MRI brain without contrast CLINICAL HISTORY: cva; cva r/o COMPARISON: None. TECHNIQUE: Routine multiplanar multisequence MR imaging of the brain wasperformed without contrast. FINDINGS: No abnormal restricted diffusion. No ventricular outflow obstruction. Noacute intracranial hemorrhage. Mild global parenchymal volume loss. Minimal burden white matter FLAIR hyperintensities. Unremarkable intracranial vascular flow voids. Unremarkable visualized suprahyoid neck, scalp soft tissues. Hyperostosisfrontalis interna. Edentulous maxilla. IMPRESSION: 1. No acute intracranial abnormality. No clear etiology to account forweakness or falls. Finalized by Philippe Del Toro MD on 03/11/2025 1:23 PM Roldan Horowitz OBSTETRICS GYN PHYSICIAN-CUSHION MAKER HAND IMG MRI ORDERABLES Final Result * Lamotrigine, S (03/10/2025 10:41 AM EDT) Pathologist [facility] LAMOTRIGINE, S 3.2 3.0 - 15.0 mcg/mL 03/12/2025 3:16 PM EDT [facility] copygram Comment: ADDITIONAL INFORMATION This test was developed and its performance characteristics determined by [facility] in a manner consistent with CLIA requirements. This test has not been cleared or approved by the U.S. Food and Drug Administration. Test Performed by: [facility] [address] [place] [address] Procurement Services Manager: Haile Bianchi Ph.D.; CLIA# [id number] Blood Venous blood / Unknown Venipuncture / Unknown 03/10/2025 10:41 AM EDT 03/10/2025 10:48 AM EDT Chyna Bruno MD LAB BLOOD ORDERABLES Final Re sult [address] * Valproic Acid, Free, S (03/10/2025 10:41 AM EDT) Pathologist [facility] VALPROIC ACID, FREE 7 5 - 25 mcg/mL 03/12/2025 3:38 PM EDT [facility] copygram Comment: Test Performed by: [facility] [address] [place] [address] Procurement Services Manager: Haile Bianchi Ph.D.; CLIA# [id number] Blood Venous blood / Unknown Venipuncture / Unknown 03/10/2025 10:41 AM EDT 03/10/2025 10:48 AM EDT us Chyna Bruno MD LAB BLOOD ORDERABLES Final Re sult [facility] [address] [place] [address], [place] * Folate (03/10/2025 10:41 AM EDT) Pathologist [facility] FOLIC ACID 19.9 >5.8 ng/mL 03/10/2025 10:47 PM EDT [facility] Blood Venous blood / Unknown Venipuncture / Unknown 03/10/2025 10:41 AM EDT 03/10/2025 10:49 AM EDT us Chyna Bruno MD LAB BLOOD ORDERABLES Final Re sult [facility] [address] [place] [address], * Vitamin B12 (03/10/2025 10:41 AM EDT) [facility] VITAMIN B12 731 180 - 914 pg/mL 03/10/2025 10:48 PM EDT [facility] Blood Venous blood / Unknown Venipuncture / Unknown 03/10/2025 10:41 AM EDT 03/10/2025 10:49 AM EDT Chyna Bruno MD LAB BLOOD ORDERABLES Final Re sult [facility] [address] [place] [address], * (ABNORMAL) Lipid profile (03/10/2025 5:10 AM EDT) [facility] CHOLESTEROL 151 150 - 200 mg/dL 03/10/2025 9:36 AM EDT [facility] TRIGLYCERIDE 149 27 - 150 mg/dL 03/10/2025 9:36 AM EDT [facility] HDL CHOLESTEROL 24(L) >39 mg/dL 9:36 AM EDT [facility] Comment: HDL <40 mg/dL - High Risk HDL > or = 40mg/dL- Desirable HDL >60 mg/dL - Negative Risk LDL (CALC) 97 <130 mg/dL 03/10/2025 9:36 AM EDT [facility] Comment: LDL <100 mg/dL - Desirable LDL >160 mg/dL - High Risk CHOLESTEROL:HDL 6.3(H) 1.0 - 5.0 9:36 AM EDT [facility] VERY LOW LIPOPROTEIN 30 0 - 30 mg/dL 03/10/2025 9:36 AM EDT [facility] Blood Venous blood / Unknown Venipuncture / Unknown 03/10/2025 5:10 AM EDT 03/10/2025 5:16 AM EDT Roldan Horowitz OBSTETRICS GYN PHYSICIAN-CUSHION MAKER HAND LAB BLOOD ORDERABLES Samantha l Result [facility] [address] [place] [address], [place] [phone] * Troponin I, High Sensitivity 1 Hour (03/09/2025 3:30 PM EDT) Only the most recent of2 resultswithin the time period is included. TROPONIN I, HIGH SENSITIVITY 4 <16 ng/L 03/09/2025 4:02 PM EDT [facility] Blood Venous blood / Unknown Venipuncture / Unknown 03/09/2025 3:30 PM EDT 03/09/2025 3:32 PM EDT Wild De Los Santos DO LAB BLOOD ORDERABLES Final Resul t [facility] [address] [address], [place] * CT angiogram carotid (03/09/2025 2:56 PM EDT) Anatomical Region Laterality Modality Neuro, Neck, Vascular, Neuro Covera N/A Computed Tomography 03/09/2025 3:03 PM EDT Narrative 03/09/2025 3:07 PM EDT CLINICAL INFORMATION: Slurred speech. Stroke. Neurologic deficit. COMPARISON: None PROCEDURE: CT angiogram of the neck with IV contrast. Sagittal and coronal reformatted images with 3-D Maximum intensity projection reconstructions constructed under concurrent physician supervision on a independent workstation for evaluation of carotid and vertebral arteries. Automated exposure control was utilized. The [place] Symptomatic carotid Endarterectomy Trial (NASCET) method for calculating the degree of stenosis was utilized for stenosis measurements. 3-D reformatted images confirm the source data findings. stenosis is calculated as compared to the distal lumen of the ICA (NASCET). All CT scans at this facility dose modulation, iterative reconstruction, and/or weight based dosing when appropriate to reduce radiation dose to as low as reasonably achievable. FINDINGS: No acute findings at the partially visualized aortic arch. Three-vessel branching pattern. Subclavian arteries are patent. The vertebral arteries originate from the subclavian arteries and are normal in course and caliber. The common carotid arteries are within normal limits. Normal carotid artery bifurcations. There is atherosclerotic plaque at the proximal right internal carotid artery with less than 50% stenosis. The remainder of the cervical segments internal carotid arteries are normal in course and caliber without significant stenosis. No aneurysm or dissection. No acute findings at the partially visualized lung apices. No acute findings in the soft tissues. IMPRESSION: 1. No acute findings. No significant carotid or vertebral artery stenosis. 2. Mild atherosclerotic plaque at the proximal right internal carotid artery with less than 50% stenosis. Finalized by Mumtaz Fox MD on 03/09/2025 3:07 PM Procedure Note Mumtaz Fox MD - 03/09/2025 CLINICAL INFORMATION: Slurred speech. Stroke. Neurologic deficit. COMPARISON: None PROCEDURE: CT angiogram of the neck with IV contrast. Sagittal andcoronal reformatted images with 3-D Maximum intensity projectionreconstructions constructed under concurrent physician supervision on [facility] workstation for evaluation of carotid and vertebral arteries.Automated exposure control was utilized. The [place] Symptomatic carotidEndarterectomy Trial (NASCET) method for calculating the degree ofstenosis was utilized for stenosis measurements. 3-D reformatted images confirm the source data findings. stenosis is calculated as compared to the distal lumen of the ICA(NASCET). All CT scans at this facility dose modulation, iterativereconstruction, and/or weight based dosing when appropriate to reduceradiation dose to as low as reasonably achievable. FINDINGS: No acute findings at the partially visualized aortic arch. Three-vesselbranching pattern. Subclavian arteries are patent. The vertebral arteries originate from the subclavian arteries and arenormal in course and caliber. The common carotid arteries are within normal limits. Normal carotidartery bifurcations. There is atherosclerotic plaque at the proximal right internal carotidartery with less than 50% stenosis. The remainder of the cervical segmentsinternal carotid arteries are normal in course and caliber withoutsignificant stenosis. No aneurysm or dissection. No acute findings at the partially visualized lung apices. No acute findings in the soft tissues. IMPRESSION: 1. No acute findings. No significant carotid or vertebral arterystenosis. 2. Mild atherosclerotic plaque at the proximal right internal carotidartery with less than 50% stenosis. Finalized by Mumtaz Fox MD on 03/09/2025 3:07 PM us Wild De Los Santos DO IMG CT ORDERABLES Final Result * EKG 12 lead (03/09/2025 2:52 PM EDT) Only the most recent of2 resultswithin the time period is included. 03/09/2025 2:52 PM EDT Narrative [facility] - 03/15/2025 8:22 PM EDT us Wild De Los Santos DO ECG ORDERABLES Final Result [facility] * CT angiogram head (03/09/2025 2:51 PM EDT) Anatomical Region Laterality Modality Head, Neuro, Vascular, Head and Neck, Neuro [place] ra N/A Computed Tomography 03/09/2025 2:54 PM EDT Narrative 03/09/2025 3:[address] angiogram head with contrast History: Stroke. Neurologic deficit. Technique: CT angiogram of the head was performed following intravenous administration nonionic intravenous contrast. 3-D maximum intensity projection images generated and reviewed under concurrent physician supervision. Arterial blood flow was measured to assist the stroke clinical team in the diagnosis of large vessel occlusion in patients undergoing screening for acute ischemic stroke using Rapid AI software when clinically indicated. Automated exposure control was utilized. All CT scans at this facility dose modulation, iterative reconstruction, and/or weight based dosing when appropriate to reduce radiation dose to as low as reasonably achievable. Findings: Intracranial internal carotid arteries: Within normal limits. Anterior cerebral arteries: Within normal limits. Normal anterior communicating artery. Middle cerebral arteries: Within normal limits. Posterior communicating arteries: Within normal limits. Intracranial vertebral arteries: Within normal limits. Basilar artery: Within normal limits. Posterior cerebral arteries: Within normal limits. No large vessel intracranial arterial stenosis, occlusion, or aneurysmal dilatation. Impression: Unremarkable CTA head. Finalized by Mumtaz Fox MD on 03/09/2025 3:03 PM Procedure Note Mumtaz Fox MD - 03/09/2025 CT angiogram head with contrast History: Stroke. Neurologic deficit. Technique: CT angiogram of the head was performed following intravenousadministration nonionic intravenous contrast. 3-D maximum intensityprojection images generated and reviewed under concurrent physiciansupervision. Arterial blood flow was measured to assist the strokeclinical team in the diagnosis of large vessel occlusion in patients undergoing screening foracute ischemic stroke using Rapid AI software when clinically indicated.Automated exposure control was utilized. All CT scans at this facilitydose modulation, iterative reconstruction, and/or weight based dosing when appropriate to reduce radiation dose to as low as reasonably achievable. Findings: Intracranial internal carotid arteries: Within normal limits. Anterior cerebral arteries: Within normal limits. Normal anteriorcommunicating artery. Middle cerebral arteries: Within normal limits. Posterior communicating arteries: Within normal limits. Intracranial vertebral arteries: Within normal limits. Basilar artery: Within normal limits. Posterior cerebral arteries: Within normal limits. No large vessel intracranial arterial stenosis, occlusion, or aneurysmaldilatation. Impression: Unremarkable CTA head. Finalized by Mumtaz Fox MD on 03/09/2025 3:03 PM [facility] [place] Final Result * X-ray chest 1 view stroke (03/09/2025 2:51 PM EDT) Anatomical Region Laterality Modality Body, Chest N/A Computed Radiogr aphy 03/09/2025 3:04 PM EDT Narrative 03/09/2025 3:04 PM EDT XR CHEST 1 VIEW STROKE: 03/09/2025 2:50 PM CLINICAL INDICATION: Stroke alert TECHNIQUE: AP view the chest COMPARISON: 10/06/2024. FINDINGS: The cardiomediastinal silhouette and pulmonary vessels are within normal limits. Lungs and pleural spaces are clear. There is no pneumothorax. IMPRESSION: No acute cardiopulmonary process. Finalized by Dar ePna MD on 03/09/2025 3:04 PM Procedure Note Dar Pena MD - 03/09/2025 XR CHEST 1 VIEW STROKE: 03/09/2025 2:50 PM CLINICAL INDICATION: Stroke alert TECHNIQUE: AP view the chest COMPARISON: 10/06/2024. FINDINGS: The cardiomediastinal silhouette and pulmonary vessels are within normallimits. Lungs and pleural spaces are clear. There is no pneumothorax. IMPRESSION: No acute cardiopulmonary process. Finalized by Dar Pena MD on 03/09/2025 3:04 PM [facility] [place] S Final Result * APTT (03/09/2025 2:36 PM EDT) APTT 35 26 - 37 sec 03/09/2025 2:54 PM EDT [facility] Blood Venous blood / Unknown Venipuncture / Unknown 03/09/2025 2:36 PM EDT 03/09/2025 2:37 PM EDT us Wild De Los Santos DO LAB BLOOD ORDERABLES Final Resul t [facility] [address] [place] [address], [place] * CT brain without contrast stroke alert (03/09/2025 2:35 PM EDT) Anatomical Region Laterality Modality Neuro, Head, Head and Neck, Neuro Covera N/A Computed Tomography 03/09/2025 2:39 PM EDT Narrative 03/09/2025 2:41 PM EDT Exam: CT brain without contrast. CLINICAL HISTORY: Headache. Slurred speech. Stroke. TECHNIQUE: CT brain without intravenous contrast. All CT scans at this facility use dose modulation, iterative reconstruction, and/or weight based dosing when appropriate to reduce radiation dose to as low as reasonably achievable COMPARISON: 03/08/2025. FINDINGS: No evidence of hemorrhage. No mass or mass effect. No CT evidence of acute ischemia/infarct. The midline structures are intact, no midline shift. The ventricles and basal cisterns are unremarkable. The brainstem and cerebellum are unremarkable. The paranasal sinuses and mastoid air cells are well aerated. No acute osseous abnormality. IMPRESSION: No acute intracranial pathology by CT. Finalized by Mumtaz oFx MD on 03/09/2025 2:41 PM Procedure Note Mumtaz Fox MD - 03/09/2025 Exam: CT brain without contrast. CLINICAL HISTORY: Headache. Slurred speech. Stroke. TECHNIQUE: CT brain without intravenous contrast. All CT scans at this facility use dose modulation, iterativereconstruction, and/or weight based dosing when appropriate to reduceradiation dose to as low as reasonably achievable COMPARISON: 03/08/2025. FINDINGS: No evidence of hemorrhage. No mass or mass effect. No CT evidence of acute ischemia/infarct. The midline structures are intact, no midline shift. The ventricles and basal cisterns are unremarkable. The brainstem and cerebellum are unremarkable. The paranasal sinuses and mastoid air cells are well aerated. No acute osseous abnormality. IMPRESSION: No acute intracranial pathology by CT. Finalized by Mumtaz Fox MD on 03/09/2025 2:41 PM us Wild De Los Santos DO IMG CT ORDERABLES Final Result * Troponin I, High Sensitivity 0 Hour (03/09/2025 2:35 PM EDT) Only the most recent of2 resultswithin the time period is included. TROPONIN I, HIGH SENSITIVITY 3 <16 ng/L 03/09/2025 3:10 PM EDT [facility] Blood Venous blood / Unknown Venipuncture / Unknown 03/09/2025 2:35 PM EDT 03/09/2025 2:37 PM EDT [facility] LAB BLOOD ORDERABLES Final Resul t [facility] [address] [place] [address], * (ABNORMAL) Hemoglobin A1c (03/09/2025 2:35 PM EDT) Pathologist [facility] HEMOGLOBIN A1C 5.7(H) 4.4 - 5.6 % 03/10/2025 6:17 AM EDT [facility] Comment: ADA Guidelines Result HgbA1c Normal : less than 5.7 % Prediabetes : 5.7 % to 6.4 % Diabetes : > 6.4 % Use with caution in patients with abnormal hemoglobin variants as the half-life of red blood cells and in vivo glycation rates are affected. EST. AVERAGE GLUCOSE 117 mg/dL 03/10/2025 6:17 AM EDT [facility] Blood Venous blood / Unknown Venipuncture / Unknown 03/09/2025 2:35 PM EDT 03/09/2025 2:37 PM EDT Roldan Horowitz OBSTETRICS GYN PHYSICIAN-CUSHION MAKER HAND LAB BLOOD ORDERABLES Samantha l Result [facility] [address] [place] [address], [place] [phone] * (ABNORMAL) Liver panel (03/09/2025 2:35 PM EDT) TOTAL PROTEIN 7.6 6.0 - 8.0 g/dL 03/09/2025 3:05 PM EDT [facility] ALBUMIN 3.1(L) 3.2 - 5.3 g/dL 03/09/2025 3:05 PM EDT [facility] BILIRUBIN,TOTAL 0.5 0.3 - 1.2 mg/dL 03/09/2025 3:05 PM EDT [facility] ALKALINE PHOSPHATASE 142(H) 39 - 130 U/L 03/09/2025 3:05 PM EDT [facility] AST 34 <=41 U/L 03/09/2025 3:05 PM EDT [facility] ALT 9 <=31 U/L 03/09/2025 3:05 PM EDT [facility] BILIRUBIN,DIRECT 0.1 <=0.4 mg/dL 03/09/2025 3:05 PM EDT [facility] Blood Venous blood / Unknown Venipuncture / Unknown 03/09/2025 2:35 PM EDT 03/09/2025 2:37 PM EDT us Wild De Los Santos DO LAB BLOOD ORDERABLES Final Resul t [facility] [address] [place] [address], * (ABNORMAL) Basic Metabolic Panel (03/09/2025 2:35 PM EDT) SODIUM 138 134 - 146 mmol/L 03/09/2025 3:05 PM EDT [facility] POTASSIUM 4.0 3.5 - 5.0 mmol/L 03/09/2025 3:05 PM EDT [facility] CHLORIDE 100 98 - 109 mmol/L 03/09/2025 3:05 PM EDT [facility] CARBON DIOXIDE 28 22 - 32 mmol/L 03/09/2025 3:05 PM EDT [facility] ANION GAP 10 5 - 15 mmol/L 03/09/2025 3:05 PM EDT [facility] BLOOD UREA NITROGEN 7 5 - 27 mg/dL 03/09/2025 3:05 PM EDT [facility] CREATININE 0.77 0.40 - 1.00 mg/dL 03/09/2025 3:05 PM EDT [facility] Comment:METHOD TRACEABLE TO IDNM STANDARD GLUCOSE 131(H) 65 - 99 mg/dL 03/09/2025 3:05 PM EDT [facility] CALCIUM 8.8 8.5 - 10.5 mg/dL 03/09/2025 3:05 PM EDT [facility] EGFR Non-Race Dependent 83 >=60 ml/min/1.7 3sq.m 03/09/2025 3:05 PM EDT [facility] Comment: eGFR not reported due to non-numeric value for Creatinine. Reported eGFR is based on the CKD-EPI 2020 equation that does not use a race coefficient. Blood Venous blood / Unknown Venipuncture / Unknown 03/09/2025 2:35 PM EDT 03/09/2025 2:37 PM EDT us Wild De Los Santos DO LAB BLOOD ORDERABLES Final Resul t [facility] 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 Critical care was time spent personally by me on the following activities: Ordering and performing treatments and interventions, ordering and review of laboratory studies, ordering and review of radiographic studies, pulse oximetry, re-evaluation of patient's condition, review of old charts, blood draw for specimens, discussions with consultants and examination of patient Wild De Los Santos DO PROCEDURE/MINOR SURGICAL ORDERAB LES Final Result * ED NIHSS And Thrombolytic MD Screening (03/09/2025 2:29 PM EDT) Wild Lucas DO - 03/09/2025 2:29 PM EDT Wild De Los Santos DO 03/15/2025 8:22 PM ED NIHSS And Thrombolytic MD Screening Performed by: Wild De Los Santos DO Authorized by: Wild De Los Santos DO Time NIHSS was performed: 03/09/2025 2:32 PM Interval: Baseline LOC: 0 - Alert LOC Questions: 0 - Answers both correctly LOC Commands: 0 - Performs both tasks correctly Best Gaze: 0 - Normal horizontal movements Visual Chase: 0 - No visual field defect Facial Movements: 0 - Normal Motor Function Right Arm: 0 - No drift right arm holds for 10 seconds Motor Function Left Arm: 1 - Left arm falls before 10 seconds, does not touch bed Motor Function Right Le - Right leg falls to bed before 5 seconds Motor Function Left Le - Left leg falls to bed before 5 seconds Limb Ataxia: 1 - Ataxia in 1 limb Sensory: 0 - No sensory loss Language: 1 - Language mild aphasia Articulation: 1 - Articulation mild dysarthria Extinction or Inattention: 0 - Extinction or inattention absent Confirmed Time of Onset or Last Known Well: Date: 03/08/2025 Time: 11:47 EDT TOTAL NIHSS SCORE: 8 Do presenting disabilities interfere with lifestyle(i.e. work, hobbies, entertainment etc.?: Yes Stroke team initiated Absolute Contraindications: Onset greater than 4.5 hours - Patient not eligible for Thrombolytic. Decision for Thrombolytics: Thrombolytics will not be given based on the history and assessment of the patient. us Wild De Los Santos DO PROCEDURE/MINOR SURGICAL ORDERAB LES Final Result * (ABNORMAL) POCT Nursing Urine Macroscopic UA (03/08/2025 2:59 PM EDT) Only the most recent of2 resultswithin the time period is included. POC Urine Specific [place] 1.020 1.010, 1.015, 1.020, 1.025 03/08/2025 2:49 PM EDT [facility] POC Urine Leukocyte Esterase Small(A) Negative 03/08/2025 2:49 PM EDT [facility] POC Urine Nitrite Negative Negative 03/08/2025 2:49 PM EDT [facility] POC Urine pH 7.0 5.0, 6.0, 6.5, 7.0, 7.5, 8.0, 8.5, 5.5 03/08/2025 2:49 PM EDT [facility] POC Urine Protein Negative Negative 03/08/2025 2:49 PM EDT [facility] POC Urine Glucose Negative Negative 03/08/2025 2:49 PM EDT [facility] POC Urine Ketones Negative Negative 03/08/2025 2:49 PM EDT [facility] POC Urine Urobilinogen 0.2 E.U./dL 03/08/2025 2:49 PM EDT [facility] POC Urine Bilirubin Negative Negative 03/08/2025 2:49 PM EDT [facility] POC Urine Blood/HGB Negative Negative 03/08/2025 2:49 PM EDT [facility] Urine 03/08/2025 2:59 PM EDT 03/08/2025 2:49 PM EDT us Pawan Trinidad MD POINT OF CARE TEST ORDERABLE S Final Result [facility] [address] [address], * Extra Urine Solomon (03/08/2025 2:50 PM EDT) Extra Tube Auto Resulted 03/08/2025 4:02 PM EDT [facility] Urine Urine specimen collection, clean catch / Unknown 03/08/2025 2:50 PM EDT 03/08/2025 3:05 PM EDT us Pawan Trinidad MD URINE ORDERABLES Final Resul t Performing Organization Address [facility] Phone Number [address] [place] [address], [place] * Extra Urine Culture (03/08/2025 2:50 PM EDT) Extra Tube Auto Resulted 03/08/2025 4:02 PM EDT [facility] Urine Urine specimen collection, clean catch / Unknown 03/08/2025 2:50 PM EDT 03/08/2025 3:05 PM EDT us Pawan Trinidad MD URINE ORDERABLES Final Resul t Performing Organization Address [facility] Phone Number [address] [place] [address], [place] * Extra Urine (03/08/2025 2:50 PM EDT) Extra Tube Auto Resulted 03/08/2025 4:02 PM EDT [facility] Urine Urine specimen collection, clean catch / Unknown 03/08/2025 2:50 PM EDT 03/08/2025 3:05 PM EDT us Pawan Trinidad MD URINE ORDERABLES Final Resul t Performing Organization Address [facility] Phone Number [address] [place] [address], [place] * X-ray spine lumbar 2 or 3 views (03/08/2025 12:28 PM EDT) Anatomical Region Laterality Modality MSK, Neuro, Spine, L-spine N/A Compu elo Radiography 03/08/2025 12:3 9 PM EDT Narrative 03/08/2025 12:41 PM EDT EXAM: XR SPINE LUMBAR 2 OR 3 VWS CLINICAL INFORMATION: pain fall. COMPARISON: CT of the lumbar spine dated 01/21/2025 FINDINGS: The lumbar spine maintains a normal lordotic curvature. There is mild compression involving superior endplate of L1, new since a CT dated 01/21/2025 and suspected acute. There is no retropulsion into the spinal canal. The remaining lumbar vertebral body heights are radiographically normal. There are mild degenerative changes of the lumbar spine. IMPRESSION: 1. Minimal compression involving superior endplate of L1, new since 01/21/2025 and suspected acute. There is no evidence for retropulsion into the spinal canal. Finalized by Kaden Delgado MD on 03/08/2025 12:41 PM Procedure Note Kaden Delgado MD - 03/08/2025 EXAM: XR SPINE LUMBAR 2 OR 3 VWS CLINICAL INFORMATION: pain fall. COMPARISON: CT of the lumbar spine dated 01/21/2025 FINDINGS: The lumbar spine maintains a normal lordotic curvature. There is mildcompression involving superior endplate of L1, new since a CT date01/21/2025 and suspected acute. There is no retropulsion into the spinalcanal. The remaining lumbar vertebral body heights are radiographicallynormal. There are mild degenerative changes of the lumbar spine. IMPRESSION: 1. Minimal compression involving superior endplate of L1, new since01/21/2025 and suspected acute. There is no evidence for retropulsion intothe spinal canal. Finalized by Kaden Delgado MD on 03/08/2025 12:41 PM Pawan Trinidad MD IMG DIAGNOSTIC IMAGING ORDER JOSE MARIA Final Result * X-ray hip left 2-3 views with or without pelvis (03/08/2025 12:28 PM EDT) Anatomical Region Laterality Modality Lower Extremities, MSK, Hip Left Comp uted Radiography 03/08/2025 12:3 2 PM EDT Narrative 03/08/2025 12:33 PM EDT XR HIP LT 2-3 VIEWS W OR WO PELVIS CLINICAL INFORMATION: pain fall. COMPARISON: 01/21/2025. IMPRESSION: * No fracture. Mild degenerative changes. If there is persistent pain or the patient cannot bear weight recommend MRI. Finalized by Luis Alfredo Fields MD on 03/08/2025 12:33 PM Procedure Note Luis Alfredo Fields MD - 03/08/2025 XR HIP LT 2-3 VIEWS W OR WO PELVIS CLINICAL INFORMATION: pain fall. COMPARISON: 01/21/2025. IMPRESSION: * No fracture. Mild degenerative changes. If there is persistent pain orthe patient cannot bear weight recommend MRI. Finalized by Luis Alfredo Fields MD on 03/08/2025 12:33 PM Pawan Trinidad MD IM DIAGNOSTIC IMAGING ORDER JOSE MARIA Final Result * CT facial bones without contrast (03/08/2025 12:24 PM EDT) Anatomical Region Laterality Modality Neuro, Face, Neuro Covera N/A Comput ed Tomography 03/08/2025 12:3 1 PM EDT Narrative 03/08/2025 12:34 PM EDT 03/08/2025 12:18 PM:CT FACIAL BONES WO CONT INDICATION: abrasion facial injury COMPARISON: 06/26/2024 TECHNIQUE/PROTOCOL: Standard noncontrast images through the facial bones and sinuses obtained with reformatted coronal and sagittal images. All CT scans at this facility use dose modulation, iterative reconstruction, and/or weight based dosing when appropriate to reduce radiation dose to as low as reasonably achievable. FINDINGS: No mandibular, maxillofacial, or orbital fractures are identified. Orbits are symmetric. No appreciable soft tissue abnormalities. Paranasal sinuses are clear Temporal Bone and Mastoid Air Cells: Normal Included portions of the brain: See separately dictated CT of the head IMPRESSION: No acute facial bone fractures Finalized by Xiang Lee on 03/08/2025 12:34 PM Procedure Note Xiang Lee MD - 03/08/2025 03/08/2025 12:18 PM:CT FACIAL BONES WO CONT INDICATION: abrasion facial injury COMPARISON: 06/26/2024 TECHNIQUE/PROTOCOL: Standard noncontrast images through the facial bonesand sinuses obtained with reformatted coronal and sagittal images. All CT scans at this facility use dose modulation, iterativereconstruction, and/or weight based dosing when appropriate to reduceradiation dose to as low as reasonably achievable. FINDINGS: No mandibular, maxillofacial, or orbital fractures are identified. Orbitsare symmetric. No appreciable soft tissue abnormalities. Paranasal sinuses are clear Temporal Bone and Mastoid Air Cells: Normal Included portions of the brain: See separately dictated CT of the head IMPRESSION: No acute facial bone fractures Finalized by Xiang Lee on 03/08/2025 12:34 PM us Pawan Trinidad MD IMG CT ORDERABLES Final Resu lt * CT cervical spine without contrast (03/08/2025 12:24 PM EDT) Only the most recent of2 resultswithin the time period is included. Anatomical Region Laterality Modality MSK, Neuro, Spine, C-spine, Spine Covera N/A Computed Tomography 03/08/2025 12:3 8 PM EDT Narrative 03/08/2025 12:41 PM EDT History: Pain after trauma Technique: Thin axial images through the cervical spine were obtained. The study was supplemented by sagittal and coronal reconstructed images. Automated exposure control was utilized. Comparison: 01/21/2025 Findings: The vertebral heights and disc spaces are well-maintained. There are mild degenerative changes. There is no evidence for an acute osseous abnormality. The odontoid is intact. The groundglass opacity in the left upper lobe described on the previous examination was not included on the current imaging. Impression: CT cervical spine negative for an acute fracture. Finalized by Wild Negrete MD on 03/08/2025 12:41 PM Procedure Note Wild Negrete MD - 03/08/2025 History: Pain after trauma Technique: Thin axial images through the cervical spine were obtained.The study was supplemented by sagittal and coronal reconstructed images.Automated exposure control was utilized. Comparison: 01/21/2025 Findings: The vertebral heights and disc spaces are well-maintained. Thereare mild degenerative changes. There is no evidence for an acute osseousabnormality. The odontoid is intact. The groundglass opacity in the left upper lobe described on the previousexamination was not included on the current imaging. Impression: CT cervical spine negative for an acute fracture. Finalized by Wild Negrete MD on 03/08/2025 12:41 PM us Pawan Trinidad MD IMG CT ORDERABLES Final Resu lt * CT brain without contrast (03/08/2025 12:23 PM EDT) Only the most recent of2 resultswithin the time period is included. Anatomical Region Laterality Modality Neuro, Head, Head and Neck, Neuro Covera N/A Computed Tomography 03/08/2025 12:2 8 PM EDT Narrative 03/08/2025 12:[address] BRAIN WO CONT CLINICAL INFORMATION: fall pain COMPARISON: 01/21/2025. PROCEDURE: Routine CT Head obtained without contrast. All CT scans at this facility use dose modulation, iterative reconstruction, and/or weight based dosing when appropriate to reduce radiation dose to as low as reasonably achievable. FINDINGS: No acute intracranial hemorrhage. No mass effect or midline shift. No extra- axial fluid collections. The ventricles and sulci are prominent consistent with global atrophy. Low-attenuation areas identified in the periventricular white matter consistent with microvascular ischemia. No depressed calvarial fracture. IMPRESSION: * No acute intracranial findings by CT. Finalized by Luis Alfredo Fields MD on 03/08/2025 12:29 PM Procedure Note Luis Alfredo Fields MD - 03/08/2025 CT BRAIN WO CONT CLINICAL INFORMATION: fall pain COMPARISON: 01/21/2025. PROCEDURE: Routine CT Head obtained without contrast. All CT scans at this facilityuse dose modulation, iterative reconstruction, and/or weight based dosingwhen appropriate to reduce radiation dose to as low as reasonablyachievable. FINDINGS: No acute intracranial hemorrhage. No mass effect or midline shift. Noextra-axial fluid collections. The ventricles and sulci are prominent consistent with global atrophy. Low-attenuation areas identified in the periventricular white matterconsistent with microvascular ischemia. No depressed calvarial fracture. IMPRESSION: * No acute intracranial findings by CT. Finalized by Luis Alfredo Fields MD on 03/08/2025 12:29 PM Pawan Trinidad MD IMG CT ORDERABLES Final Resu lt * X-ray pelvis 1 or 2 views [...] on 01/21/2025 6:01 PM us Tara Ho OBSTETRICS GYN PHYSICIAN-CUSHION MAKER HAND IMG DIAGNOSTIC IMAGIN G ORDERABLES Final Result [...] MD on 01/21/2025 5:15 PM Tara Ho OBSTETRICS GYN PHYSICIAN-CUSHION MAKER HAND IMG CT ORDERABLES Fin al Result from Last 3 Months Insurance [employer] [place] [address] [address] [place] [id number] Advance Directives * Full Code (Latest Code Status on File) Date Activated Date Inactivated Comments 03/12/2025 4:34 PM 03/22/2025 6:22 PM * Full Code Date Activated Date Inactivated Comments 03/09/2025 5:11 PM 03/12/2025 4:13 PM Care Teams [employer] Relationship Specialty Start Date End Date Sandy Tejeda, OBSTETRICS GYN PHYSICIAN-CUSHION MAKER HAND [address] [facility] [address] [place] [address] PCP - General Nurse Practitioner 10/18/24
--- OUTSIDE RECORDS SUMMARY | 2025-04-09 17:22 | XMS_ITS | Encounter Summary ---
Author Organization [facility] Address [address] [facility] [place] [address] Care Team Providers Care Java Tech Name Role Phone Unallocated, [facility] Provider [facility] Encounter Details Date Type Department Care Team ([facility] st Contact Info) Description 07/26/2024 Abstract JASWANT Mcgowan [facility] [address] [facility] [address] [place] [id number] Unallocated, Jaswant ProviderMD [address] [place] [address] Social History Tobacco Use Types Packs/Day Years [...] on filedocumented in this encounter Care Teams Java Tech Relationship Specialty Start Date End Date Unallocated, Jaswant Tamez MD [address] [place] [address] PCP - General Family Medicine 06/07/24 documented as of this encounter
--- OUTSIDE RECORDS SUMMARY | 2025-04-09 17:22 | XMS_ITS | Encounter Summary ---
Author Organization [facility] Address [address] [place] [address] Care Team Providers Care World Designer Name Role Phone Unallocated, Noms Provider Primary Care Provi epi Encounter Details Date Type Department Care Team ([facility] Contact Info) Description 03/10/2025 Results Follow-Up [facility] Juan M [facility] [address] [place] [phone] Sandy Tejeda, LITERACY CONSULTANT [address] [place] [address] ALL CBC WITH AUTO DIFF, [facility] CMP (CMP) (FOR REMOTE [facility] USE), ALL MAGNESIUM, [facility] DEPAKENE/ VALPROIC ACID Social History Tobacco Use Types Packs/Day Years [...] on filedocumented in this encounter Care Teams World Designer Relationship Specialty Start Date End Date Unallocated, Noms Provider, MD Vladimir [address] [facility] [place] [address] PCP - General Family Medicine 06/07/24 documented as of this encounter
--- OUTSIDE RECORDS SUMMARY | 2025-04-09 17:22 | XMS_ITS | Encounter Summary ---
Author Organization [facility] Healthcare Address [address] [place] [address] Care Team Providers Care Qa Automation Engineer Name Role Phone Carmen Rosales MD Primary Care Provider [phone] Jelena Caldwell CANCER PROGRAM CONSULTANT Unavailable [phone] Unallocated, Campbell Tamez MD Primary Care Provi epi Encounter Details Date Type Department Care Team ([facility] Contact Info) Description 12/14/2023 Abstract [facility] Family Medicine [address] [place] [id number] Carmen Rosales MD [address] [place] [address] Social History Tobacco Use Types [...] on filedocumented in this encounter Care Teams Qa Automation Engineer Relationship Specialty Start Date End Date Carmen Rosales MD [address] [place] [address] PCP - General Family Medicine 01/06/23 06/06/24 Unallocated, Campbell Tamez MD [address] [place] [address] PCP - General Family Medicine 06/07/24 Jelena Caldwell, TEA [address] [place] [address] Licensing Engineer Family Medicine 10/05/23 03/01/24 documented as of this encounter
--- OUTSIDE RECORDS SUMMARY | 2025-04-09 17:22 | XMS_ITS | Encounter Summary ---
Author Organization [facility] Address [address] [place] [address] Care Team Providers Care Engineering Design Supervisor Name Role Phone Carmen Rosales MD Primary Care Provider [phone] Jelena Caldwell DIRECTOR OF PARKS AND RECREATION Unavailable [phone] Unallocated, Noms Provider Primary Care Provi epi Encounter Details Date Type Department Care Team (Late st Contact Info) Description 12/13/2023 Orders Only [facility] [address] [place] [address] [facility] [address] [place] [address] Social History Tobacco Use Types Packs/Day Years [...] on filedocumented in this encounter Care Teams Engineering Design Supervisor Relationship Specialty Start Date End Date Carmen Rosales MD [address], [place] [id number] PCP - General Family Medicine 01/06/23 06/06/24 Unallocated, Noms Provider, [place] [address] PCP - General Family Medicine 06/07/24 Jelena Caldwlel, TEA [address] [place] [address] Orthopedic Shoes Salesperson Family Medicine 10/05/23 03/01/24 documented as of this encounter
--- OUTSIDE RECORDS SUMMARY | 2025-04-09 17:22 | XMS_ITS | Encounter Summary ---
Author Organization [facility] Address [address] [place] [address] Care Team Providers Care Weeder Name Role Phone Carmen Rosales MD Primary Care Provider [phone] UnallocatedJaswant MD Primary Care Provi epi Encounter Details Date Type Department Care Team ([facility] st Contact Info) Description 03/23/2024 Abstract JASWANT Mcgowan [facility] [address] [facility] [address] [place] [phone] UnallocatedJaswant MD [address] [place] [address] Social History Tobacco Use Types Packs/Day Years [...] on filedocumented in this encounter Care Teams Weeder Relationship Specialty Start Date End Date Carmen Rosales MD [address] [place] [id number] PCP - General Family Medicine 01/06/23 06/06/24 Unallocated, MD [address] [place], [place] [id number] PCP - General Family Medicine 06/07/24 documented as of this encounter
--- OUTSIDE RECORDS SUMMARY | 2025-04-09 17:22 | XMS_ITS | Encounter Summary ---
Author Organization [facility] Address [address] [place] [address] Care Team Providers Care Heading Saw Operator Name Role Phone Carmen Rosales MD Primary Care Provider [phone] UnallocatedJaswant MD Primary Care Provi epi Encounter Details Date Type Department Care Team ([facility] st Contact Info) Description 03/23/2024 Abstract JASWANT Mcgowan [facility] [address] [facility] [address] [place] [phone] UnallocatedJaswant MD [address] [place] [address] Social History Tobacco Use Types Packs/Day Years [...] on filedocumented in this encounter Care Teams Heading Saw Operator Relationship Specialty Start Date End Date Carmen Rosales MD [address] [place] [id number] PCP - General Family Medicine 01/06/23 06/06/24 Unallocated, MD [address] [place], [place] [id number] PCP - General Family Medicine 06/07/24 documented as of this encounter
--- OUTSIDE RECORDS SUMMARY | 2025-04-09 17:23 | XMS_ITS | Clinical Summary ---
Author Organization [facility] Address [address], [address] [place] [address] Care Team Providers Care Shipping Team Leader Name Role Phone Marla Acevedo MD Primary [...] Comments DTaP/Tdap/Td vaccine (1 - Tdap) 01/12/1975 Flu vaccine (#1) 02/15/2025 COVID-19 Vaccine ( - 2023-2 5 season) 2025 Respiratory Syncytial Virus (RSV) or age 60 yrs+ (1 - 1-dose 75+ series) 01/12/2031 Polio vaccine Aged Out No longer elig ible based on patient's age to complete this topic Care Teams Shipping Team Leader Relationship Specialty Start Date End Date Marla Acevedo MD [address] [place] [address] PCP - General Psychiatry 11/11/21
--- OUTSIDE RECORDS SUMMARY | 2025-04-09 17:23 | XMS_ITS | Continuity of Care Document ---
Author Organization [facility] up Address [address] [place] [address] Insurance Providers Payer Plan Claims Address Claims Phone Policy Number Group Number Relation Employer Guarantor Name Guarantor Guarantor Address Guarantor Phone Medic aid [id number] Self Rosemary Horowitz [address] [place] [id number] Medic are Outpa tient [id number] Self Rosemary Horowitz [address] [place] [id number] Medic are Nonpa tient [id number] Self Rosemary Horowitz [address] [place] [id number] Problems Condition ICD9 code ICD10 code SNOMED code Start Date End Date S tatus Unspecified fracture of first lumbar vertebra, subsequent encounter for fracture with routine healing S32.019D 03/15/2025 Active Parkinson's disease without dyskinesia, without mention of fluctuations G20.A1 03/15/2025 Active Dysphagia, unspecified R13.10 03/15/2025 Active Primary hyperparathyroidism E21.0 03/15/2025 Activ e Obstructive sleep apnea (adult) (pediatric) G47.33 03/15/2025 Activ e Vitamin D deficiency, unspecified E55.9 03/15/2025 Active Essential (primary) hypertension I10 03/15/2025 Active Bipolar disorder, unspecified F31.9 03/15/2025 Active Tremor, unspecified R25.1 03/15/2025 A ctive Mixed hyperlipidemia E78.2 03/15/2025 Active Unspecified symptoms and signs involving the nervous system R29.90 03/15/2025 Active 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 03/15/2025 Active Personal history of malignant melanoma of skin Z85.820 03/15/2025 Active Constipation, unspecified K59.00 03/22/2025 Active Restlessness and agitation R45.1 03/22/2025 Active Unspecified open-angle glaucoma, stage unspecified H40.10X0 03/22/2025 Active Limitation of activities due to disability Z73.6 03/23/2025 Active Muscle weakness (generalized) M62.81 03/24/2025 Active Difficulty in walking, not elsewhere classified R26.2 03/24/2025 Active Primary insomnia F51.01 03/22/2025 Acti ve Nutritional deficiency, unspecified E63.9 03/26/2025 Active Other speech disturbances R47.89 03/25/2025 Active Results Test Result Date/Time Value / Unit Interp. Refere nce Range Tuberculosis reaction wheal[ 78921-0] Tuberculosis reaction wheal [84901-3] 04/01/2025 04:00 PM 0 mm NEG Tuberculosis reaction wheal[ 46853-6] Tuberculosis reaction wheal [30793-8] 04/01/2025 04:00 PM See note TB test Tuberculosis reaction wheal[ 79427-4] Tuberculosis reaction wheal [52586-4] 03/22/2025 02:00 PM 0 mm NEG Allergies, adverse reactions, alerts Substance Reaction Date Status Type Percocet 03/22/2025 Non Drug Immunizations Vaccine Route Date Status Pneumococcal Vaccine Unassigned Route of Administratio n 05/07/2019 Completed Tetanus Vaccine Unassigned Route of Administration Completed Medications Medication Instructions Route Dosage Frequency Start Date Stop Date Indications Status acetaminophen 325 mg tablet (acetaminophen ) 2 tablets, oral, Every 4 Hours - PRN oral 1.0 4.0 h 2024 Unspecified fracture of first lumbar vertebra, subsequent encounter for fracture with routine healing Active acidophilus-pe ctin, citrus 25 million cell -100 mg tablet (acidophilus-p ectin, citrus) 1 tablet, oral, Once A Day, Health maintenance oral 1.0 1.0 d 2024 Active atorvastatin 40 mg tablet (atorvastatin) 1 tablet, oral, At Bedtime oral 1.0 2024 Mixed hyperlipidemia Active aspirin 81 mg tablet,delayed release (DR/EC) (aspirin) 1 tablet, oral, Once A Day, Preventative oral 1.0 1.0 d 2024 Active carbidopa-levo dopa 25-100 mg tablet (carbidopa-lev odopa) 1 tablet, oral, Three Times A Day oral 1.0 8.0 h 2024 Parkinson's disease without dyskinesia, without mention of fluctuations Active bisacodyl 10 mg suppository (bisacodyl) 1 supp, rectal, Once A Day - PRN rectal 1.0 1.0 d 2024 Constipation, unspecified Active Maalox Advanced (alum-mag hydroxide-devi th) 200-200-20 mg/5 mL suspension (Maalox Advanced (alum-mag hydroxide-devi th)) 30ml, oral, Every 6 Hours - PRN, Dyspepsia oral 1.0 6.0 h 2024 Active cholecalcifero l (vitamin D3) 50 mcg (2,000 unit) tablet (cholecalcifer ol (vitamin D3)) 1 tablet, oral, Once A Day oral 1.0 1.0 d 2024 Vitamin D deficiency, unspecified Active clonazepam 0.5 mg tablet (clonazepam) 1 tablet, oral, Twice A Day oral 1.0 12.0 h 2024 Tremor, unspecified Active diphenhydramin e HCl 50 mg capsule (diphenhydrami ne HCl) 1 capsule, oral, Every 6 Hours oral 1.0 6.0 h 03/23 Restlessness and agitation Active divalproex 250 mg tablet,delayed release (DR/EC) (divalproex) 1 tablet, oral, Once A Day, Take with 500mg dose to equal 750mg oral 1.0 1.0 d 2024 Bipolar disorder, unspecified Active divalproex 500 mg tablet,delayed release (DR/EC) (divalproex) 1 tablet, oral, Once A Day, Take with 250mg to equal 750mg oral 1.0 1.0 d 2024 Bipolar disorder, unspecified Active furosemide 20 mg tablet (furosemide) 1 tablet, oral, Once A Day oral 1.0 1.0 d 2024 Essential (primary) hypertension Active gabapentin 400 mg capsule (gabapentin) 1 capsule, oral, Three Times A Day oral 1.0 8.0 h 2024 Unspecified symptoms and signs involving the nervous system Active haloperidol 5 mg tablet (haloperidol) 1 tablet, oral, Every 6 Hours - PRN oral 1.0 6.0 h 03/25 Restlessness and agitation Active lamotrigine 200 mg tablet (lamotrigine) 1 tablet, oral, Once A Day oral 1.0 1.0 d 2024 Bipolar disorder, unspecified Active loperamide 2 mg capsule (loperamide) 1 tab, oral, As Needed, Give 1 tab as needed every 6 hours as needed for loose stools. oral 1.0 1.0 d 2024 Active latanoprost 0.005 % drops (latanoprost) 1 gtt both eyes, ophthalmic (eye), Once A Day 1.0 1.0 d 2024 Unspecified open-angle glaucoma, stage unspecified Active magnesium 200 mg tablet (magnesium) 2, oral, Once A Day, Health supplement oral 1.0 1.0 d 03/23 Active melatonin 10 mg tablet (melatonin) 1 tablet, oral, At Bedtime oral 1.0 2024 Restlessness and agitation Active Metamucil (psyllium husk) 3.4 gram/5.4 gram powder (Metamucil (psyllium husk)) 3.4 grams, oral, Once A Day oral 1.0 1.0 d 2024 Constipation, unspecified Active Miralax (polyethylene glycol 3350) 17 gram/dose powder (Miralax (polyethylene glycol 3350)) 17 grams, oral, Once A Day - PRN oral 1.0 1.0 d 2024 Constipation, unspecified Active mirtazapine 15 mg tablet (mirtazapine) 1 tablet, oral, At Bedtime oral 1.0 2024 Bipolar disorder, unspecified Active Multiple Vitamins (multivitamin) - tablet (Multiple Vitamins (multivitamin) ) 1 tablet, oral, Once A Day, savage maintenance oral 1.0 1.0 d 2024 Active naloxone 4 mg/actuation spray,non-aero saumya (naloxone) 1 spray into alt nostrils, nasal, Once A Day - PRN nasal 1.0 1.0 d 03/23 Active primidone 50 mg tablet (primidone) 4 tablets, oral, Once A Day, Take 4 tablets to equal 200mg oral 1.0 1.0 d 2024 Tremor, unspecified Active primidone 250 mg tablet (primidone) 1 tablet, oral, At Bedtime oral 1.0 03/23 Tremor, unspecified Active Saline Nasal (sodium chloride) 0.65 % aerosol,spray (Saline Nasal (sodium chloride)) 2 sprays each nostril, nasal, Every 2 Hours - PRN, dryness of the nose nasal 1.0 2.0 h 2024 Active sennosides-doc usate sodium 8.6-50 mg tablet (sennosides-do cusate sodium) 1 tablet, oral, Twice A Day - PRN oral 1.0 12.0 h 2024 Constipation, unspecified Active timolol 0.5 % drops (timolol) 1 gtt in both eyes, ophthalmic (eye), Once A Day 1.0 1.0 d 2024 Unspecified open-angle glaucoma, stage unspecified Active tizanidine 2 mg tablet (tizanidine) 1 tablet, oral, Every 8 Hours - PRN oral 1.0 8.0 h 2024 Unspecified fracture of first lumbar vertebra, subsequent encounter for fracture with routine healing Active tramadol 50 mg tablet (tramadol) 1 tablet, oral, Every 6 Hours - PRN oral 1.0 6.0 h 2024 Unspecified fracture of first lumbar vertebra, subsequent encounter for fracture with routine healing Active diphenhydramin e HCl 50 mg capsule (diphenhydrami ne HCl) 1 capsule, oral, Every 6 Hours - PRN oral 1.0 6.0 h 03/25 Restlessness and agitation Active magnesium oxide 400 mg magnesium tablet (magnesium oxide) 400mg, oral, Once A Day oral 1.0 1.0 d 2024 Tremor, unspecified Active primidone 50 mg tablet (primidone) 5 tablets, oral, At Bedtime, Administer 5 tablets at HS to equal 250mg total oral 1.0 1.0 d 03/23 Bipolar disorder, unspecified Active psyllium husk (bulk) 100 % powder (psyllium husk (bulk)) 1 3.4 g packet, miscellaneous , Once A Day 1.0 1.0 d 2024 Constipation, unspecified Active naloxone 4 mg/actuation spray,non-aero saumya (naloxone) 1 spray into alt nostrils, nasal, Once A Day - PRN, opioid use nasal 1.0 1.0 d 2024 Active fentanyl 25 mcg/hr patch 72 hour (fentanyl) one patch, transdermal, Once A Day Every 3 Days transderm al 1.0 1.0 d 2024 Unspecified fracture of first lumbar vertebra, subsequent encounter for fracture with routine healing Active Vital Signs Date Vital Result Comment 03/22/2025 06:01 PM Temperature (8310-5) 97.7 [degF] Oxygen Saturation (05142-9) 95 % Respiratory Rate (9279-1) 18 /min Heart Rate (8867-4) 82 /min Blood Pressure Systolic (8480-6) 124 mm[Hg] Blood Pressure Diastolic (8462-4) 58 mm[Hg] Body Height (8302-2) 65 [in_us] 03/22/2025 06:21 PM Body Weight (95499-2) 167.5 [lb_av ] Body Mass Index (63475-4) 27.87 kg/m2 03/23/2025 12:21 PM Temperature (8310-5) 97.9 [degF] Oxygen Saturation (08424-0) 96 % Respiratory Rate (9279-1) 18 /min Heart Rate (8867-4) 78 /min Blood Pressure Systolic (8480-6) 122 mm[Hg] Blood Pressure Diastolic (8462-4) 66 mm[Hg] 03/23/2025 01:54 PM Temperature (8310-5) 97.9 [degF] Oxygen Saturation (62629-2) 97 % Respiratory Rate (9279-1) 18 /min Heart Rate (8867-4) 85 /min Blood Pressure Systolic (8480-6) 112 mm[Hg] Blood Pressure Diastolic (8462-4) 63 mm[Hg] 03/24/2025 12:22 AM Temperature (8310-5) 97.3 [degF] Oxygen Saturation (30190-5) 98 % Respiratory Rate (9279-1) 18 /min Heart Rate (8867-4) 89 /min Blood Pressure Systolic (8480-6) 119 mm[Hg] Blood Pressure Diastolic (8462-4) 66 mm[Hg] 03/24/2025 10:13 AM Temperature (8310-5) 97.6 [degF] Oxygen Saturation (31042-8) 98 % Respiratory Rate (9279-1) 18 /min Heart Rate (8867-4) 88 /min Blood Pressure Systolic (8480-6) 126 mm[Hg] Blood Pressure Diastolic (8462-4) 72 mm[Hg] 03/25/2025 06:25 AM Temperature (8310-5) 97.4 [degF] Oxygen Saturation (47946-8) 98 % Respiratory Rate (9279-1) 18 /min Heart Rate (8867-4) 85 /min Blood Pressure Systolic (8480-6) 124 mm[Hg] Blood Pressure Diastolic (8462-4) 71 mm[Hg] 03/25/2025 09:55 AM Temperature (8310-5) 98.1 [degF] Oxygen Saturation (93299-0) 98 % Respiratory Rate (9279-1) 18 /min Heart Rate (8867-4) 81 /min Blood Pressure Systolic (8480-6) 141 mm[Hg] Blood Pressure Diastolic (8462-4) 71 mm[Hg] 03/25/2025 12:17 PM Temperature (8310-5) 98.1 [degF] Oxygen Saturation (82688-4) 98 % Respiratory Rate (9279-1) 18 /min Heart Rate (8867-4) 81 /min Blood Pressure Systolic (8480-6) 141 mm[Hg] Blood Pressure Diastolic (8462-4) 71 mm[Hg] 03/25/2025 11:30 PM Temperature (8310-5) 98 [degF] Respiratory Rate (9279-1) 18 /min Heart Rate (8867-4) 82 /min Blood Pressure Systolic (8480-6) 132 mm[Hg] Blood Pressure Diastolic (8462-4) 70 mm[Hg] 03/25/2025 11:31 PM Oxygen Saturation (23558-7) 97 % 03/26/2025 10:45 AM Temperature (8310-5) 97.8 [degF] Oxygen Saturation (79707-6) 95 % Respiratory Rate (9279-1) 16 /min Heart Rate (8867-4) 69 /min Blood Pressure Systolic (8480-6) 110 mm[Hg] Blood Pressure Diastolic (8462-4) 54 mm[Hg] 03/26/2025 12:02 PM Temperature (8310-5) 97.8 [degF] Oxygen Saturation (89760-2) 95 % Respiratory Rate (9279-1) 16 /min Heart Rate (8867-4) 69 /min Blood Pressure Systolic (8480-6) 110 mm[Hg] Blood Pressure Diastolic (8462-4) 54 mm[Hg] 03/27/2025 02:35 AM Body Weight (90579-4) 165.5 [lb_av ] Body Mass Index (41920-7) 27.54 kg/m2 03/27/2025 09:17 AM Temperature (8310-5) 98 [degF] Oxygen Saturation (61377-0) 97 % Respiratory Rate (9279-1) 16 /min Heart Rate (8867-4) 82 /min Blood Pressure Systolic (8480-6) 135 mm[Hg] Blood Pressure Diastolic (8462-4) 66 mm[Hg] 03/28/2025 10:46 AM Temperature (8310-5) 98.1 [degF] Oxygen Saturation (81324-4) 97 % Respiratory Rate (9279-1) 16 /min Heart Rate (8867-4) 78 /min Blood Pressure Systolic (8480-6) 130 mm[Hg] Blood Pressure Diastolic (8462-4) 62 mm[Hg] 03/28/2025 12:13 PM Temperature (8310-5) 97.8 [degF] Oxygen Saturation (41825-6) 96 % Respiratory Rate (9279-1) 18 /min Heart Rate (8867-4) 85 /min Blood Pressure Systolic (8480-6) 120 mm[Hg] Blood Pressure Diastolic (8462-4) 61 mm[Hg] 03/29/2025 08:33 AM Temperature (8310-5) 98.5 [degF] Oxygen Saturation (04996-5) 96 % Respiratory Rate (9279-1) 18 /min Heart Rate (8867-4) 86 /min Blood Pressure Systolic (8480-6) 131 mm[Hg] Blood Pressure Diastolic (8462-4) 79 mm[Hg] 03/30/2025 11:17 AM Temperature (8310-5) 97.8 [degF] Oxygen Saturation (83267-4) 95 % Respiratory Rate (9279-1) 16 /min Heart Rate (8867-4) 69 /min Blood Pressure Systolic (8480-6) 110 mm[Hg] Blood Pressure Diastolic (8462-4) 54 mm[Hg] 03/30/2025 10:52 AM Temperature (8310-5) 97.8 [degF] Oxygen Saturation (34997-2) 95 % Respiratory Rate (9279-1) 16 /min Heart Rate (8867-4) 69 /min Blood Pressure Systolic (8480-6) 110 mm[Hg] Blood Pressure Diastolic (8462-4) 54 mm[Hg] 03/31/2025 11:05 AM Temperature (8310-5) 98.2 [degF] Oxygen Saturation (16910-5) 95 % Respiratory Rate (9279-1) 16 /min Heart Rate (8867-4) 79 /min Blood Pressure Systolic (8480-6) 126 mm[Hg] Blood Pressure Diastolic (8462-4) 63 mm[Hg] 03/31/2025 01:39 PM Temperature (8310-5) 98.2 [degF] Oxygen Saturation (87884-7) 95 % Respiratory Rate (9279-1) 16 /min Heart Rate (8867-4) 79 /min Blood Pressure Systolic (8480-6) 126 mm[Hg] Blood Pressure Diastolic (8462-4) 63 mm[Hg] 04/01/2025 10:15 AM Temperature (8310-5) 98 [degF] Oxygen Saturation (02010-3) 95 % Respiratory Rate (9279-1) 18 /min Heart Rate (8867-4) 86 /min Blood Pressure Systolic (8480-6) 118 mm[Hg] Blood Pressure Diastolic (8462-4) 67 mm[Hg] 04/02/2025 10:35 AM Temperature (8310-5) 97.6 [degF] Oxygen Saturation (75389-6) 96 % Respiratory Rate (9279-1) 18 /min Heart Rate (8867-4) 80 /min Blood Pressure Systolic (8480-6) 106 mm[Hg] Blood Pressure Diastolic (8462-4) 59 mm[Hg] 04/03/2025 09:52 AM Temperature (8310-5) 97.8 [degF] Oxygen Saturation (22598-5) 95 % Respiratory Rate (9279-1) 16 /min Heart Rate (8867-4) 86 /min Blood Pressure Systolic (8480-6) 129 mm[Hg] Blood Pressure Diastolic (8462-4) 62 mm[Hg] 04/04/2025 09:42 AM Temperature (8310-5) 97.5 [degF] Oxygen Saturation (62719-1) 93 % Respiratory Rate (9279-1) 18 /min Heart Rate (8867-4) 80 /min Blood Pressure Systolic (8480-6) 110 mm[Hg] Blood Pressure Diastolic (8462-4) 72 mm[Hg] 04/05/2025 09:43 AM Temperature (8310-5) 98.2 [degF] Oxygen Saturation (37610-7) 96 % Respiratory Rate (9279-1) 16 /min Heart Rate (8867-4) 82 /min Blood Pressure Systolic (8480-6) 129 mm[Hg] Blood Pressure Diastolic (8462-4) 63 mm[Hg] 04/05/2025 11:12 AM Temperature (8310-5) 98.2 [degF] Oxygen Saturation (49009-6) 96 % Respiratory Rate (9279-1) 16 /min Heart Rate (8867-4) 82 /min Blood Pressure Systolic (8480-6) 129 mm[Hg] Blood Pressure Diastolic (8462-4) 63 mm[Hg] 04/06/2025 08:58 AM Temperature (8310-5) 98.4 [degF] Oxygen Saturation (39489-4) 93 % Respiratory Rate (9279-1) 18 /min Heart Rate (8867-4) 88 /min Blood Pressure Systolic (8480-6) 126 mm[Hg] Blood Pressure Diastolic (8462-4) 67 mm[Hg] 04/07/2025 11:08 AM Temperature (8310-5) 98.5 [degF] Oxygen Saturation (23186-5) 96 % Respiratory Rate (9279-1) 18 /min Heart Rate (8867-4) 85 /min Blood Pressure Systolic (8480-6) 117 mm[Hg] Blood Pressure Diastolic (8462-4) 66 mm[Hg] 04/08/2025 11:16 AM Temperature (8310-5) 97.9 [degF] Oxygen Saturation (32183-8) 96 % Respiratory Rate (9279-1) 16 /min Heart Rate (8867-4) 99 /min Blood Pressure Systolic (8480-6) 124 mm[Hg] Blood Pressure Diastolic (8462-4) 70 mm[Hg] 04/08/2025 10:40 AM Temperature (8310-5) 97.9 [degF] Oxygen Saturation (03351-7) 96 % Respiratory Rate (9279-1) 16 /min Heart Rate (8867-4) 99 /min Blood Pressure Systolic (8480-6) 124 mm[Hg] Blood Pressure Diastolic (8462-4) 70 mm[Hg] 04/09/2025 01:37 PM Temperature (8310-5) 97 [degF] Oxygen Saturation (82055-5) 94 % Respiratory Rate (9279-1) 18 /min Heart Rate (8867-4) 93 /min Blood Pressure Systolic (8480-6) 152 mm[Hg] Blood Pressure Diastolic (8462-4) 68 mm[Hg] Social History No smoking Hx information available Encounters Type CPT Code Date Location Provider Indication s encounter report 03/22/2025 12:59 PM Roula Andrews MD encounter report 03/22/2025 05:45 PM Roula Andrews MD Advance Directives Directive Description Verification Date Supporting Document(s) Other Directive
[2025-04-09 17:29] LABS: Hematocrit 38.9 % (36.0-48.0); Hemoglobin 12.7 g/dL (12.0-16.0); Mean Corpuscular HGB Conc 32.6 g/dL (29.9-35.2); Mean Corpuscular Hemoglobin 32.6 pg (26.7-34.0); Mean Corpuscular Volume 99.7 fL (81.0-99.0); Platelet Count 165 10^3/uL (150-450); Red Blood Count 3.90 10^6/uL (4.20-5.40); White Blood Count 12.8 10^3/uL (4.0-11.0)
[2025-04-09 18:05] LABS: Anion Gap 11.4; Blood Urea Nitrogen 8.0 mg/dL (7.0-18.0); Calcium 8.5 mg/dL (8.5-10.1); Carbon Dioxide 30.9 mmol/L (21.0-32.0); Chloride 99 mmol/L (98-107); Estimated GFR (African America >60 (>=60 mL/min/1.73m^2); Estimated GFR (Non-African Ame >60 (>=60 mL/min/1.73m^2); Glucose 97 mg/dL (74-106); Potassium 4.3 mmol/L (3.5-5.1); Sodium 137 mmol/L (136-145)
== END 2025-04-09 17:18 | disposition home or self-care (01) ==
LOC: LAB 17:17
PROVIDERS: PCP Nurse Practitioner Family; Visit Provider Family Medicine
DX: R41.82 Altered mental status, unspecified (principal)
CPT/HCPCS: 36415; 80048; 85027